=== PATIENT | female | born 1935 | race Caucasian/White ===

== ENCOUNTER 2017-02-01 21:40 | Inpatient (IN) | payer MEDICARE, MEDICAID ==
[~2017-02-01] VITALS: Ht 172.7 cm; Wt 87.0 kg
[~2017-02-01 21:40] MED LIST: ASPI325T PO; LORTA5 PO
[2017-02-01 21:50] VITALS: BP 126/64; PULSE 103; RESP 18; TEMP 98; O2SAT 92
[2017-02-01] MEDS ORDERED: SODIUM CHLOR 0.9% 1000 ML INJ 1,000 ML IV SCH (21:53)
[2017-02-01] MEDS ORDERED: ATOR20TA15 PO (21:55)
[2017-02-01] MEDS ORDERED: METO25TA3 PO (21:55)
[2017-02-01] MEDS ORDERED: PLAV75TA29 PO (21:55)
[2017-02-01] MEDS ORDERED: LINA145C PO (21:55)
[2017-02-01] MEDS ORDERED: RESP: ALBUTEROL 2.5 MG/IPRATROPIUM 0.5 MG NEB (SCH) INH ONE (22:00)
[2017-02-01 22:21] LABS: AUTOMATED NEUTROPHIL # 5.2 TH/MM3 (1.8-7.7); BASOPHIL % 0.4 % (0.0-2.0); EOSINOPHIL # 0.1 TH/MM3 (0-0.4); EOSINOPHIL % 1.3 % (0.0-4.0); HEMATOCRIT 39.2 % (35.0-46.0); HEMO FLAGS DIFF FINAL; LYMPH % 27.9 % (9.0-44.0); LYMPHOCYTE # 2.3 TH/MM3 (1.0-4.8); MEAN CELL VOLUME 94.4 FL (80.0-100.0); MEAN CORPUSCULAR HEMOGLOBIN 31.2 PG (27.0-34.0); MEAN CORPUSCULAR HGB CONC 33.1 % (32.0-36.0); MONO % 8.2 % (0.0-8.0); NEUT % 62.2 % (16.0-70.0); PLATELET COUNT 183 TH/MM3 (150-450); RED BLOOD COUNT 4.16 MIL/MM3 (4.00-5.30); RED CELL DISTRIBUTION WIDTH 14.7 % (11.6-17.2); WHITE BLOOD COUNT 8.3 TH/MM3 (4.0-11.0)
--- NOTE | 2017-02-01 22:22 | PD ---
HPI Chief Complaint: GI Complaint Time Seen by Provider: 21:45 Travel History International Travel<30 days: No Contact w/Intl Traveler<30days: No Traveled to known affect area: No History of Present Illness HPI 83-year-old female that presents to the ED for evaluation of constipation 10 days. Patient has a history of asthma as well as ACS. Per patient she has no chest pain but she was also found to be short of breath on examination by ambulance. Patient called ambulance because she couldn't handle the constipation anymore. Per patient she went to urgent care yesterday and she was prescribed Linzess which has not provided any relief. Per patient she started everything [id number] including an NM with minimal relief. She does pass gas but she's not able to pass stool. She denies any recent surgeries or any surgeries to her abdomen. The only surgery she's ever had was stents to her heart this was 2 years ago. She states that she feels short of breath but denies any other symptom. She was given breathing treatments by ambulance with resolution of this. Per patient she feels nauseous but she has not vomited. Per patient she's not been able to take the medication today because she feels very nauseous. She states having abdominal cramping mainly on the lower abdomen. No blood in the stool. No fevers chills or sweats. No other medical issues at this time. No chest pain. Pain per patient if any is 4 out of 10. Patient personally. Denies taking any narcotic medications. PFSH Past Medical History Arthritis: No Asthma: Yes Heart Rhythm Problems: No Cancer: No Cardiovascular Problems: Yes High Cholesterol: Yes Chest Pain: No Congestive Heart Failure: Yes COPD: No Diminished Hearing: No Endocrine: No Genitourinary: No Hypertension: Yes Immune Disorder: No Musculoskeletal: No Neurologic: No Psychiatric: No Reproductive: No Respiratory: Yes Myocardial Infarction: Yes Sleep Apnea: Yes Influenza Vaccination: No Menopausal: Yes : 9 Para: 9 Past Surgical History Abdominal Surgery: No Cardiac Surgery: Yes (STENT) Ear Surgery: No Endocrine Surgery: No Eye Surgery: Yes (RIGHT EYE REMOVED CATARACTS) Genitourinary Surgery: No Gynecologic Surgery: No Oral Surgery: No Thoracic Surgery: No Other Surgery: Yes Social History Alcohol Use: No Tobacco Use: No Substance Use: No Allergies-Medications (Allergen,Severity, Reaction): Coded Allergies: penicillin G (Unverified Allergy, Severe, 02/01/17) Reported Meds & Prescriptions Reported Meds & Active Scripts Active Reported Linzess (Linaclotide) 145 Mcg Cap 145 Mcg PO DAILY Plavix (Clopidogrel Bisulfate) 75 Mg Tab 75 Mg PO HS Atorvastatin (Atorvastatin Calcium) 20 Mg Tab 20 Mg PO HS Metoprolol Tartrate 25 Mg Tab 25 Mg PO DAILY Review of Systems Except as stated in HPI: all other systems reviewed are Neg Physical Exam Narrative GENERAL: SKIN: Warm and dry. HEAD: Atraumatic. Normocephalic. EYES: Pupils equal and round. No scleral icterus. No injection or drainage. ENT: No nasal bleeding or discharge. Mucous membranes pink and moist. Tongue is midline. No uvula deviation. NECK: Trachea midline. No JVD. CARDIOVASCULAR: Regular rate and rhythm. No murmurs, S3, S4. RESPIRATORY: No accessory muscle use. Expiratory wheezing heard in all lung manriquez. Breath sounds equal bilaterally. GASTROINTESTINAL: Abdomen soft, mildly tender in the lower abdomen, nondistended. Hepatic and splenic margins not palpable. Rectal exam done with female nurse present. Patient does have old hemorrhoids on the and no wall but none insight. No obvious masses or deformities or stool noted on rectal exam. Hemoccult was done and was negative. MUSCULOSKELETAL: Extremities without clubbing, cyanosis, or edema. No obvious deformities. Full range of motion of the upper and lower extremities bilaterally. 2+ pulses bilaterally. NEUROLOGICAL: Awake and alert. No obvious cranial nerve deficits. Motor grossly within normal limits. Five out of 5 muscle strength in the arms and legs. Normal speech. PSYCHIATRIC: Appropriate mood and affect; insight and judgment normal. Data Data Last Documented VS Vital Signs Date Time Temp Pulse Resp B/P (MAP) Pulse Ox O2 Delivery O2 Flow Rate FiO2 02/01/17 21:50 98.0 103 18 126/64 (84) 92 Orders Orders Complete Blood Count With Diff (02/01/17 21:53) Comprehensive Metabolic Panel (02/01/17 21:53) Lipase (02/01/17 21:53) Urinalysis - C+S If Indicated (02/01/17 21:53) Abdomen, Flat & Upright (02/01/17 ) Iv Access Insert/Monitor (02/01/17 21:53) Sodium Chlor 0.9% 1000 Ml Inj (Ns 1000 M (02/01/17 21:53) Chest, Single Ap (02/01/17 21:53) Albuterol-Ipratropium Neb (Duoneb Neb) (02/01/17 22:00) Fleets Enema (Adult) (Fleets Enema (Adul (02/01/17 22:30) Labs Laboratory Tests Test 02/01/17 21:22 White Blood Count 8.3 TH/MM3 Red Blood Count 4.16 MIL/MM3 Hemoglobin 13.0 GM/DL Hematocrit 39.2 % Mean Corpuscular Volume 94.4 FL Mean Corpuscular Hemoglobin 31.2 PG Mean Corpuscular Hemoglobin Concent 33.1 % Red Cell Distribution Width 14.7 % Platelet Count 183 TH/MM3 Mean Platelet Volume 9.7 FL Neutrophils (%) (Auto) 62.2 % Lymphocytes (%) (Auto) 27.9 % Monocytes (%) (Auto) 8.2 % Eosinophils (%) (Auto) 1.3 % Basophils (%) (Auto) 0.4 % Neutrophils # (Auto) 5.2 TH/MM3 Lymphocytes # (Auto) 2.3 TH/MM3 Monocytes # (Auto) 0.7 TH/MM3 Eosinophils # (Auto) 0.1 TH/MM3 Basophils # (Auto) 0.0 TH/MM3 CBC Comment DIFF FINAL Differential Comment MDM Medical Decision Making Medical Screen Exam Complete: Yes Emergency Medical Condition: Yes Medical Record Reviewed: Yes Differential Diagnosis Constipation versus COPD versus asthma versus diverticulitis versus obstruction versus partial obstruction Narrative Course 81-year-old female that presents to the ED for evaluation of constipation. Patient was properly examined and was found to have signs and symptoms consistent appears to be constipation. Possible asthma exacerbation as well. On exam patient does have symmetric and wheezing heard but she is not symptomatic at this time after given 2 breathing treatments with good relief. Labs and imaging ordered. Patient was given a breathing treatment here. Given IV fluids. Rectal exam was benign and I do not feel any sign of fecal impaction to disimpact. Case signed out to my attending pending disposition. Corey Castillo Feb 01, 2017 22:22
[2017-02-01] MEDS ORDERED: SOD PHOSPHATE/SOD BIPHOSPHATE (ADULT) ENEMA 133ML RECTAL ONE (22:30)
[2017-02-01 22:58] LABS: ANION GAP 9 MEQ/L (5-15); AST (GOT) 17 U/L (15-37); BICARBONATE 28.3 MEQ/L (21.0-32.0); BLOOD UREA NITROGEN 10 MG/DL (7-18); CHLORIDE 103 MEQ/L (98-107); GLOMERULAR FILTRATION RATE 74 ML/MIN (>89); SODIUM (NA) 140 MEQ/L (136-145)
[2017-02-01 22:59] LABS: ALT (GPT) 17 U/L (10-53)
[2017-02-01 23:01] LABS: ALKALINE PHOSPHATASE 80 U/L (45-117); TOTAL BILIRUBIN ADULT 0.6 MG/DL (0.2-1.0)
--- NOTE | 2017-02-01 23:02 | RADRPT ---
EXAM DATE/TIME: 02/01/2017 22:42 [facility] COMPARISON: No previous studies available for comparison. INDICATIONS : Shortness of breath. MEDICAL HISTORY : Hypertension. Hypercholesterolemia. Congestive heart failure. Asthma. SURGICAL HISTORY : Cardiac stent. ENCOUNTER: Initial ACUITY: 3 days PAIN SCORE: 0/10 LOCATION: Bilateral chest FINDINGS: Trace basilar atelectasis, mostly on the left. No large effusion. No pneumothorax. Heart size upper limits of normal. Thoracic aorta is atherosclerotic. CONCLUSION: Very mild bibasilar atelectasis and borderline cardiomegaly. Francis Zafar MD on February 01, 2017 at 23:00 Board Certified Radiologist. This report was verified electronically.
--- NOTE | 2017-02-01 23:05 | RADRPT ---
EXAM DATE/TIME: 02/01/2017 22:43 [facility] COMPARISON: No previous studies available for comparison. INDICATIONS : Abdominal pain and constipation. MEDICAL HISTORY : Hypertension. Hypercholesterolemia. Congestive heart failure. Asthma. SURGICAL HISTORY : Cardiac stent. ENCOUNTER: Initial ACUITY: 1 week PAIN SCORE: 8/10 LOCATION: Abdomen. FINDINGS: Colon is upper limits of normal diffusely. There is thumbprinting noted indicative of wall thickening , especially transverse colon. No small bowel or gastric distention. No free air. CONCLUSION: Suspected colitis. Nonobstructive pattern. Francis Zafar MD on February 01, 2017 at 23:03 Board Certified Radiologist. This report was verified electronically.
--- NOTE | 2017-02-01 23:47 | PD ---
Data Data Last Documented VS Vital Signs Date Time Temp Pulse Resp B/P (MAP) Pulse Ox O2 Delivery O2 Flow Rate FiO2 02/01/17 21:50 98.0 103 18 126/64 (84) 92 Orders Orders Complete Blood Count With Diff (02/01/17 21:53) Comprehensive Metabolic Panel (02/01/17 21:53) Lipase (02/01/17 21:53) Urinalysis - C+S If Indicated (02/01/17 21:53) Abdomen, Flat & Upright (02/01/17 ) Iv Access Insert/Monitor (02/01/17 21:53) Sodium Chlor 0.9% 1000 Ml Inj (Ns 1000 M (02/01/17 21:53) Chest, Single Ap (02/01/17 21:53) Albuterol-Ipratropium Neb (Duoneb Neb) (02/01/17 22:00) Fleets Enema (Adult) (Fleets Enema (Adul (02/01/17 22:30) Ct Abd/Pel W/O Iv Contrast (02/01/17 22:57) Potassium Chloride (Kcl) (02/02/17 00:15) Urine Culture (02/02/17 01:00) Ciprofloxacin 400 Mg Premix (Cipro 400 M (02/02/17 01:45) Metronidazole 500 Mg Inj (Flagyl 500 Mg (02/02/17 01:45) Admit Order (Ed Use Only) (02/02/17 ) Vital Signs (Adult) Q4H (02/02/17 01:38) Diet Npo (02/02/17 Breakfast) Activity Bed Rest (02/02/17 01:38) Labs Laboratory Tests Test 02/01/17 21:22 02/02/17 01:00 White Blood Count 8.3 TH/MM3 Red Blood Count 4.16 MIL/MM3 Hemoglobin 13.0 GM/DL Hematocrit 39.2 % Mean Corpuscular Volume 94.4 FL Mean Corpuscular Hemoglobin 31.2 PG Mean Corpuscular Hemoglobin Concent 33.1 % Red Cell Distribution Width 14.7 % Platelet Count 183 TH/MM3 Mean Platelet Volume 9.7 FL Neutrophils (%) (Auto) 62.2 % Lymphocytes (%) (Auto) 27.9 % Monocytes (%) (Auto) 8.2 % Eosinophils (%) (Auto) 1.3 % Basophils (%) (Auto) 0.4 % Neutrophils # (Auto) 5.2 TH/MM3 Lymphocytes # (Auto) 2.3 TH/MM3 Monocytes # (Auto) 0.7 TH/MM3 Eosinophils # (Auto) 0.1 TH/MM3 Basophils # (Auto) 0.0 TH/MM3 CBC Comment DIFF FINAL Differential Comment Blood Urea Nitrogen 10 MG/DL Creatinine 0.75 MG/DL Random Glucose 103 MG/DL Total Protein 7.5 GM/DL Albumin 3.4 GM/DL Calcium Level 8.8 MG/DL Alkaline Phosphatase 80 U/L Aspartate Amino Transf (AST/SGOT) 17 U/L Alanine Aminotransferase (ALT/SGPT) 17 U/L Total Bilirubin 0.6 MG/DL Sodium Level 140 MEQ/L Potassium Level 3.0 MEQ/L Chloride Level 103 MEQ/L Carbon Dioxide Level 28.3 MEQ/L Anion Gap 9 MEQ/L Estimat Glomerular Filtration Rate 74 ML/MIN Lipase 52 U/L Urine Color YELLOW Urine Turbidity HAZY Urine pH 5.5 Urine Specific [place] 1.015 Urine Protein TRACE mg/dL Urine Glucose (UA) NEG mg/dL Urine Ketones NEG mg/dL Urine Occult Blood NEG Urine Nitrite NEG Urine Bilirubin NEG Urine Urobilinogen 2.0 MG/DL Urine Leukocyte Esterase TRACE Urine RBC 1 /hpf Urine WBC 11 /hpf Urine Squamous Epithelial Cells 2 /hpf Urine Mucus MANY /lpf Microscopic Urinalysis Comment CULTURE INDICATED MDM Medical Record Reviewed: Yes Supervised Visit with TARSHA: No Narrative Course I, Dr. Arce, have reviewed the advance practice practitioner's documentation and am in agreement, met with the patient face to face, made the diagnosis, and the medical decision making was done by me. *My assessment and Findings: CBC & BMP Diagram 02/01/17 21:22 Total Protein 7.5, Albumin 3.4, Calcium Level 8.8, Alkaline Phosphatase 80, Aspartate Amino Transf (AST/SGOT) 17, Alanine Aminotransferase (ALT/SGPT) 17, Total Bilirubin 0.6 Case was discussed with the hospitalist. There is concerned the patient suffering from colon cancer potentially leading to obstruction. Diagnosis Primary Impression: Bowel obstruction Qualified Codes: K56.609 - Unspecified intestinal obstruction, unspecified as to partial versus complete obstruction Additional Impressions: Colonic mass Colitis Hypokalemia Admitting Information Admitting Physician Requests: Admit Naseem Arce MD Feb 01, 2017 23:47
[2017-02-02] MEDS ORDERED: POTASSIUM CHLORIDE 20 MEQ CONTROLLED RELEASE TAB PO ONE (00:15)
--- NOTE | 2017-02-02 00:32 | RADRPT ---
EXAM DATE/TIME: 02/01/2017 23:56 [facility] COMPARISON: No previous studies available for comparison. INDICATIONS : Abdominal pain; possible obstruction ORAL CONTRAST: No oral contrast ingested. RADIATION DOSE: 15.32 CTDIvol (mGy) MEDICAL HISTORY : Cardiovascular disease. Congestive heart failure. Hypertension.Asthma SURGICAL HISTORY : None. ENCOUNTER: Initial ACUITY: 2 days PAIN SCALE: 7/10 LOCATION: abdomen TECHNIQUE: Volumetric scanning of the abdomen and pelvis was performed. Using automated exposure control and ad justment of the mA and/or kV according to patient size, radiation dose was kept as low as reasonably achievable to obtain optimal diagnostic quality images. DICOM format image data is available electro nically for review and comparison. FINDINGS: LOWER LUNGS: The visualized lower lungs are clear. LIVER: 1 cm hypodensity of the left hepatic lobe, most likely a cyst. Liver otherwise appears normal. Increa sed attenuation of the gallbladder suggesting sludge or numerous gravel like stones. No ductal dilata tion. SPLEEN: Normal size without lesion. PANCREAS: Within normal limits. KIDNEYS: Normal in size and shape. There is no mass, stone, or hydronephrosis. ADRENAL GLANDS: Within normal limits. VASCULAR: There is no aortic aneurysm. BOWEL/MESENTERY: There is moderate diverticulosis of the sigmoid colon. An approximately 6 mm long area of wall thicke anna and narrowing seen at the mid sigmoid colon, series 2 image 84. There is some shouldering of the wall thickening noted, especially distally, of concern for underlying mass. There is mild dilatation , wall thickening and pericolonic edema of the upstream colon all the way to the cecum.. The appendix is normal. ABDOMINAL WALL: Within normal limits. RETROPERITONEUM: There is no lymphadenopathy. BLADDER: No wall thickening or mass. REPRODUCTIVE: Within normal limits. INGUINAL: There is no lymphadenopathy or hernia. MUSCULOSKELETAL: No acute bony abnormality demonstrated. No lytic or sclerotic lesion seen. CONCLUSION: 1. 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 No evidence of metastatic disease. 2. 1 cm hypodensity of the left hepatic lobe is most likely a cyst. Francis Zafar MD on February 02, 2017 at 0:25 Board Certified Radiologist. This report was verified electronically.
[2017-02-02 01:22] LABS: BLOOD, URINE NEG (NEG); COMMENT (UR) CULTURE INDICATED; CULTURE IF INDICATED CULTURE INDICATED; GLUCOSE,URINE NEG (NEG); KETONE, URINE NEG (NEG); MUCUS URINE MANY /lpf (OCC); NITRITE,URINE NEG (NEG); PH, URINE 5.5 (5.0-8.5); SQUAMOUS EPITHELIAL CELL URINE 2 /hpf (0-5); URINE COLOR YELLOW (YELLW/STRAW)
[2017-02-02] MEDS ORDERED: BISACODYL 10 MG SUPP RECTAL PRN (01:45)
[2017-02-02] MEDS ORDERED: SODIUM CHLORIDE 0.9% FLUSH 10 ML FLUSH IV FLUSH PRN (01:45)
[2017-02-02] MEDS ORDERED: CIPROFLOXACIN 400 MG PREMIX 200 ML IV ONE (01:45)
[2017-02-02] MEDS ORDERED: MAGNESIUM HYDROXIDE SUSP 30 ML CUP PO PRN (01:45)
[2017-02-02] MEDS ORDERED: LACTULOSE SYRUP 20 GM/30 ML CUP PO PRN (01:45)
[2017-02-02] MEDS ORDERED: ACETAMINOPHEN 325 MG TAB PO PRN (01:45)
[2017-02-02] MEDS ORDERED: SENNOSIDES 8.6 MG TAB PO PRN (01:45)
[2017-02-02] MEDS ORDERED: MORPHINE SULFATE 4 MG/ML INJ IV PUSH PRN ×2 (01:45)
[2017-02-02] MEDS ORDERED: metroNIDAZOLE 500 MG INJ 100 ML IV ONE (01:45)
[2017-02-02] MEDS ORDERED: MORPHINE SULFATE 2 MG/ML INJ IV PRN (02:15)
--- NOTE | 2017-02-02 02:35 | HHI.HP ---
[facility] Service [place] [facility] Primary Care Physician Unknown Admission Diagnosis Colon Mass; Poss Colitis; Partial Obstruction Diagnoses: (1) Colitis Diagnosis: Principal (2) Bowel obstruction Diagnosis: Principal (3) Colonic mass Diagnosis: Principal (4) Hypokalemia Diagnosis: Principal Travel History International Travel<30 Days: No Contact w/Intl Traveler <30 Da: No Traveled to Known Affected Are: No History of Present Illness This is an 81-year-old female with a PMH of HTN, Hyperlipidemia and CHF (Echo w/ EF 45-50%) who presented to the ER w/ complaints of abdominal pain and constipation for approx 1wk. Seen at [facility]gent [facility] yesterday for similar symptoms and prescribed Linzess w/ no improvement. +flatulence. Denies fever, chills, nausea or vomiting. On arrival, BP 126/64, HR 103, O2 sat 92% on RA, Afebrile. CBC unremarkable. Chemistry unremarkable except for GFR 74. K+ 3.0. UA w/ bacteriuria. CXR with mild basilar atelectasis. Abdominal X-ray suspected colitis, nonobstructive pattern. 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 S/p Cipro/Flagyl in ER. Review of Systems Except as stated in HPI: all other systems reviewed are Neg ROS: 14 point review of systems otherwise negative. Past Family Social History Past Medical History PMH: HTN, Hyperlipidemia and CHF (Echo 03/15/12 w/ EF 45-50%) Past Surgical History PAST SURGICAL HISTORY: Cardiac Stent, Cataract Surgery Allergies: Coded Allergies: penicillin G (Unverified Allergy, Severe, 02/01/17) Family History PAST FAMILY HISTORY: Reviewed. No h/o DM or CAD Social History PAST SOCIAL HISTORY: Negative for alcohol, tobacco or drugs. Physical Exam Vital Signs Vital Signs Date Time Temp Pulse Resp B/P (MAP) Pulse Ox O2 Delivery O2 Flow Rate FiO2 02/01/17 21:50 98.0 103 18 126/64 (84) 92 Physical Exam PE: GENERAL: Elderly female in no acute distress. HEENT: PERRLA, EOMI. No scleral icterus or conjunctival pallor. No lid lag or facial droop. CARDIOVASCULAR: Regular rate and rhythm. No obvious murmurs to auscultation. No chest tenderness to palpation. RESPIRATORY: No obvious rhonchi or wheezing. Clear to auscultation. Breath sounds equal bilaterally. GASTROINTESTINAL: Abdomen soft, mild generalized tenderness to palpation, nondistended. BS normal. MUSCULOSKELETAL: Extremities without clubbing, cyanosis, or edema. No obvious deformities. NEUROLOGICAL: Awake, alert and oriented x4. No focal neurologic deficits. Moving both upper and lower extremities spontaneously. Laboratory Laboratory Tests Test 02/01/17 21:22 02/02/17 01:00 White Blood Count 8.3 Red Blood Count 4.16 Hemoglobin 13.0 Hematocrit 39.2 Mean Corpuscular Volume 94.4 Mean Corpuscular Hemoglobin 31.2 Mean Corpuscular Hemoglobin Concent 33.1 Red Cell Distribution Width 14.7 Platelet Count 183 Mean Platelet Volume 9.7 Neutrophils (%) (Auto) 62.2 Lymphocytes (%) (Auto) 27.9 Monocytes (%) (Auto) 8.2 Eosinophils (%) (Auto) 1.3 Basophils (%) (Auto) 0.4 Neutrophils # (Auto) 5.2 Lymphocytes # (Auto) 2.3 Monocytes # (Auto) 0.7 Eosinophils # (Auto) 0.1 Basophils # (Auto) 0.0 CBC Comment DIFF FINAL Differential Comment Blood Urea Nitrogen 10 Creatinine 0.75 Random Glucose 103 Total Protein 7.5 Albumin 3.4 Calcium Level 8.8 Alkaline Phosphatase 80 Aspartate Amino Transf (AST/SGOT) 17 Alanine Aminotransferase (ALT/SGPT) 17 Total Bilirubin 0.6 Sodium Level 140 Potassium Level 3.0 Chloride Level 103 Carbon Dioxide Level 28.3 Anion Gap 9 Estimat Glomerular Filtration Rate 74 Lipase 52 Urine Color YELLOW Urine Turbidity HAZY Urine pH 5.5 Urine Specific [place] 1.015 Urine Protein TRACE Urine Glucose (UA) NEG Urine Ketones NEG Urine Occult Blood NEG Urine Nitrite NEG Urine Bilirubin NEG Urine Urobilinogen 2.0 Urine Leukocyte Esterase TRACE Urine RBC 1 Urine WBC 11 Urine Squamous Epithelial Cells 2 Urine Mucus MANY Microscopic Urinalysis Comment CULTURE INDICATED Date/Time Source Procedure Growth Status 02/02/17 01:00 Urine Clean Catch Urine Culture Pending Received Result Diagram: 02/01/17212102/01/172121 Caprini VTE Risk Assessment Caprini VTE Risk Assessment: No/Low Risk (score <= 1) Caprini Risk Assessment Model Point Value = 1 Point Value = 2 Point Value = 3 Point Value = 5 Age 41-60 Minor surgery BMI > 25 kg/m2 Swollen legs Varicose veins or History of unexplained or recurrent spontaneous Oral contraceptives or hormone replacement Sepsis (< 1 month) Serious lung disease, including pneumonia (< 1 month) Abnormal pulmonary function Acute myocardial infarction Congestive heart failure (< 1 month) History of inflammatory bowel disease Medical patient at bed rest Age 61-74 Arthroscopic surgery Major open surgery (> 45 min) Laparoscopic surgery (> 45 min) Malignancy Confined to bed (> 72 hours) Immobilizing plaster cast Central venous access Age >= 75 History of VTE Family history of VTE Factor V Leiden Prothrombin [id number] Lupus anticoagulant Anticardiolipin antibodies Elevated serum homocysteine Heparin-induced thrombocytopenia Other congenital or acquired thrombophilia Stroke (< 1 month) Elective arthroplasty Hip, pelvis, or leg fracture Acute spinal cord injury (< 1 month) Prophylaxis Regimen Total Risk Factor Score Risk Level Prophylaxis Regimen 0-1 Low Early ambulation 2 Moderate Order ONE of the following: *Sequential Compression Device (SCD) *Heparin 5000 units SQ BID 3-4 Higher Order ONE of the following medications: *Heparin 5000 units SQ TID *Enoxaparin/Lovenox 40 mg SQ daily (WT < 150 kg, CrCl > 30 mL/min) *Enoxaparin/Lovenox 30 mg SQ daily (WT < 150 kg, CrCl > 10-29 mL/min) *Enoxaparin/Lovenox 30 mg SQ BID (WT < 150 kg, CrCl > 30 mL/min) AND/OR *Sequential Compression Device (SCD) 5 or more Highest Order ONE of the following medications: *Heparin 5000 units SQ TID (Preferred with Epidurals) *Enoxaparin/Lovenox 40 mg SQ daily (WT < 150 kg, CrCl > 30 mL/min) *Enoxaparin/Lovenox 30 mg SQ daily (WT < 150 kg, CrCl > 10-29 mL/min) *Enoxaparin/Lovenox 30 mg SQ BID (WT < 150 kg, CrCl > 30 mL/min) AND *Sequential Compression Device (SCD) Assessment and Plan Problem List: (1) Colitis ICD Code: K52.9 - Noninfective gastroenteritis and colitis, unspecified (2) Bowel obstruction ICD Code: K56.609 - Unspecified intestinal obstruction, unspecified as to partial versus complete obstruction (3) Colonic mass ICD Code: K63.9 - Disease of intestine, unspecified (4) Hypokalemia ICD Code: E87.6 - Hypokalemia Assessment and Plan A/P: 1. Colitis: CT Abd/Pelvis w/ mild colitis, images reviewed by me. Afebrile. WBC normal. S/p Cipro/Flagyl in ER, will continue w/ IV Abx. 2. Bowel Obstruction: h/o constipation for approx 1wk, +flatulence, CT Abd/ Pelvis w/ suspected colon mass and obstruction, images reviewed by me. NPO, IVF , Gen Sx for further eval. Analgesics as needed, caution w/ obstruction. 3. 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 Gen Sx for eval, likely Oncology consult. 4. Hypokalemia: K+ 3.0, s/p replacement in ER, will recheck labs and replace as needed. 5. DVT Prophylaxis: SCD/Teds. 6. Social work for d/c planning as needed. 7. Case discussed w/ ER physician at length. Physician Certification 2 Midnight Certification Type: Admission for Inpatient Services Order for Inpatient Services The services are ordered in accordance with Medicare regulations or non- Medicare payer requirements, as applicable. In the case of services not specified as inpatient-only, they are appropriately provided as inpatient services in accordance with the 2-midnight benchmark. Estimated LOS (days): 2 days is the estimated time the patient will need to remain in the hospital, assuming treatment plan goals are met and no additional complications. Post-Hospital Plan: Not yet determined Lachelle Bell MD Feb 02, 2017 02:35
[2017-02-02 04:15] VITALS: BP_SYST 119; BP_SYST 122; BP_DIAS 56; BP_DIAS 93; PULSE 108; PULSE 87; RESP 18; RESP 19; TEMP 96.5; TEMP 97; O2SAT 100; O2SAT 96
[2017-02-02] MEDS: SODIUM CHLOR 0.9% 1000 ML INJ 1,000 ML IV SCH ×3 (04:39→22:54)
[2017-02-02 07:31] VITALS: BP 100/50; PULSE 83; RESP 19; TEMP 98; O2SAT 92
[2017-02-02] MEDS: SODIUM CHLORIDE 0.9% FLUSH 10 ML FLUSH IV FLUSH SCH ×2 (09:00→21:00)
[2017-02-02] MEDS: metroNIDAZOLE 500 MG INJ 100 ML IV SCH ×2 (09:35→17:41)
[2017-02-02] MEDS: DOCUSATE SODIUM 50 MG/SENNA 8.6 MG TAB PO SCH ×2 (09:35→21:51)
[2017-02-02 11:36] VITALS: BP 111/56; PULSE 81; RESP 19; TEMP 98.1; O2SAT 91
--- NOTE | 2017-02-02 11:49 | HHI.PR ---
Subjective Remarks Follow-up colitis/bowel obstruction 02/02/17-patient seen and examined, denies any significant abdominal pain. Objective Vitals Vital Signs Date Time Temp Pulse Resp B/P (MAP) Pulse Ox O2 Delivery O2 Flow Rate FiO2 02/02/17 11:36 98.1 81 19 111/56 (74) 91 02/02/17 07:31 98.0 83 19 100/50 (67) 92 02/02/17 04:15 97.0 87 18 122/56 (78) 96 02/01/17 21:50 98.0 103 18 126/64 (84) 92 I/O 02/01/17 02/01/17 02/01/17 02/02/17 02/02/17 02/02/17 07:00 15:00 23:00 07:00 15:00 23:00 Intake Total 1000 ml 200 ml Balance 1000 ml 200 ml Intake Oral 0 ml IV Total 1000 ml 200 ml # Voids 1 # Bowel Movements 1 Result Diagram: 02/01/17212102/01/172121 Imaging Last Impressions Abdomen/Pelvis CT 02/01/172256 Signed Impressions: Service Date/Time: Wednesday, February 01, 2017 23:56 - CONCLUSION: 1. 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 No evidence of metastatic disease. 2. 1 cm hypodensity of the left hepatic lobe is most likely a cyst. Francis Zafar MD Chest X-Ray 02/01/172152 Signed Impressions: Service Date/Time: Wednesday, February 01, 2017 22:42 - CONCLUSION: Very mild bibasilar atelectasis and borderline cardiomegaly. Francis Zafar MD Abdomen X-Ray 02/01/17 0000 Signed Impressions: Service Date/Time: Wednesday, February 01, 2017 22:43 - CONCLUSION: Suspected colitis. Nonobstructive pattern. Francis Zafar MD Objective Remarks GENERAL: NAD SKIN: Warm and dry. HEAD: Normocephalic. EYES: No scleral icterus. No injection or drainage. NECK: Supple, trachea midline. No JVD or lymphadenopathy. CARDIOVASCULAR: Regular rate and rhythm without murmurs, gallops, or rubs. RESPIRATORY: Breath sounds equal bilaterally. No accessory muscle use. GASTROINTESTINAL: Abdomen soft, non-tender, nondistended. hypoactive BS MUSCULOSKELETAL: No cyanosis, or edema. BACK: Nontender without obvious deformity. No CVA tenderness. A/P Problem List: (1) Colitis ICD Code: K52.9 - Noninfective gastroenteritis and colitis, unspecified (2) Bowel obstruction ICD Code: K56.609 - Unspecified intestinal obstruction, unspecified as to partial versus complete obstruction (3) Colonic mass ICD Code: K63.9 - Disease of intestine, unspecified (4) Hypokalemia ICD Code: E87.6 - Hypokalemia Assessment and Plan 81 year-old female with 1. Colitis: CT Abd/Pelvis w/ mild colitis. Afebrile. WBC normal. S/p Cipro/ Flagyl in ER, continue w/ IV Abx. 2. Bowel Obstruction: h/o constipation for approx 1wk, +flatulence, CT Abd/ Pelvis w/ suspected colon mass and obstruction. NPO, IVF, pending Gen Sx for further eval. Analgesics as needed, caution w/ obstruction. 3. 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 Gen Sx for eval pending, likely Oncology consult. 4. Hypokalemia: Replace electrolytes and monitor 5. DVT Prophylaxis: SCD/Teds. Problem Qualifiers (1) Bowel obstruction: Qualified Codes: K56.609 - Unspecified intestinal obstruction, unspecified as to partial versus complete obstruction Tee Santillan MD Feb 02, 2017 11:49
--- NOTE | 2017-02-02 14:47 | PD.CONS ---
HPI Service General Surgery Consult Requested By Dr. Bell Reason for Consult obstructing colon mass Primary Care Physician Unknown History of Present Illness 81 yo F with one week history of constipation, nausea, and decreased appetite. She states that prior to this she felt well. She denies blood in her stools. She has never had a colonoscopy. CT a/p reveals sigmoid thickening/mass with proximal mild obstruction. She has h/o cardiac cath with stent placement in 2014 and is on plavix. She does not see a wire brusher. Review of Systems Constitutional: COMPLAINS OF: Change in appetite, DENIES: Fever, Chills Eyes: DENIES: Eye inflammation, Eye pain Ears, nose, mouth, throat: DENIES: Throat pain, Hoarseness Respiratory: DENIES: Cough, Shortness of breath Cardiovascular: DENIES: Chest pain, Palpitations Gastrointestinal: COMPLAINS OF: Nausea, Anorexia Musculoskeletal: DENIES: Muscle aches, Stiffness Integumentary: DENIES: Pruritus, Rash Neurologic: DENIES: Seizures, Speech Problems Past Family Social History Past Medical History Peptic ulcer disease Coronary artery disease CHF Hyperlipidemia Past Surgical History Cardiac catheterization with stent placement Reported Medications Reported Meds & Active Scripts Active Reported Linzess (Linaclotide) 145 Mcg Cap 145 Mcg PO DAILY Plavix (Clopidogrel Bisulfate) 75 Mg Tab 75 Mg PO HS Atorvastatin (Atorvastatin Calcium) 20 Mg Tab 20 Mg PO HS Metoprolol Tartrate 25 Mg Tab 25 Mg PO DAILY Allergies: Coded Allergies: penicillin G (Unverified Allergy, Severe, 02/01/17) Active Ordered Medications Current Medications Medications (Trade) Dose Ordered Sig/Lizy Route Start Time Stop Time Status Last Admin Metronidazole 100 ml @ 100 mls/hr Q8H IV 02/02/17 10:00 02/02/17 09:35 Ciprofloxacin/ Dextrose 200 ml @ 200 mls/hr Q12H IV 02/02/17 23:00 Sodium Chloride 1,000 ml @ 100 mls/hr Q10H IV 02/02/17 01:39 02/02/17 04:39 (NS Flush) 2 ml UNSCH PRN IV FLUSH 02/02/17 01:45 (NS Flush) 2 ml BID IV FLUSH 02/02/17 09:00 02/02/17 09:00 (Zofran Inj) 4 mg Q6H PRN IVP 02/02/17 01:45 (Tylenol) 650 mg Q6H PRN PO 02/02/17 01:45 (Sulma-Colace) 1 tab BID PO 02/02/17 09:00 02/02/17 09:35 (Milk Of Magnesia Liq) 30 ml Q12H PRN PO 02/02/17 01:45 (Senokot) 17.2 mg Q12H PRN PO 02/02/17 01:45 (Dulcolax Supp) 10 mg DAILY PRN RECTAL 02/02/17 01:45 (Lactulose Liq) 30 ml DAILY PRN PO 02/02/17 01:45 (Morphine Inj) 2 mg Q3H PRN IV 02/02/17 02:15 (Morphine Inj) 2 mg Q3H PRN IV 02/02/17 02:15 (Duoneb Neb) 1 ampule Q4HR NEB PRN NEB 02/02/17 02:30 Family History Noncontributory Social History No alcohol tobacco or drug use. Physical Exam Vital Signs Vital Signs Date Time Temp Pulse Resp B/P (MAP) Pulse Ox O2 Delivery O2 Flow Rate FiO2 02/02/17 11:36 98.1 81 19 111/56 (74) 91 02/02/17 07:31 98.0 83 19 100/50 (67) 92 02/02/17 04:15 97.0 87 18 122/56 (78) 96 02/01/17 21:50 98.0 103 18 126/64 (84) 92 Physical Exam GENERAL: Awake and alert. Obese. HEAD: Normocephalic. Atraumatic. EYES: Pupils equal round and reactive to light bilaterally. No scleral icterus. CHEST: Lungs clear to auscultation bilaterally with no wheezing or rhonchi. No respiratory distress. CARDIOVASCULAR: Regular rate and rhythm. ABDOMEN: Moderate distention. Mild diffuse tenderness. SKIN: Warm, dry, nonjaundiced. Laboratory Laboratory Tests Test 02/01/17 21:22 02/02/17 01:00 White Blood Count 8.3 Red Blood Count 4.16 Hemoglobin 13.0 Hematocrit 39.2 Mean Corpuscular Volume 94.4 Mean Corpuscular Hemoglobin 31.2 Mean Corpuscular Hemoglobin Concent 33.1 Red Cell Distribution Width 14.7 Platelet Count 183 Mean Platelet Volume 9.7 Neutrophils (%) (Auto) 62.2 Lymphocytes (%) (Auto) 27.9 Monocytes (%) (Auto) 8.2 Eosinophils (%) (Auto) 1.3 Basophils (%) (Auto) 0.4 Neutrophils # (Auto) 5.2 Lymphocytes # (Auto) 2.3 Monocytes # (Auto) 0.7 Eosinophils # (Auto) 0.1 Basophils # (Auto) 0.0 CBC Comment DIFF FINAL Differential Comment Blood Urea Nitrogen 10 Creatinine 0.75 Random Glucose 103 Total Protein 7.5 Albumin 3.4 Calcium Level 8.8 Alkaline Phosphatase 80 Aspartate Amino Transf (AST/SGOT) 17 Alanine Aminotransferase (ALT/SGPT) 17 Total Bilirubin 0.6 Sodium Level 140 Potassium Level 3.0 Chloride Level 103 Carbon Dioxide Level 28.3 Anion Gap 9 Estimat Glomerular Filtration Rate 74 Lipase 52 Urine Color YELLOW Urine Turbidity HAZY Urine pH 5.5 Urine Specific [place] 1.015 Urine Protein TRACE Urine Glucose (UA) NEG Urine Ketones NEG Urine Occult Blood NEG Urine Nitrite NEG Urine Bilirubin NEG Urine Urobilinogen 2.0 Urine Leukocyte Esterase TRACE Urine RBC 1 Urine WBC 11 Urine Squamous Epithelial Cells 2 Urine Mucus MANY Microscopic Urinalysis Comment CULTURE INDICATED Date/Time Source Procedure Growth Status 02/02/17 01:00 Urine Clean Catch Urine Culture Pending Received Result Diagram: 02/01/17212102/01/172121 Imaging Last Impressions Abdomen/Pelvis CT 02/01/172256 Signed Impressions: Service Date/Time: Wednesday, February 01, 2017 23:56 - CONCLUSION: 1. 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 No evidence of metastatic disease. 2. 1 cm hypodensity of the left hepatic lobe is most likely a cyst. Francis Zafar MD Chest X-Ray 02/01/172152 Signed Impressions: Service Date/Time: Wednesday, February 01, 2017 22:42 - CONCLUSION: Very mild bibasilar atelectasis and borderline cardiomegaly. Francis Zafar MD Abdomen X-Ray 02/01/17 0000 Signed Impressions: Service Date/Time: Wednesday, February 01, 2017 22:43 - CONCLUSION: Suspected colitis. Nonobstructive pattern. Francis Zafar MD Assessment and Plan Assessment and Plan 81 yo F with partially obstructing sigmoid mass vs colitis. I will ask GI for sigmoidoscopy. She is on plavix although her daughter states she has not taken it since . Further tx depending on outcomes of scope. Discussed possibility of sigmoid resection with her briefly. Discussed case with Dr. Whittington. I spoke by phone with her daughter at length regarding current findings and possible treatment options. Morris,Antonio NORTON Feb 02, 2017 14:47
--- NOTE | 2017-02-02 15:10 | PD.CONS ---
HPI History of Present Illness This is a 81 year old female who presented to the ED with c/o abdominal pain and constipation for 1 week. Patient states she usually has a BM daily. Reports episode of nausea and vomiting this morning. Abdominal X-ray suspected colitis, nonobstructive pattern. CT Abdomen/Pelvis w/ suspected adenocarcinoma of sigmoid colon with associated colitis and obstruction upstream, no evidence of metastatic disease. PMH significant for HTN, HLD, and CHF. Never had Colonoscopy. PFSH Past Medical History HTN Hyperlipidemia CHF (Echo 03/15/12 w/ EF 45-50%) Past Surgical History PAST SURGICAL HISTORY: Cardiac Stent, Cataract Surgery Coded Allergies: penicillin G (Unverified Allergy, Severe, 02/01/17) Medications Current Medications Medications (Trade) Dose Ordered Sig/Lizy Route PRN Reason Start Time Stop Time Status Last Admin Dose Admin Metronidazole 100 ml @ 100 mls/hr Q8H IV 02/02/17 10:00 02/02/17 09:35 Ciprofloxacin/ Dextrose 200 ml @ 200 mls/hr Q12H IV 02/02/17 23:00 Sodium Chloride 1,000 ml @ 100 mls/hr Q10H IV 02/02/17 01:39 02/02/17 04:39 Sodium Chloride (NS Flush) 2 ml UNSCH PRN IV FLUSH FLUSH AFTER USING IV ACCESS 02/02/17 01:45 Sodium Chloride (NS Flush) 2 ml BID IV FLUSH 02/02/17 09:00 02/02/17 09:00 Ondansetron HCl (Zofran Inj) 4 mg Q6H PRN IVP NAUSEA OR VOMITING 02/02/17 01:45 Acetaminophen (Tylenol) 650 mg Q6H PRN PO FEVER/PAIN SCALE 1 TO 2 02/02/17 01:45 Senna/Docusate Sodium (Sulma-Colace) 1 tab BID PO 02/02/17 09:00 02/02/17 09:35 Magnesium Hydroxide (Milk Of Magnesia Liq) 30 ml Q12H PRN PO Mild constipation 02/02/17 01:45 Sennosides (Senokot) 17.2 mg Q12H PRN PO Moderate constipation 02/02/17 01:45 Bisacodyl (Dulcolax Supp) 10 mg DAILY PRN RECTAL SEVERE CONSITIPATION 02/02/17 01:45 Lactulose (Lactulose Liq) 30 ml DAILY PRN PO SEVERE CONSITIPATION 02/02/17 01:45 Morphine Sulfate (Morphine Inj) 2 mg Q3H PRN IV PAIN SCALE 3 TO 5 02/02/17 02:15 Morphine Sulfate (Morphine Inj) 2 mg Q3H PRN IV PAIN SCALE 6 TO 10 02/02/17 02:15 Albuterol/ Ipratropium (Duoneb Neb) 1 ampule Q4HR NEB PRN NEB SOB/WHEEZING 02/02/17 02:30 Family History Noncontributory Social History Negative for alcohol, tobacco or drugs. Review of Systems Constitutional: DENIES: Diaphoretic episodes, Fatigue, Fever, Weight gain, Weight loss, Chills, Dizziness, Change in appetite, Night Sweats Endocrine: DENIES: Polydipsia, Polyuria Eyes: DENIES: Blurred vision, Photosensitivity, Double Vision Ears, nose, mouth, throat: DENIES: Hearing loss, Vertigo, Oral lesions, Throat pain, Hoarseness Respiratory: DENIES: Cough, Wheezing, Hemoptysis, Sputum production, Shortness of breath Cardiovascular: DENIES: Chest pain, Palpitations, Syncope, Lower Extremity Edema, Orthopnea, Claudication Gastrointestinal: COMPLAINS OF: Abdominal pain, Constipation, DENIES: Black stools, Bloody stools, Diarrhea, Nausea, Vomiting, Difficulty Swallowing, Anorexia, Odynophagia, Swelling of Abdomen, Heartburn, Hematemesis Genitourinary: DENIES: Urinary frequency, Urinary incontinence, Urgency, Hematuria, Dysuria, Nocturia Musculoskeletal: DENIES: Joint pain, Muscle aches, Stiffness, Joint Swelling, Back pain, Neck pain Integumentary: DENIES: Abnormal pigmentation, Nail changes, Pruritus, Rash, Jaundice Hematologic/lymphatic: DENIES: Bruising, Lymphadenopathy Immunologic/allergic: DENIES: Eczema, Urticaria Neurologic: DENIES: Abnormal gait, Headache, Localized weakness, Paresthesias Psychiatric: DENIES: Anxiety, Confusion, Mood changes, Depression, Agitation, Suicidal Ideation GI Exam Vitals I&O Vital Signs Date Time Temp Pulse Resp B/P (MAP) Pulse Ox O2 Delivery O2 Flow Rate FiO2 02/02/17 11:36 98.1 81 19 111/56 (74) 91 02/02/17 07:31 98.0 83 19 100/50 (67) 92 02/02/17 04:15 97.0 87 18 122/56 (78) 96 02/01/17 21:50 98.0 103 18 126/64 (84) 92 I/O 02/01/17 02/01/17 02/01/17 02/02/17 02/02/17 02/02/17 07:00 15:00 23:00 07:00 15:00 23:00 Intake Total 1000 ml 200 ml 0 ml Balance 1000 ml 200 ml 0 ml Intake Oral 0 ml 0 ml IV Total 1000 ml 200 ml # Voids 1 5 # Bowel Movements 1 Imaging Last Impressions Abdomen/Pelvis CT 02/01/177 Signed Impressions: Service Date/Time: Wednesday, February 01, 2017 23:56 - CONCLUSION: 1. 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 No evidence of metastatic disease. 2. 1 cm hypodensity of the left hepatic lobe is most likely a cyst. Francis Zafar MD Chest X-Ray 02/01/173 Signed Impressions: Service Date/Time: Wednesday, February 01, 2017 22:42 - CONCLUSION: Very mild bibasilar atelectasis and borderline cardiomegaly. Francis Zafar MD Abdomen X-Ray 02/01/17 0000 Signed Impressions: Service Date/Time: Wednesday, February 01, 2017 22:43 - CONCLUSION: Suspected colitis. Nonobstructive pattern. Francis Zafar MD Laboratory Test 02/01/17 21:22 02/02/17 01:00 White Blood Count 8.3 TH/MM3 Red Blood Count 4.16 MIL/MM3 Hemoglobin 13.0 GM/DL Hematocrit 39.2 % Mean Corpuscular Volume 94.4 FL Mean Corpuscular Hemoglobin 31.2 PG Mean Corpuscular Hemoglobin Concent 33.1 % Red Cell Distribution Width 14.7 % Platelet Count 183 TH/MM3 Mean Platelet Volume 9.7 FL Neutrophils (%) (Auto) 62.2 % Lymphocytes (%) (Auto) 27.9 % Monocytes (%) (Auto) 8.2 % Eosinophils (%) (Auto) 1.3 % Basophils (%) (Auto) 0.4 % Neutrophils # (Auto) 5.2 TH/MM3 Lymphocytes # (Auto) 2.3 TH/MM3 Monocytes # (Auto) 0.7 TH/MM3 Eosinophils # (Auto) 0.1 TH/MM3 Basophils # (Auto) 0.0 TH/MM3 CBC Comment DIFF FINAL Differential Comment Blood Urea Nitrogen 10 MG/DL Creatinine 0.75 MG/DL Random Glucose 103 MG/DL Total Protein 7.5 GM/DL Albumin 3.4 GM/DL Calcium Level 8.8 MG/DL Alkaline Phosphatase 80 U/L Aspartate Amino Transf (AST/SGOT) 17 U/L Alanine Aminotransferase (ALT/SGPT) 17 U/L Total Bilirubin 0.6 MG/DL Sodium Level 140 MEQ/L Potassium Level 3.0 MEQ/L Chloride Level 103 MEQ/L Carbon Dioxide Level 28.3 MEQ/L Anion Gap 9 MEQ/L Estimat Glomerular Filtration Rate 74 ML/MIN Lipase 52 U/L Urine Color YELLOW Urine Turbidity HAZY Urine pH 5.5 Urine Specific [place] 1.015 Urine Protein TRACE mg/dL Urine Glucose (UA) NEG mg/dL Urine Ketones NEG mg/dL Urine Occult Blood NEG Urine Nitrite NEG Urine Bilirubin NEG Urine Urobilinogen 2.0 MG/DL Urine Leukocyte Esterase TRACE Urine RBC 1 /hpf Urine WBC 11 /hpf Urine Squamous Epithelial Cells 2 /hpf Urine Mucus MANY /lpf Microscopic Urinalysis Comment CULTURE INDICATED Date/Time Source Procedure Growth Status 02/02/17 01:00 Urine Clean Catch Urine Culture Pending Received Physical Examination HEENT: Normocephalic; atraumatic; no jaundice. NECK: Neck is supple CHEST: CTA CARDIAC: RRR with no murmur gallop or rubs. ABDOMEN: Soft, obese, nondistended, mild diffuse TTP; no hepatosplenomegaly; bowel sounds are present in all four quadrants. EXTREMITIES: No clubbing, cyanosis, or edema. SKIN: Normal; no rash; no jaundice. HEALTH ADVOCATE: No focal deficits; alert and oriented times three. Assessment and Plan Plan ASSESSMENT: - Colonic Mass, CT Abdomen/Pelvis w/ suspected adenocarcinoma of sigmoid colon with associated colitis and obstruction upstream, no evidence of metastatic disease. Never had Colonoscopy. - Bowel obstruction? CT Abdomen as above. Reports constipation x 1 week. S/p fleet enema last night. BM x 1 noted in EHR. - Colitis, CT Abdomen as above. Cipro, Flagyl. WBC normal. PLAN: - Colonoscopy Friday - Obtain consents - NPO - Continue Cipro/Flagyl - General surgery following - Supportive care - Further recommendations to follow based on results of above Patient seen and examined by Dr. Whittington and myself and this note is written on his behalf. Juli Varma Feb 02, 2017 15:10
[2017-02-02 15:32] VITALS: BP 123/59; PULSE 90; RESP 19; TEMP 96.6; O2SAT 93
[2017-02-02 19:07] VITALS: BP 127/56; PULSE 86; RESP 18; TEMP 97.7; O2SAT 94
[2017-02-02] MEDS: RESP: ALBUTEROL 2.5 MG/IPRATROPIUM 0.5 MG NEB (PRN) NEB (20:49)
[2017-02-02] MEDS: CIPROFLOXACIN 400 MG PREMIX 200 ML IV SCH (22:47)
[2017-02-02 23:19] VITALS: BP 110/55; PULSE 78; RESP 18; TEMP 97.9; O2SAT 92
[2017-02-03] MEDS: metroNIDAZOLE 500 MG INJ 100 ML IV SCH ×3 (01:48→18:11)
[2017-02-03 04:10] VITALS: BP 124/60; PULSE 80; RESP 18; TEMP 97.3; O2SAT 94
[2017-02-03 05:39] LABS: AUTOMATED NEUTROPHIL # 3.3 TH/MM3 (1.8-7.7); BASOPHIL % 0.7 % (0.0-2.0); EOSINOPHIL # 0.2 TH/MM3 (0-0.4); EOSINOPHIL % 3.2 % (0.0-4.0); HEMATOCRIT 35.9 % (35.0-46.0); HEMO FLAGS DIFF FINAL; LYMPH % 31.2 % (9.0-44.0); LYMPHOCYTE # 1.9 TH/MM3 (1.0-4.8); MEAN CELL VOLUME 95.2 FL (80.0-100.0); MEAN CORPUSCULAR HEMOGLOBIN 31.6 PG (27.0-34.0); MEAN CORPUSCULAR HGB CONC 33.2 % (32.0-36.0); MONO % 9.3 % (0.0-8.0); NEUT % 55.6 % (16.0-70.0); PLATELET COUNT 171 TH/MM3 (150-450); RED BLOOD COUNT 3.77 MIL/MM3 (4.00-5.30); RED CELL DISTRIBUTION WIDTH 14.6 % (11.6-17.2)
[2017-02-03 06:03] LABS: ANION GAP 6 MEQ/L (5-15); AST (GOT) 19 U/L (15-37); BICARBONATE 29.4 MEQ/L (21.0-32.0); BLOOD UREA NITROGEN 6 MG/DL (7-18); CHLORIDE 107 MEQ/L (98-107); GLOMERULAR FILTRATION RATE 73 ML/MIN (>89); POTASSIUM 3.4 MEQ/L (3.5-5.1); SODIUM (NA) 142 MEQ/L (136-145)
[2017-02-03 06:04] LABS: ALT (GPT) 18 U/L (10-53)
[2017-02-03 06:07] LABS: ALKALINE PHOSPHATASE 70 U/L (45-117); TOTAL BILIRUBIN ADULT 0.5 MG/DL (0.2-1.0)
[2017-02-03] MEDS ORDERED: POVIDONE IODINE 5% (ANTISEPSIS KIT) 4 APPLICATIONS EACH NARE PRN (06:15)
[2017-02-03] MEDS ORDERED: CHLORHEXIDINE GLUCONATE 2 % 1 PACK (2 CLOTHS) TOPICAL PRN (06:15)
[2017-02-03] MEDS ORDERED: LACTATED RINGER'S 1000 ML IV PRN (06:15)
[2017-02-03] MEDS: SODIUM CHLOR 0.9% 1000 ML INJ 1,000 ML IV SCH (07:39)
[2017-02-03 08:00] VITALS: BP 123/62; PULSE 91; RESP 18; TEMP 97.3; O2SAT 92
[2017-02-03] MEDS: SODIUM CHLORIDE 0.9% FLUSH 10 ML FLUSH IV FLUSH SCH ×2 (09:00→21:00)
[2017-02-03] MEDS: DOCUSATE SODIUM 50 MG/SENNA 8.6 MG TAB PO SCH ×2 (09:00→21:05)
[2017-02-03] MEDS ORDERED: RESP: ALBUTEROL 2.5 MG/IPRATROPIUM 0.5 MG NEB (SCH) ONE (10:32)
[2017-02-03] MEDS: CIPROFLOXACIN 400 MG PREMIX 200 ML IV SCH ×2 (11:00→22:58)
--- NOTE | 2017-02-03 11:46 | GIPROC ---
[facility] [address] [facility]. [facility], [address] COLONOSCOPY PROCEDURE REPORT EXAM DATE: 02/03/2017 PATIENT NAME: Ofelia Snell MR #: [id number] BIRTHDATE: 1935 ENDOSCOPIST: Jennifer Denson MD ORDER #: [id number] COAL DIGGER: Roxanne Slater and Kym Marroquin STATUS: inpatient INDICATIONS: The patient is a 81 yr old female here for a colonoscopy due to therapy of for previously diagnosed obstruction PROCEDURE PERFORMED: Colonoscopy with biopsy MEDICATIONS: None and Per Anesthesia. PREP QUALITY: poor PREP TYPE:Other: PREP TYPE:Other: None ESTIMATED BLOOD LOSS: None CONSENT: The patient understands the risks and benefits of the procedure and understands that these risks include, but are not limited to: sedation, allergic reaction, infection, perforation and/or bleeding. Alternative means of evaluation and treatment include, among others: physical exam, x-rays, and/or surgical intervention. The patient elects to proceed with this endoscopic procedure. medical equipment was checked for proper function. Hand hygiene and appropriate measures for infection prevention was taken. After the risks, benefits and alternatives of the procedure were thoroughly explained, Informed consent was verified, confirmed and timeout was successfully executed by the treatment team. A digital exam was performed and revealed no abnormalities of the rectum The Pentax [id number] endoscope was introduced through the anus and advanced to the sigmoid ve. The instrument was then slowly withdrawn as the colon was fully examined. COLON FINDINGS: A completely obstructing tumor/mass was seen in the sigmoid colon. The most likely pathology could not be predicted by colonoscopy. Multiple biopsies were performed using cold forceps. Retroflexion was not performed due to a narrow rectal vault The scope was then completely withdrawn from the patient and the procedure terminated. PROCEDURE WITHDRAWAL TIME:10minutes ADVERSE EVENTS: There were no complications. IMPRESSIONS: 1. Tumor/mass in the sigmoid colon; multiple biopsies were performed using cold forceps 2. Total obstruction of the lumen and poor bowel prep and unable to pass wire/catherter under fluoroscopy , stent could not be passed . RECOMMENDATIONS: Await biopsy results. Surgical consult for colectomy pending biopsies, and will consider re-attempting with better prep after biopsy results. RECALL: As needed Jennifer Denson MD eSigned: Jennifer Denson MD 02/03/2017 11:46 AM cc:
[2017-02-03 12:40] VITALS: BP 117/53; PULSE 86; RESP 18; TEMP 96.4; O2SAT 93
--- NOTE | 2017-02-03 13:49 | HHI.PR ---
Subjective Subjective Notes Colonoscopy performed today showed obstructing sigmoid mass unable to be passed with a wire. She is stable without major complaint. Daughter is at bedside. Objective Vitals/I&O Vital Signs Date Time Temp Pulse Resp B/P (MAP) Pulse Ox O2 Delivery O2 Flow Rate FiO2 02/03/17 11:50 97.6 92 20 106/51 (69) 94 Labs Laboratory Tests Test 02/02/17 19:48 02/03/17 05:11 Carcinoembryonic Antigen 2.2 White Blood Count 6.0 Red Blood Count 3.77 Hemoglobin 11.9 Hematocrit 35.9 Mean Corpuscular Volume 95.2 Mean Corpuscular Hemoglobin 31.6 Mean Corpuscular Hemoglobin Concent 33.2 Red Cell Distribution Width 14.6 Platelet Count 171 Mean Platelet Volume 9.8 Neutrophils (%) (Auto) 55.6 Lymphocytes (%) (Auto) 31.2 Monocytes (%) (Auto) 9.3 Eosinophils (%) (Auto) 3.2 Basophils (%) (Auto) 0.7 Neutrophils # (Auto) 3.3 Lymphocytes # (Auto) 1.9 Monocytes # (Auto) 0.6 Eosinophils # (Auto) 0.2 Basophils # (Auto) 0.0 CBC Comment DIFF FINAL Differential Comment Blood Urea Nitrogen 6 Creatinine 0.76 Random Glucose 80 Total Protein 7.0 Albumin 3.2 Calcium Level 8.2 Alkaline Phosphatase 70 Aspartate Amino Transf (AST/SGOT) 19 Alanine Aminotransferase (ALT/SGPT) 18 Total Bilirubin 0.5 Sodium Level 142 Potassium Level 3.4 Chloride Level 107 Carbon Dioxide Level 29.4 Anion Gap 6 Estimat Glomerular Filtration Rate 73 Date/Time Source Procedure Growth Status 02/02/17 01:00 Urine Clean Catch Urine Culture - Final 50-100,000 CFU/ML MIXED KARLA... Complete Radiology Last Impressions Abdomen/Pelvis CT 02/01/17 3730 Signed Impressions: Service Date/Time: Wednesday, February 01, 2017 23:56 - CONCLUSION: 1. 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 No evidence of metastatic disease. 2. 1 cm hypodensity of the left hepatic lobe is most likely a cyst. Francis Zafar MD Chest X-Ray 02/01/17 2153 Signed Impressions: Service Date/Time: Wednesday, February 01, 2017 22:42 - CONCLUSION: Very mild bibasilar atelectasis and borderline cardiomegaly. Francis Zafar MD Abdomen X-Ray 02/01/17 0000 Signed Impressions: Service Date/Time: Wednesday, February 01, 2017 22:43 - CONCLUSION: Suspected colitis. Nonobstructive pattern. Francis Zafar MD Narrative Exam NAD, comfortable in bed Abd: soft, distended Pulm: kallie wheezing and rhonchi A/P Assessment and Plan 81 yo F with obstructing sigmoid mass, likely cancer but biopsies pending. She is wheezing with ? bronchitis or COPD excacerbation. Recommend she remain NPO. I am leaving town tomorrow and my colleague Dr. Oneal surgical oncology will assume care of Ms. Snell. He will see her today for further surgical planning. Case discussed in detail with him. This was all discussed in detail with patient and her daughter. Antonio Caceres MD Feb 03, 2017 13:49
[2017-02-03 16:00] VITALS: BP 116/53; PULSE 72; RESP 18; TEMP 97.7; O2SAT 92
--- NOTE | 2017-02-03 16:15 | HHI.PR ---
Subjective Remarks The patient was resting comfortably. She said she tolerated the colonoscopy. She said her daughter talked with the surgeon. She had no acute concerns at this time. She said she was hungry. Objective Vitals Vital Signs Date Time Temp Pulse Resp B/P (MAP) Pulse Ox O2 Delivery O2 Flow Rate FiO2 02/03/17 12:40 96.4 86 18 117/53 (74) 93 02/03/17 11:50 97.6 92 20 106/51 (69) 94 02/03/17 08:00 97.3 91 18 123/62 (82) 92 02/03/17 04:10 97.3 80 18 124/60 (81) 94 02/02/17 23:19 97.9 78 18 110/55 (73) 92 02/02/17 19:07 97.7 86 18 127/56 (79) 94 I/O 02/02/17 02/02/17 02/02/17 02/03/17 02/03/17 02/03/17 07:00 15:00 23:00 07:00 15:00 23:00 Intake Total 200 ml 0 ml 1000 ml 1552 ml 300 ml Balance 200 ml 0 ml 1000 ml 1552 ml 300 ml Intake Oral 0 ml 0 ml 0 ml 0 ml IV Total 200 ml 1000 ml 1552 ml Other 300 ml # Voids 1 5 5 4 # Bowel Movements 1 0 0 Result Diagram: 02/03/17 0511 02/03/17 0511 Imaging Last Impressions Abdomen/Pelvis CT 02/01/172256 Signed Impressions: Service Date/Time: Wednesday, February 01, 2017 23:56 - CONCLUSION: 1. 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 No evidence of metastatic disease. 2. 1 cm hypodensity of the left hepatic lobe is most likely a cyst. Francis Zafar MD Chest X-Ray 02/01/173 Signed Impressions: Service Date/Time: Wednesday, February 01, 2017 22:42 - CONCLUSION: Very mild bibasilar atelectasis and borderline cardiomegaly. Francis Zafar MD Abdomen X-Ray 02/01/17 0000 Signed Impressions: Service Date/Time: Wednesday, February 01, 2017 22:43 - CONCLUSION: Suspected colitis. Nonobstructive pattern. Francis Zafar MD Objective Remarks GENERAL: NAD SKIN: Warm and dry. HEAD: Normocephalic. EYES: No scleral icterus. No injection or drainage. NECK: Supple, trachea midline. No JVD or lymphadenopathy. CARDIOVASCULAR: Regular rate and rhythm without murmurs, gallops, or rubs. RESPIRATORY: Breath sounds equal bilaterally. No accessory muscle use. GASTROINTESTINAL: Abdomen soft, non-tender, nondistended. hypoactive BS. MUSCULOSKELETAL: No cyanosis, or edema. BACK: Nontender without obvious deformity. No CVA tenderness. PSYCH: Mood and affect appropriate. Procedures Colonoscopy Medications and IVs Current Medications Medications (Trade) Dose Ordered Sig/Lizy Route Start Time Stop Time Status Last Admin Metronidazole 100 ml @ 100 mls/hr Q8H IV 02/02/17 10:00 02/03/17 01:48 Ciprofloxacin/ Dextrose 200 ml @ 200 mls/hr Q12H IV 02/02/17 23:00 02/02/17 22:47 Sodium Chloride 1,000 ml @ 100 mls/hr Q10H IV 02/02/17 01:39 02/02/17 22:54 (NS Flush) 2 ml UNSCH PRN IV FLUSH 02/02/17 01:45 (NS Flush) 2 ml BID IV FLUSH 02/02/17 09:00 02/02/17 09:00 (Zofran Inj) 4 mg Q6H PRN IVP 02/02/17 01:45 (Tylenol) 650 mg Q6H PRN PO 02/02/17 01:45 (Sulma-Colace) 1 tab BID PO 02/02/17 09:00 02/02/17 21:51 (Milk Of Magnesia Liq) 30 ml Q12H PRN PO 02/02/17 01:45 (Senokot) 17.2 mg Q12H PRN PO 02/02/17 01:45 (Dulcolax Supp) 10 mg DAILY PRN RECTAL 02/02/17 01:45 (Lactulose Liq) 30 ml DAILY PRN PO 02/02/17 01:45 (Morphine Inj) 2 mg Q3H PRN IV 02/02/17 02:15 (Morphine Inj) 2 mg Q3H PRN IV 02/02/17 02:15 (Duoneb Neb) 1 ampule Q4HR NEB PRN NEB 02/02/17 02:30 02/02/17 20:49 Lactated Ringer's 1,000 ml @ 30 mls/hr Q24H PRN IV 02/03/17 06:15 02/06/17 06:14 02/03/17 09:38 (Betadine 5% Antisepsis Kit) 1 applic HYDRATE THICKENER OPERATOR PRN EACH NARE 02/03/17 06:15 02/06/17 06:14 (Chlorhexidine 2% Cloth) 3 pack HYDRATE THICKENER OPERATOR PRN TOPICAL 02/03/17 06:15 02/06/17 06:14 A/P Problem List: (1) Colitis ICD Code: K52.9 - Noninfective gastroenteritis and colitis, unspecified (2) Bowel obstruction ICD Code: K56.609 - Unspecified intestinal obstruction, unspecified as to partial versus complete obstruction (3) Colonic mass ICD Code: K63.9 - Disease of intestine, unspecified (4) Hypokalemia ICD Code: E87.6 - Hypokalemia Assessment and Plan Colitis CT Abd/Pelvis w/ mild colitis. Afebrile. WBC normal. S/p Cipro/Flagyl in ER, continue w/ IV Abx. Bowel Obstruction H/o constipation for approx 1wk, +flatulence, CT Abd/Pelvis w/ suspected colon mass and obstruction. Colonoscopy with mass, s/p biopsies. - NPO, IVF. - pending Gen Sx for further eval. - Analgesics as needed, caution w/ obstruction. 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 - Gen Sx for eval pending, likely Oncology consult. - follow pathology. Hypokalemia - IVFs with KCl. - Replace electrolytes and monitor DVT Prophylaxis: SCD/Teds. Problem Qualifiers (1) Bowel obstruction: Qualified Codes: K56.609 - Unspecified intestinal obstruction, unspecified as to partial versus complete obstruction Dwain Tolbert DO Feb 03, 2017 16:15
--- NOTE | 2017-02-03 16:34 | EKG ---
Date Performed: 02/03/2017 Time Performed: 06:17:06 PTAGE: 81 years EKG: Sinus rhythm . Left axis deviation IV conduction defect Extensive ST elevation suggests pericarditis Lateral ST-T changes are nonspecific Since previous tracing, no significant change noted Abnormal ECG PREVIOUS TRACING : 03/14/2012 07.22.00 DOCTOR: Denis Baez Interpretating Date/Time 02/03/2017 16:33:05
[2017-02-03 17:46] VITALS: O2SAT 93
[2017-02-03] MEDS: POTASSIUM CHLORIDE INJ 30 MEQ in DEXT 5%-NACL 0.9% 1000 ML INJ 1,000 ML IV SCH (18:11)
--- NOTE | 2017-02-03 20:31 | HHI.PR ---
Subjective Subjective Notes patient feels fine currently, wants to eat Objective Vitals/I&O Vital Signs Date Time Temp Pulse Resp B/P (MAP) Pulse Ox O2 Delivery O2 Flow Rate FiO2 02/03/17 17:46 93 Nasal Cannula 2.00 02/03/17 16:00 97.7 72 18 116/53 (74) Labs Laboratory Tests Test 02/03/17 05:11 White Blood Count 6.0 Red Blood Count 3.77 Hemoglobin 11.9 Hematocrit 35.9 Mean Corpuscular Volume 95.2 Mean Corpuscular Hemoglobin 31.6 Mean Corpuscular Hemoglobin Concent 33.2 Red Cell Distribution Width 14.6 Platelet Count 171 Mean Platelet Volume 9.8 Neutrophils (%) (Auto) 55.6 Lymphocytes (%) (Auto) 31.2 Monocytes (%) (Auto) 9.3 Eosinophils (%) (Auto) 3.2 Basophils (%) (Auto) 0.7 Neutrophils # (Auto) 3.3 Lymphocytes # (Auto) 1.9 Monocytes # (Auto) 0.6 Eosinophils # (Auto) 0.2 Basophils # (Auto) 0.0 CBC Comment DIFF FINAL Differential Comment Blood Urea Nitrogen 6 Creatinine 0.76 Random Glucose 80 Total Protein 7.0 Albumin 3.2 Calcium Level 8.2 Alkaline Phosphatase 70 Aspartate Amino Transf (AST/SGOT) 19 Alanine Aminotransferase (ALT/SGPT) 18 Total Bilirubin 0.5 Sodium Level 142 Potassium Level 3.4 Chloride Level 107 Carbon Dioxide Level 29.4 Anion Gap 6 Estimat Glomerular Filtration Rate 73 Date/Time Source Procedure Growth Status 02/02/17 01:00 Urine Clean Catch Urine Culture - Final 50-100,000 CFU/ML MIXED KARLA... Complete Radiology Last Impressions Abdomen/Pelvis CT 02/01/172256 Signed Impressions: Service Date/Time: Wednesday, February 01, 2017 23:56 - CONCLUSION: 1. 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 No evidence of metastatic disease. 2. 1 cm hypodensity of the left hepatic lobe is most likely a cyst. Francis Zafar MD Chest X-Ray 02/01/173 Signed Impressions: Service Date/Time: Wednesday, February 01, 2017 22:42 - CONCLUSION: Very mild bibasilar atelectasis and borderline cardiomegaly. Francis Zafar MD Abdomen X-Ray 02/01/17 0000 Signed Impressions: Service Date/Time: Wednesday, February 01, 2017 22:43 - CONCLUSION: Suspected colitis. Nonobstructive pattern. Francis Zafar MD Cardiovascular: Regular Lungs: Clear, Upper airway course sound Abdomen: Non-tender Extremities: No edema, Perfused A/P Assessment and Plan 81yo female with high grade partial distal colon obstruction, likely malignant, stable. c-scople likely cancer, biopsy pending. long d/w patient and granddaughter, will need surgery urgently. will do lap vs open colon resection tomorrow, will need colostomy as reanastomosis is contraindicated in obstruction. They agree with surgery, r/b/a discussed. posted for 4PM. NPO. Ricardo Oneal MD Feb 03, 2017 20:31
[2017-02-03 21:33] VITALS: BP 137/77; PULSE 93; RESP 18; TEMP 97.8; O2SAT 93
[2017-02-03] MEDS: RESP: ALBUTEROL 2.5 MG/IPRATROPIUM 0.5 MG NEB (PRN) NEB (22:00)
[2017-02-04 00:37] VITALS: BP 123/61; PULSE 97; RESP 18; TEMP 98; O2SAT 93
[2017-02-04] MEDS: metroNIDAZOLE 500 MG INJ 100 ML IV SCH ×3 (02:02→18:57)
[2017-02-04] MEDS: POTASSIUM CHLORIDE INJ 30 MEQ in DEXT 5%-NACL 0.9% 1000 ML INJ 1,000 ML IV SCH ×2 (02:24→12:33)
[2017-02-04 08:00] VITALS: BP 121/69; PULSE 87; RESP 16; TEMP 98.5; O2SAT 92
[2017-02-04] MEDS: SODIUM CHLORIDE 0.9% FLUSH 10 ML FLUSH IV FLUSH SCH ×2 (09:00→21:00)
[2017-02-04] MEDS: DOCUSATE SODIUM 50 MG/SENNA 8.6 MG TAB PO SCH ×2 (09:00→21:00)
[2017-02-04 09:46] LABS: HEMATOCRIT 32.6 % (35.0-46.0); MEAN CELL VOLUME 94.1 FL (80.0-100.0); MEAN CORPUSCULAR HEMOGLOBIN 31.7 PG (27.0-34.0); MEAN CORPUSCULAR HGB CONC 33.7 % (32.0-36.0); PLATELET COUNT 163 TH/MM3 (150-450); RED BLOOD COUNT 3.47 MIL/MM3 (4.00-5.30); RED CELL DISTRIBUTION WIDTH 14.4 % (11.6-17.2); REVIEW FLAG FINAL; WHITE BLOOD COUNT 8.1 TH/MM3 (4.0-11.0)
[2017-02-04 10:07] LABS: BICARBONATE 27.4 MEQ/L (21.0-32.0); MAGNESIUM 1.9 MG/DL (1.5-2.5); POTASSIUM 3.4 MEQ/L (3.5-5.1)
[2017-02-04] MEDS: CIPROFLOXACIN 400 MG PREMIX 200 ML IV SCH ×2 (11:00→23:00)
[2017-02-04 12:00] VITALS: BP 118/70; PULSE 93; RESP 16; TEMP 97.5; O2SAT 93
[2017-02-04] MEDS: RESP: ALBUTEROL 2.5 MG/IPRATROPIUM 0.5 MG NEB (PRN) NEB (12:26)
[2017-02-04 12:28] VITALS: O2SAT 92
[2017-02-04 16:00] VITALS: BP 129/78; PULSE 97; RESP 16; TEMP 98; O2SAT 94
--- NOTE | 2017-02-04 16:18 | HHI.GIFU ---
Subjective Remarks resting in the bed tolerating liquids, no nausea/vomiting (Eneida Arciniega) Objective Vitals I&O Vital Signs Date Time Temp Pulse Resp B/P (MAP) Pulse Ox O2 Delivery O2 Flow Rate FiO2 02/04/17 12:28 92 02/04/17 12:00 97.5 93 16 118/70 (86) 93 02/04/17 08:00 98.5 87 16 121/69 (86) 92 02/04/17 00:37 98.0 97 18 123/61 (81) 93 02/03/17 21:33 97.8 93 18 137/77 (97) 93 02/03/17 17:46 93 Nasal Cannula 2.00 I/O 02/03/17 02/03/17 02/03/17 02/04/17 02/04/17 02/04/17 07:00 15:00 23:00 07:00 15:00 23:00 Intake Total 1552 ml 300 ml 0 ml 200 ml Balance 1552 ml 300 ml 0 ml 200 ml Intake Oral 0 ml 0 ml 0 ml 0 ml IV Total 1552 ml 200 ml Other 300 ml # Voids 4 3 1 1 # Bowel Movements 0 0 0 Laboratory Laboratory Tests Test 02/04/17 09:14 White Blood Count 8.1 Red Blood Count 3.47 Hemoglobin 11.0 Hematocrit 32.6 Mean Corpuscular Volume 94.1 Mean Corpuscular Hemoglobin 31.7 Mean Corpuscular Hemoglobin Concent 33.7 Red Cell Distribution Width 14.4 Platelet Count 163 Mean Platelet Volume 9.8 Blood Urea Nitrogen 5 Creatinine 0.57 Random Glucose 105 Calcium Level 8.4 Magnesium Level 1.9 Sodium Level 141 Potassium Level 3.4 Chloride Level 105 Carbon Dioxide Level 27.4 Anion Gap 9 Estimat Glomerular Filtration Rate 102 Date/Time Source Procedure Growth Status 02/02/17 01:00 Urine Clean Catch Urine Culture - Final 50-100,000 CFU/ML MIXED KARLA... Complete Imaging Last Impressions Abdomen/Pelvis CT 02/01/17 5605 Signed Impressions: Service Date/Time: Wednesday, February 01, 2017 23:56 - CONCLUSION: 1. 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 No evidence of metastatic disease. 2. 1 cm hypodensity of the left hepatic lobe is most likely a cyst. Francis Zafar MD Chest X-Ray 02/01/17 2153 Signed Impressions: Service Date/Time: Wednesday, February 01, 2017 22:42 - CONCLUSION: Very mild bibasilar atelectasis and borderline cardiomegaly. Francis Zafar MD Abdomen X-Ray 02/01/17 0000 Signed Impressions: Service Date/Time: Wednesday, February 01, 2017 22:43 - CONCLUSION: Suspected colitis. Nonobstructive pattern. Francis Zafar MD Physical Exam HEENT: Pupils round and reactive to light; normocephalic; atraumatic; no jaundice. NECK: Neck is supple, no JVD, obese CHEST: Chest is clear without rhonchi CARDIAC: Regular rate and rhythm ABDOMEN: obese, Soft, nondistended, nontender; no hepatosplenomegaly; bowel sounds are present in all four quadrants. EXTREMITIES: No clubbing, cyanosis, or edema. SKIN: Normal; no rash; no jaundice. FILM SPOOLER: alert and oriented times three. (Eneida Arciniega) Assessment and Plan Plan ASSESSMENT: - Colonic Mass, CT Abdomen/Pelvis w/ suspected adenocarcinoma of sigmoid colon with associated colitis and obstruction upstream, no evidence of metastatic disease. Colonoscopy done, -, mass seen in sigmoid colon. - PLAN: - General surgery plan for surgery - Supportive care - Further recommendations to follow based on results of above GI sign off, call if needed. Patient seen and examined by Dr. Denson and myself and this note is written on his behalf. (Eneida Arciniega) Physician Comments Seen and examined, plan as above. Will S/O for now, please notify us if needed. (Jennifer Denson MD) Eneida Arciniega Feb 04, 2017 16:17 Jennifer Denson MD Feb 05, 2017 03:33
--- NOTE | 2017-02-04 16:46 | HHI.PR ---
Subjective Remarks The patient was resting in bed comfortably. She had no acute complaints. She was tolerating a clear liquid diet. Discussed with family at the bedside. Also discussed with nursing and GI. Objective Vitals Vital Signs Date Time Temp Pulse Resp B/P (MAP) Pulse Ox O2 Delivery O2 Flow Rate FiO2 02/04/17 12:28 92 02/04/17 12:00 97.5 93 16 118/70 (86) 93 02/04/17 08:00 98.5 87 16 121/69 (86) 92 02/04/17 00:37 98.0 97 18 123/61 (81) 93 02/03/17 21:33 97.8 93 18 137/77 (97) 93 02/03/17 17:46 93 Nasal Cannula 2.00 I/O 02/03/17 02/03/17 02/03/17 02/04/17 02/04/17 02/04/17 07:00 15:00 23:00 07:00 15:00 23:00 Intake Total 1552 ml 300 ml 0 ml 200 ml Balance 1552 ml 300 ml 0 ml 200 ml Intake Oral 0 ml 0 ml 0 ml 0 ml IV Total 1552 ml 200 ml Other 300 ml # Voids 4 3 1 1 # Bowel Movements 0 0 0 Result Diagram: 02/04/17 0914 02/04/1714 Imaging Last Impressions Abdomen/Pelvis CT 02/01/172256 Signed Impressions: Service Date/Time: Wednesday, February 01, 2017 23:56 - CONCLUSION: 1. 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 No evidence of metastatic disease. 2. 1 cm hypodensity of the left hepatic lobe is most likely a cyst. Francis Zafar MD Chest X-Ray 02/01/172152 Signed Impressions: Service Date/Time: Wednesday, February 01, 2017 22:42 - CONCLUSION: Very mild bibasilar atelectasis and borderline cardiomegaly. Francis Zafar MD Abdomen X-Ray 02/01/17 0000 Signed Impressions: Service Date/Time: Wednesday, February 01, 2017 22:43 - CONCLUSION: Suspected colitis. Nonobstructive pattern. Francis Zafar MD Objective Remarks GENERAL: NAD SKIN: Warm and dry. HEAD: Normocephalic. EYES: No scleral icterus. No injection or drainage. NECK: Supple, trachea midline. No JVD or lymphadenopathy. CARDIOVASCULAR: Regular rate and rhythm without murmurs, gallops, or rubs. RESPIRATORY: Breath sounds equal bilaterally. No accessory muscle use. GASTROINTESTINAL: Abdomen soft, non-tender, nondistended. hypoactive BS. MUSCULOSKELETAL: No cyanosis, or edema. BACK: Nontender without obvious deformity. No CVA tenderness. PSYCH: Mood and affect appropriate. Procedures Colonoscopy Medications and IVs Current Medications Medications (Trade) Dose Ordered Sig/Lizy Route Start Time Stop Time Status Last Admin Metronidazole 100 ml @ 100 mls/hr Q8H IV 02/02/17 10:00 02/04/17 10:01 Ciprofloxacin/ Dextrose 200 ml @ 200 mls/hr Q12H IV 02/02/17 23:00 02/04/17 11:00 (NS Flush) 2 ml UNSCH PRN IV FLUSH 02/02/17 01:45 (NS Flush) 2 ml BID IV FLUSH 02/02/17 09:00 02/02/17 09:00 (Zofran Inj) 4 mg Q6H PRN IVP 02/02/17 01:45 (Tylenol) 650 mg Q6H PRN PO 02/02/17 01:45 (Sulma-Colace) 1 tab BID PO 02/02/17 09:00 02/03/17 21:05 (Milk Of Magnesia Liq) 30 ml Q12H PRN PO 02/02/17 01:45 (Senokot) 17.2 mg Q12H PRN PO 02/02/17 01:45 (Dulcolax Supp) 10 mg DAILY PRN RECTAL 02/02/17 01:45 (Lactulose Liq) 30 ml DAILY PRN PO 02/02/17 01:45 (Morphine Inj) 2 mg Q3H PRN IV 02/02/17 02:15 (Morphine Inj) 2 mg Q3H PRN IV 02/02/17 02:15 (Duoneb Neb) 1 ampule Q4HR NEB PRN NEB 02/02/17 02:30 02/04/17 12:26 Lactated Ringer's 1,000 ml @ 30 mls/hr Q24H PRN IV 02/03/17 06:15 02/06/17 06:14 02/03/17 09:38 (Betadine 5% Antisepsis Kit) 1 applic GARMENT FINISHER PRN EACH NARE 02/03/17 06:15 02/06/17 06:14 (Chlorhexidine 2% Cloth) 3 pack GARMENT FINISHER PRN TOPICAL 02/03/17 06:15 02/06/17 06:14 Potassium Chloride 30 meq/ Dextrose/Sodium Chloride 1,015 ml @ 100 mls/hr Q10H9M IV 02/03/17 16:15 02/03/17 18:11 A/P Problem List: (1) Colitis ICD Code: K52.9 - Noninfective gastroenteritis and colitis, unspecified (2) Bowel obstruction ICD Code: K56.609 - Unspecified intestinal obstruction, unspecified as to partial versus complete obstruction (3) Colonic mass ICD Code: K63.9 - Disease of intestine, unspecified (4) Hypokalemia ICD Code: E87.6 - Hypokalemia Assessment and Plan Colitis CT Abd/Pelvis w/ mild colitis. Afebrile. WBC normal. S/p Cipro/Flagyl in ER. - continue w/ IV Abx. Bowel Obstruction H/o constipation for approx 1wk, +flatulence, CT Abd/Pelvis w/ suspected colon mass and obstruction. Colonoscopy with mass, s/p biopsies. Surgical consult appreciated. - Clear liquids, IV fluids.. - pending surgery per general surgery. - Analgesics as needed, caution w/ obstruction. 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 - Gen Sx planning on surgery. - follow pathology. Hypokalemia - IVFs with KCl. - Replace electrolytes and monitor DVT Prophylaxis: SCD/Teds. Discharge Planning Awaiting surgery Problem Qualifiers (1) Bowel obstruction: Qualified Codes: K56.609 - Unspecified intestinal obstruction, unspecified as to partial versus complete obstruction Dwain Tolbert DO Feb 04, 2017 16:46
--- NOTE | 2017-02-04 17:33 | HHI.PR ---
cc: Ricardo Oneal MD Subjective Subjective Notes Was scheduled for OR today at 4PM but given clear liquid tray daughter at bedside Objective Vitals/I&O Vital Signs Date Time Temp Pulse Resp B/P (MAP) Pulse Ox O2 Delivery O2 Flow Rate FiO2 02/04/17 12:28 92 02/04/17 12:00 97.5 93 16 118/70 (86) 02/03/17 17:46 Nasal Cannula 2.00 Labs Laboratory Tests Test 02/04/17 09:14 White Blood Count 8.1 Red Blood Count 3.47 Hemoglobin 11.0 Hematocrit 32.6 Mean Corpuscular Volume 94.1 Mean Corpuscular Hemoglobin 31.7 Mean Corpuscular Hemoglobin Concent 33.7 Red Cell Distribution Width 14.4 Platelet Count 163 Mean Platelet Volume 9.8 Blood Urea Nitrogen 5 Creatinine 0.57 Random Glucose 105 Calcium Level 8.4 Magnesium Level 1.9 Sodium Level 141 Potassium Level 3.4 Chloride Level 105 Carbon Dioxide Level 27.4 Anion Gap 9 Estimat Glomerular Filtration Rate 102 Date/Time Source Procedure Growth Status 02/02/17 01:00 Urine Clean Catch Urine Culture - Final 50-100,000 CFU/ML MIXED KARLA... Complete Radiology Last Impressions Abdomen/Pelvis CT 02/01/177 Signed Impressions: Service Date/Time: Wednesday, February 01, 2017 23:56 - CONCLUSION: 1. 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 No evidence of metastatic disease. 2. 1 cm hypodensity of the left hepatic lobe is most likely a cyst. Francis Zafar MD Chest X-Ray 02/01/17 2153 Signed Impressions: Service Date/Time: Wednesday, February 01, 2017 22:42 - CONCLUSION: Very mild bibasilar atelectasis and borderline cardiomegaly. Francis Zafar MD Abdomen X-Ray 02/01/17 0000 Signed Impressions: Service Date/Time: Wednesday, February 01, 2017 22:43 - CONCLUSION: Suspected colitis. Nonobstructive pattern. Francis Zafar MD Cardiovascular: Regular Lungs: Clear Abdomen: Other (soft ) Extremities: No edema A/P Assessment and Plan 81 year old female with high grade distal colon obstruction, likely malignant, -Patient moved to OR schedule for tomorrow -Consents on chart -Will need to be NPO -Awaiting echo -Discussed with daughter and NM Katelyn Merino Feb 04, 2017 17:33
--- NOTE | 2017-02-04 17:42 | ECHRPT ---
Indication: EF CHF CONCLUSIONS Moderately dilated left ventricle. The left ventricular systolic function is severely reduced with an estimated ejection fraction in th e range of 30-35%. There is global left ventricular dysfunction. Ntvrxnjt-[id number] mitral valve regurgitation. There is mild tricuspid valve regurgitation. There is estimated alkmgpbj-wr-ptrpfe pulmonary hypertension present ( 65 mmHg). BP: 123 / 62 HR: 91 Rhythm: MEASUREMENTS (Male / Female) Normal Values Technical Quality:Good 2D ECHO LV Diastolic Diameter PLAX 6.5 cm 4.2 - 5.9 / 3.9 - 5.3 cm LV Systolic Diameter PLAX 5.7 cm IVS Diastolic Thickness 1.3 cm 0.6 - 1.0 / 0.6 - 0.9 cm LVPW Diastolic Thickness 0.8 cm 0.6 - 1.0 / 0.6 - 0.9 cm LV Relative Wall Thickness 0.3 RV Internal Dim ED PLAX 2.4 cm LA Systolic Diameter LX 4.5 cm 3.0 - 4.0 / 2.7 - 3.8 cm DOPPLER MR Peak Velocity 540.0 cm/s MR Peak Gradient 116.6 mmHg Mitral E Point Velocity 96.3 cm/s Mitral A Point Velocity 102.0 cm/s Mitral E to A Ratio 0.9 TR Peak Velocity 353.0 cm/s TR Peak Gradient 49.8 mmHg Right Atrial Pressure 15.0 mmHg Pulmonary Artery Systolic Pressu 64.8 mmHg Right Ventricular Systolic Press 64.8 mmHg FINDINGS LEFT VENTRICLE Moderately dilated left ventricle. Wall thickness is normal. The left ventricular systolic function is severely reduced with an estimated ejection fraction in th e range of 30-35%. There is global left ventricular dysfunction. RIGHT VENTRICLE The right ventricular size is normal. The right ventricular systoilc function is mildly decreased. LEFT ATRIUM The left atrial size is mildly dilated. RIGHT ATRIUM The right atrial size is normal. ATRIAL SEPTUM Normal atrial septal thickness. AORTA The aortic root and proximal ascending aorta are normal in size on limited imaging. MITRAL VALVE Structurally normal mitral valve. Lbjcuoew-gm-uljjwr mitral valve regurgitation. The mitral valve regurgitation jet is directed centrally due to poor leaflet coaptation. AORTIC VALVE Trileaflet aortic valve. No aortic valve stenosis or regurgitation. TRICUSPID VALVE Structurally normal tricuspid valve. There is mild tricuspid valve regurgitation. There is estimated eipliqrv-zr-scbvlm pulmonary hypertension present ( 65 mmHg). PULMONARY VALVE No pulmonary valve regurgitation or stenosis. VESSELS The inferior vena cava is normal in size. PERICARDIUM No pericardial effusion. Shay Arce DO (Electronically Signed) Final Date:04 February 2017 17:41
[2017-02-04 20:10] VITALS: BP 117/59; PULSE 98; RESP 17; TEMP 97.2; O2SAT 94
[2017-02-05 00:10] VITALS: BP 121/62; PULSE 95; RESP 17; TEMP 97.5; O2SAT 95
[2017-02-05] MEDS: ONDANSETRON HCL 4 MG/2 ML VIAL IVP PRN (01:48)
[2017-02-05] MEDS: metroNIDAZOLE 500 MG INJ 100 ML IV SCH ×3 (01:49→17:53)
[2017-02-05] MEDS: POTASSIUM CHLORIDE INJ 30 MEQ in DEXT 5%-NACL 0.9% 1000 ML INJ 1,000 ML IV SCH (02:00)
[2017-02-05 08:00] VITALS: BP 108/61; PULSE 102; RESP 17; TEMP 99.4; O2SAT 93
[2017-02-05] MEDS: SODIUM CHLORIDE 0.9% FLUSH 10 ML FLUSH IV FLUSH SCH ×2 (08:18→22:45)
[2017-02-05] MEDS: DOCUSATE SODIUM 50 MG/SENNA 8.6 MG TAB PO SCH ×2 (08:19→21:00)
[2017-02-05 08:42] LABS: BICARBONATE 30.3 MEQ/L (21.0-32.0); MAGNESIUM 1.9 MG/DL (1.5-2.5)
[2017-02-05 08:43] LABS: POTASSIUM 3.9 MEQ/L (3.5-5.1)
[2017-02-05] MEDS: CIPROFLOXACIN 400 MG PREMIX 200 ML IV SCH ×2 (10:39→23:37)
--- NOTE | 2017-02-05 11:02 | HHI.PR ---
Subjective Remarks The patient was resting comfortably in bed. She did endorse some mild shortness of breath. Discussed with nursing at the bedside who reported that the patient's oxygen saturation dropped into the 80s on room air. No other acute concerns. Objective Vitals Vital Signs Date Time Temp Pulse Resp B/P (MAP) Pulse Ox O2 Delivery O2 Flow Rate FiO2 02/05/17 08:19 Nasal Cannula 2.00 02/05/17 08:00 99.4 102 17 108/61 (77) 93 02/05/17 07:56 Room Air 02/05/17 00:10 97.5 95 17 121/62 (81) 95 02/04/17 20:10 97.2 98 17 117/59 (78) 94 02/04/17 16:00 98.0 97 16 129/78 (95) 94 02/04/17 12:28 92 02/04/17 12:00 97.5 93 16 118/70 (86) 93 I/O 02/04/17 02/04/17 02/04/17 02/05/17 02/05/17 02/05/17 07:00 15:00 23:00 07:00 15:00 23:00 Intake Total 200 ml 600 ml 200 ml Balance 200 ml 600 ml 200 ml Intake Oral 0 ml 600 ml 0 ml IV Total 200 ml 200 ml # Voids 1 4 2 # Bowel Movements 0 0 0 Result Diagram: 02/04/17 0914 02/05/17 0730 Imaging Last Impressions Abdomen/Pelvis CT 02/01/177 Signed Impressions: Service Date/Time: Wednesday, February 01, 2017 23:56 - CONCLUSION: 1. 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 No evidence of metastatic disease. 2. 1 cm hypodensity of the left hepatic lobe is most likely a cyst. Francis Zafar MD Chest X-Ray 02/01/173 Signed Impressions: Service Date/Time: Wednesday, February 01, 2017 22:42 - CONCLUSION: Very mild bibasilar atelectasis and borderline cardiomegaly. Francis Zafar MD Abdomen X-Ray 02/01/17 0000 Signed Impressions: Service Date/Time: Wednesday, February 01, 2017 22:43 - CONCLUSION: Suspected colitis. Nonobstructive pattern. Francis Zafar MD Objective Remarks GENERAL: NAD SKIN: Warm and dry. HEAD: Normocephalic. EYES: No scleral icterus. No injection or drainage. NECK: Supple, trachea midline. No JVD or lymphadenopathy. CARDIOVASCULAR: Regular rate and rhythm without murmurs, gallops, or rubs. RESPIRATORY: Bilateral wheezing appreciated. GASTROINTESTINAL: Abdomen soft, non-tender, nondistended. hypoactive BS. MUSCULOSKELETAL: 1+ LE edema. BACK: Nontender without obvious deformity. No CVA tenderness. PSYCH: Mood and affect appropriate. Procedures Colonoscopy Medications and IVs Current Medications Medications (Trade) Dose Ordered Sig/Lizy Route Start Time Stop Time Status Last Admin Metronidazole 100 ml @ 100 mls/hr Q8H IV 02/02/17 10:00 02/05/17 10:40 Ciprofloxacin/ Dextrose 200 ml @ 200 mls/hr Q12H IV 02/02/17 23:00 02/05/17 10:39 (NS Flush) 2 ml UNSCH PRN IV FLUSH 02/02/17 01:45 (NS Flush) 2 ml BID IV FLUSH 02/02/17 09:00 02/02/17 09:00 (Zofran Inj) 4 mg Q6H PRN IVP 02/02/17 01:45 02/05/17 01:48 (Tylenol) 650 mg Q6H PRN PO 02/02/17 01:45 02/05/17 08:16 (Sulma-Colace) 1 tab BID PO 02/02/17 09:00 02/03/17 21:05 (Milk Of Magnesia Liq) 30 ml Q12H PRN PO 02/02/17 01:45 (Senokot) 17.2 mg Q12H PRN PO 02/02/17 01:45 (Dulcolax Supp) 10 mg DAILY PRN RECTAL 02/02/17 01:45 (Lactulose Liq) 30 ml DAILY PRN PO 02/02/17 01:45 (Morphine Inj) 2 mg Q3H PRN IV 02/02/17 02:15 (Morphine Inj) 2 mg Q3H PRN IV 02/02/17 02:15 (Duoneb Neb) 1 ampule Q4HR NEB PRN NEB 02/02/17 02:30 02/04/17 12:26 Lactated Ringer's 1,000 ml @ 30 mls/hr Q24H PRN IV 02/03/17 06:15 02/06/17 06:14 02/03/17 09:38 (Betadine 5% Antisepsis Kit) 1 applic CANDY COOKER HELPER PRN EACH NARE 02/03/17 06:15 02/06/17 06:14 (Chlorhexidine 2% Cloth) 3 pack CANDY COOKER HELPER PRN TOPICAL 02/03/17 06:15 02/06/17 06:14 Potassium Chloride 30 meq/ Dextrose/Sodium Chloride 1,015 ml @ 100 mls/hr Q10H9M IV 02/03/17 16:15 02/05/17 02:00 (Duoneb Neb) 1 ampule ONCE ONCE NEB 02/05/17 11:00 02/05/17 11:01 UNV A/P Problem List: (1) Colitis ICD Code: K52.9 - Noninfective gastroenteritis and colitis, unspecified (2) Bowel obstruction ICD Code: K56.609 - Unspecified intestinal obstruction, unspecified as to partial versus complete obstruction (3) Colonic mass ICD Code: K63.9 - Disease of intestine, unspecified (4) Hypokalemia ICD Code: E87.6 - Hypokalemia Assessment and Plan Colitis CT Abd/Pelvis w/ mild colitis. Afebrile. WBC normal. S/p Cipro/Flagyl in ER. - continue w/ IV Abx. Bowel Obstruction H/o constipation for approx 1wk, +flatulence, CT Abd/Pelvis w/ suspected colon mass and obstruction. Colonoscopy with mass, s/p biopsies. Surgical consult appreciated. - keep the pt NPO. D/c IVFs s/t CHF. - pending surgery per general surgery if respiratory status improves. - Analgesics as needed, caution w/ obstruction. 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 - Gen Sx planning on surgery. - follow pathology. Acute on chronic systolic CHF Echo with EF 30-35%. Currently on 2L NC. Exacerbated by IVFs received for above conditions. - Lasix 20 mg IV x 1. - CXR pending. - resume Lopressor and statin. - Duonebs. - IS. - PT/ OT. Hypokalemia Resolved. - D/c IVFs with KCl. - follow BMP. DVT Prophylaxis: SCD/Teds. Discharge Planning Awaiting surgery Problem Qualifiers (1) Bowel obstruction: Qualified Codes: K56.609 - Unspecified intestinal obstruction, unspecified as to partial versus complete obstruction Dwain Tolbert DO Feb 05, 2017 11:01
[2017-02-05] MEDS ORDERED: POTASSIUM CHLORIDE 25 MEQ EFFERVESCENT TAB PO ONE (11:15)
[2017-02-05] MEDS ORDERED: RESP: ALBUTEROL 2.5 MG/IPRATROPIUM 0.5 MG NEB (SCH) NEB ONE (11:30)
[2017-02-05] MEDS ORDERED: FUROSEMIDE 20 MG/2 ML VIAL IV PUSH ONE (11:30)
--- NOTE | 2017-02-05 11:33 | RADRPT ---
EXAM DATE/TIME: 02/05/2017 10:57 [facility] COMPARISON: CT ABDOMEN & PELVIS W/O CONTRAST, February 01, 2017, 23:56. CHEST SINGLE AP, February 01, 2017, 22:4 2. INDICATIONS : Shortness of breath. MEDICAL HISTORY : Hypertension. Hypercholesterolemia. Congestive heart failure. Asthma. SURGICAL HISTORY : Cardiac stent. ENCOUNTER: Subsequent ACUITY: 1 week PAIN SCORE: 0/10 LOCATION: Bilateral chest FINDINGS: A single portable frontal view of the chest shows minimal atelectasis within the left lung base. Righ t lung is clear. No infiltrates or effusions. Heart is mildly enlarged but stable. Bony structures ar e unremarkable. CONCLUSION: Cardiomegaly with minimal left basilar atelectasis. Jorge Bradford Jr., MD on February 05, 2017 at 11:29 Board Certified Radiologist. This report was verified electronically.
[2017-02-05 12:00] VITALS: BP 113/69; PULSE 86; RESP 16; TEMP 97.8; O2SAT 93; O2SAT 94
[2017-02-05] MEDS: METOPROLOL TARTRATE 25 MG TAB PO SCH ×2 (12:24→23:00)
[2017-02-05 16:00] VITALS: BP 116/61; PULSE 77; RESP 16; TEMP 97; O2SAT 92
[2017-02-05] MEDS: FUROSEMIDE 20 MG/2 ML VIAL IV PUSH SCH (17:53)
[2017-02-05] MEDS ORDERED: BUPIVACAINE/EPINEPHRINE 0.25% PF 10 ML VIAL INFIL ONE (20:02)
[2017-02-05] MEDS: ATORVASTATIN 20 MG TAB PO SCH (21:00)
[2017-02-05] MEDS ORDERED: SUGAMMADEX SODIUM 200 MG/2 ML VIAL IV PUSH ONE ×2 (21:16)
[2017-02-05] MEDS ORDERED: DO NOT ADM ANY ANTICOAGULANT DRUGS PRN (21:34)
[2017-02-05] MEDS ORDERED: *morphine SULFATE 8 MG/ML PERIprocedure ONLY ONE ×2 (21:42→22:13)
[2017-02-05] MEDS ORDERED: *ONDANSETRON 4 MG VIAL PERIprocedural Use ONLY ONE (21:51)
[2017-02-05 22:30] VITALS: BP 134/63; PULSE 68; RESP 17; TEMP 96.9; O2SAT 98
[2017-02-06] VITALS (7 sets, daily range): BP systolic 116–148; BP diastolic 60–78; PULSE 72–96; RESP 18; TEMP 96–98.3; O2SAT 93–99
[2017-02-06] MEDS: MORPHINE SULFATE 2 MG/ML INJ IV PRN ×5 (01:03→23:32)
[2017-02-06] MEDS: ONDANSETRON HCL 4 MG/2 ML VIAL IVP PRN ×3 (01:03→23:33)
[2017-02-06] MEDS: metroNIDAZOLE 500 MG INJ 100 ML IV SCH ×3 (01:03→18:27)
[2017-02-06 07:13] LABS: BICARBONATE 30.6 MEQ/L (21.0-32.0); MAGNESIUM 2.1 MG/DL (1.5-2.5); POTASSIUM 4.1 MEQ/L (3.5-5.1)
[2017-02-06 07:17] LABS: HEMATOCRIT 36.9 % (35.0-46.0); MEAN CELL VOLUME 94.5 FL (80.0-100.0); MEAN CORPUSCULAR HEMOGLOBIN 31.2 PG (27.0-34.0); PLATELET COUNT 188 TH/MM3 (150-450); RED BLOOD COUNT 3.91 MIL/MM3 (4.00-5.30); RED CELL DISTRIBUTION WIDTH 14.8 % (11.6-17.2); REVIEW FLAG FINAL; WHITE BLOOD COUNT 17.3 TH/MM3 (4.0-11.0)
[2017-02-06] MEDS: SODIUM CHLORIDE 0.9% FLUSH 10 ML FLUSH IV FLUSH SCH ×2 (08:59→20:00)
[2017-02-06] MEDS: FUROSEMIDE 20 MG/2 ML VIAL IV PUSH SCH ×2 (09:00→18:28)
[2017-02-06] MEDS: DOCUSATE SODIUM 50 MG/SENNA 8.6 MG TAB PO SCH ×2 (09:00→19:59)
[2017-02-06] MEDS: METOPROLOL TARTRATE 25 MG TAB PO SCH ×2 (10:21→23:28)
[2017-02-06] MEDS: CIPROFLOXACIN 400 MG PREMIX 200 ML IV SCH ×2 (10:21→23:27)
--- NOTE | 2017-02-06 15:25 | HHI.PR ---
Subjective Remarks The patient said that she was having some back pain but not abdominal pain. She said that her breathing was better. She had no acute complaints. Objective Vitals Vital Signs Date Time Temp Pulse Resp B/P (MAP) Pulse Ox O2 Delivery O2 Flow Rate FiO2 02/06/17 11:07 97.5 96 18 129/68 (88) 98 02/06/17 07:20 97.7 95 18 134/72 (92) 97 02/06/17 06:50 Nasal Cannula 2.00 02/06/17 04:05 98.3 76 18 141/78 (99) 95 02/06/17 04:00 Nasal Cannula 3.00 02/06/17 00:02 96.9 72 18 148/76 (100) 98 02/05/17 22:59 Nasal Cannula 3.00 02/05/17 22:30 96.9 68 17 134/63 (86) 98 02/05/17 22:00 66 17 137/65 (89) 99 Nasal Cannula 4 02/05/17 21:45 75 17 146/70 (95) 98 Nasal Cannula 4 02/05/17 21:30 75 17 139/63 (88) 92 Nasal Cannula 4 02/05/17 21:27 98.6 68 15 134/58 (83) 87 Nasal Cannula 4 02/05/17 18:40 98.1 92 16 131/67 (88) 98 02/05/17 16:00 97.0 77 16 116/61 (79) 92 I/O 02/05/17 02/05/17 02/05/17 02/06/17 02/06/17 02/06/17 07:00 15:00 23:00 07:00 15:00 23:00 Intake Total 200 ml 1500 ml 540 ml Output Total 260 ml 125 ml Balance 200 ml 1240 ml 415 ml Intake Oral 0 ml 240 ml IV Total 200 ml 100 ml 300 ml Other 1400 ml Drainage Total 160 ml 125 ml Estimated Blood Loss 100 ml # Voids 2 4 3 # Bowel Movements 0 0 0 Result Diagram: 02/06/17 0545 02/06/17 0545 Imaging Last Impressions Chest X-Ray 02/05/17 0000 Signed Impressions: Service Date/Time: Sunday, February 05, 2017 10:57 - CONCLUSION: Cardiomegaly with minimal left basilar atelectasis. Jorge Bradford Jr., MD Abdomen/Pelvis CT 02/01/17 2257 Signed Impressions: Service Date/Time: Wednesday, February 01, 2017 23:56 - CONCLUSION: 1. 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 No evidence of metastatic disease. 2. 1 cm hypodensity of the left hepatic lobe is most likely a cyst. Francis Zafar MD Abdomen X-Ray 02/01/17 0000 Signed Impressions: Service Date/Time: Wednesday, February 01, 2017 22:43 - CONCLUSION: Suspected colitis. Nonobstructive pattern. Francis Zafar MD Objective Remarks GENERAL: NAD, resting in bed. SKIN: Warm and dry. HEAD: Normocephalic. EYES: No scleral icterus. No injection or drainage. NECK: Supple, trachea midline. No JVD or lymphadenopathy. CARDIOVASCULAR: Regular rate and rhythm without murmurs, gallops, or rubs. RESPIRATORY: Mild bilateral wheezing appreciated. GASTROINTESTINAL: Abdomen soft, non-tender, nondistended. hypoactive BS. MUSCULOSKELETAL: 1+ LE edema. BACK: Nontender without obvious deformity. No CVA tenderness. PSYCH: Mood and affect appropriate. Procedures Colonoscopy Medications and IVs Current Medications Medications (Trade) Dose Ordered Sig/Lizy Route Start Time Stop Time Status Last Admin Metronidazole 100 ml @ 100 mls/hr Q8H IV 02/02/17 10:00 02/06/17 09:02 Ciprofloxacin/ Dextrose 200 ml @ 200 mls/hr Q12H IV 02/02/17 23:00 02/06/17 10:21 (NS Flush) 2 ml UNSCH PRN IV FLUSH 02/02/17 01:45 (NS Flush) 2 ml BID IV FLUSH 02/02/17 09:00 02/06/17 08:59 (Zofran Inj) 4 mg Q6H PRN IVP 02/02/17 01:45 02/06/17 01:03 (Tylenol) 650 mg Q6H PRN PO 02/02/17 01:45 02/05/17 08:16 (Sulma-Colace) 1 tab BID PO 02/02/17 09:00 02/06/17 09:00 (Milk Of Magnesia Liq) 30 ml Q12H PRN PO 02/02/17 01:45 (Senokot) 17.2 mg Q12H PRN PO 02/02/17 01:45 (Dulcolax Supp) 10 mg DAILY PRN RECTAL 02/02/17 01:45 (Lactulose Liq) 30 ml DAILY PRN PO 02/02/17 01:45 (Morphine Inj) 2 mg Q3H PRN IV 02/02/17 02:15 02/06/17 12:00 (Morphine Inj) 2 mg Q3H PRN IV 02/02/17 02:15 (Duoneb Neb) 1 ampule Q4HR NEB PRN NEB 02/02/17 02:30 02/04/17 12:26 (Lopressor) 25 mg Q12H PO 02/05/17 11:00 02/06/17 10:21 (Lipitor) 20 mg HS PO 02/05/17 21:00 (Lasix Inj) 20 mg BID@09,18 IV PUSH 02/05/17 18:00 02/06/17 09:00 Miscellaneous Information ALL NURSING DEPARTME... UNSCH PRN .XX 02/05/17 21:34 02/06/17 21:33 A/P Problem List: (1) Colitis ICD Code: K52.9 - Noninfective gastroenteritis and colitis, unspecified (2) Bowel obstruction ICD Code: K56.609 - Unspecified intestinal obstruction, unspecified as to partial versus complete obstruction (3) Colonic mass ICD Code: K63.9 - Disease of intestine, unspecified (4) Hypokalemia ICD Code: E87.6 - Hypokalemia Assessment and Plan Colitis CT Abd/Pelvis w/ mild colitis. Afebrile. WBC normal. S/p Cipro/Flagyl in ER. - continue w/ IV Abx. Bowel Obstruction H/o constipation for approx 1wk, +flatulence, CT Abd/Pelvis w/ suspected colon mass and obstruction. Colonoscopy with mass, s/p biopsies. Surgical consult appreciated. S/p surgery 02/05. - wound care and pain control per surgery. - follow pathology. 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 S/p surgery. - follow pathology. Acute on chronic systolic CHF Echo with EF 30-35%. Currently on 2L NC. Exacerbated by IVFs received for above conditions. - Lasix 20 mg IV BID. - resume Lopressor and statin. - Duonebs. - IS. - PT/ OT. Hypokalemia Resolved. - D/c IVFs with KCl. - follow BMP. Leukocytosis Likely reactive secondary to surgery. - Follow CBC. DVT Prophylaxis: SCD/Teds. Discharge Planning Awaiting surgery clearance Problem Qualifiers (1) Bowel obstruction: Qualified Codes: K56.609 - Unspecified intestinal obstruction, unspecified as to partial versus complete obstruction Dwain Tolbert DO Feb 06, 2017 15:25
--- NOTE | 2017-02-06 15:46 | HHI.PR ---
Subjective Subjective Notes Resting in bed Tolerating clears Objective Vitals/I&O Vital Signs Date Time Temp Pulse Resp B/P (MAP) Pulse Ox O2 Delivery O2 Flow Rate FiO2 02/06/17 11:07 97.5 96 18 129/68 (88) 98 02/06/17 06:50 Nasal Cannula 2.00 Labs Laboratory Tests Test 02/06/17 05:45 White Blood Count 17.3 Red Blood Count 3.91 Hemoglobin 12.2 Hematocrit 36.9 Mean Corpuscular Volume 94.5 Mean Corpuscular Hemoglobin 31.2 Mean Corpuscular Hemoglobin Concent 33.0 Red Cell Distribution Width 14.8 Platelet Count 188 Mean Platelet Volume 10.3 Blood Urea Nitrogen 7 Creatinine 0.68 Random Glucose 120 Calcium Level 8.3 Magnesium Level 2.1 Sodium Level 140 Potassium Level 4.1 Chloride Level 103 Carbon Dioxide Level 30.6 Anion Gap 6 Estimat Glomerular Filtration Rate 83 Date/Time Source Procedure Growth Status 02/02/17 01:00 Urine Clean Catch Urine Culture - Final 50-100,000 CFU/ML MIXED KARLA... Complete Radiology Last Impressions Abdomen/Pelvis CT 02/01/172256 Signed Impressions: Service Date/Time: Wednesday, February 01, 2017 23:56 - CONCLUSION: 1. 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 No evidence of metastatic disease. 2. 1 cm hypodensity of the left hepatic lobe is most likely a cyst. Francis Zafar MD Chest X-Ray 02/01/172152 Signed Impressions: Service Date/Time: Wednesday, February 01, 2017 22:42 - CONCLUSION: Very mild bibasilar atelectasis and borderline cardiomegaly. Francis Zafar MD Abdomen X-Ray 02/01/17 0000 Signed Impressions: Service Date/Time: Wednesday, February 01, 2017 22:43 - CONCLUSION: Suspected colitis. Nonobstructive pattern. Francis Zafar MD Cardiovascular: Regular Lungs: Clear Abdomen: Other (incision c/d/i; EMERY with serosanguineous drainage; colostomy--- stoma pink; liquid drainage in bag ) Extremities: No edema A/P Assessment and Plan 81 year old female with high grade distal colon obstruction, likely malignant; POD1 dx lap; open sigmoid resection; end colostomy -Clear liquids -Consult to Colostomy nurse -PT -Await pathology Attending Statement pain controlled postop await bowel function at ostomy abdominal exam, stable postop exam with incisional pain, no peritonitis or rebound tenderness The exam, history, and the medical decision-making described in the above note were completed with the assistance of the mid-level provider. I reviewed and agree with the findings presented. I attest that I had a [id number] encounter with the patient on the same day, and personally performed and documented my assessment and findings in the medical record. Katelyn Law Feb 06, 2017 15:46 Ricardo Oneal MD Feb 09, 2017 08:13
--- NOTE | 2017-02-06 17:07 | PD.WCN.NOT ---
Ostomy Type: Colostomy Surgeon: Ricardo Oneal MD Date of Surgery: Feb 05, 2017 Complete: Starter kit, Education materials Educated patient on: Stoma appearance, Size,Output,Empting bag when half full, Appliance change and frequency, Sign and symptoms of complications. Additional information Patient was seen today by television script writer on [facility].patient alert in bed on a Airapy mattress.Pain controlled at this time.Colostomy kit delivered to patient room general education given RE: Stoma appearance, type of colostomy ( descending colon) Empting bag when half full.Measurement obtained stoma is( 5.4cm x 5cm x 2.4cm) protruding beefy red with sutures and 1 staple intact producing bloody soft stool.Appliance removed due to leakage .Coloplast cut to fit on hand at this time.Sulma stoma cleansed with normal saline pat dry,skin prep to periwound wafer cut to 60mm round applied to stoma sealed to secure fit with no wrinkles,bag applied.Patient tolerated appliance change well.Demonstrated general education and management of colostomy.Further reinforced teaching required. Maldonado Zimmerman [facility] Feb 06, 2017 17:07
[2017-02-06] MEDS: ATORVASTATIN 20 MG TAB PO SCH (19:59)
[2017-02-07] VITALS (8 sets, daily range): BP systolic 75–152; BP diastolic 44–76; PULSE 83–155; RESP 16–19; TEMP 95.8–98.3; O2SAT 88–100
[2017-02-07] MEDS: metroNIDAZOLE 500 MG INJ 100 ML IV SCH ×3 (01:46→17:27)
[2017-02-07] MEDS: ONDANSETRON HCL 4 MG/2 ML VIAL IVP PRN (06:33)
[2017-02-07 07:02] LABS: AUTOMATED NEUTROPHIL # 10.7 TH/MM3 (1.8-7.7); BASOPHIL % 0.1 % (0.0-2.0); EOSINOPHIL # 0.2 TH/MM3 (0-0.4); EOSINOPHIL % 1.7 % (0.0-4.0); HEMATOCRIT 37.7 % (35.0-46.0); HEMO FLAGS DIFF FINAL; LYMPH % 9.3 % (9.0-44.0); LYMPHOCYTE # 1.2 TH/MM3 (1.0-4.8); MEAN CELL VOLUME 95.2 FL (80.0-100.0); MEAN CORPUSCULAR HEMOGLOBIN 31.1 PG (27.0-34.0); MEAN CORPUSCULAR HGB CONC 32.7 % (32.0-36.0); MONO % 6.3 % (0.0-8.0); NEUT % 82.6 % (16.0-70.0); PLATELET COUNT 211 TH/MM3 (150-450); RED BLOOD COUNT 3.96 MIL/MM3 (4.00-5.30); RED CELL DISTRIBUTION WIDTH 14.6 % (11.6-17.2); WHITE BLOOD COUNT 12.9 TH/MM3 (4.0-11.0)
[2017-02-07] MEDS: DOCUSATE SODIUM 50 MG/SENNA 8.6 MG TAB PO SCH ×2 (09:48→21:01)
[2017-02-07] MEDS: FUROSEMIDE 20 MG/2 ML VIAL IV PUSH SCH (09:48)
[2017-02-07] MEDS: SODIUM CHLORIDE 0.9% FLUSH 10 ML FLUSH IV FLUSH SCH ×2 (09:49→21:00)
[2017-02-07] MEDS: METOPROLOL TARTRATE 25 MG TAB PO SCH ×2 (10:00→22:51)
[2017-02-07] MEDS: MORPHINE SULFATE 2 MG/ML INJ IV PRN ×3 (10:00→21:01)
[2017-02-07] MEDS: CIPROFLOXACIN 400 MG PREMIX 200 ML IV SCH (10:00)
[2017-02-07] MEDS ORDERED: SODIUM CHLORID 0.9% 500 ML INJ 500 ML IV SCH (11:30)
--- NOTE | 2017-02-07 12:20 | RADRPT ---
EXAM DATE/TIME: 02/07/2017 11:40 [facility] COMPARISON: CHEST SINGLE AP, February 05, 2017, 10:57. INDICATIONS : Shortness of breath. MEDICAL HISTORY : Hypertension. Hypercholesterolemia. Congestive heart failure. Asthma. SURGICAL HISTORY : Cardiac stent. ENCOUNTER: Subsequent ACUITY: 1 week PAIN SCORE: 0/10 LOCATION: Bilateral chest FINDINGS: A single view of the chest demonstrates basilar consolidation. No significant effusion. No pneumothor ax. CONCLUSION: 1. Subsegmental consolidation at the lung bases. No significant effusion. No pneumothorax. Filiberto Brown MD on February 07, 2017 at 12:17 Board Certified Radiologist. This report was verified electronically.
--- NOTE | 2017-02-07 13:26 | MP ---
cc: KERRI ALDANA DATE OF SURGERY 02/05/2017 PREOPERATIVE DIAGNOSIS Nearly-obstructing sigmoid mass. Biopsy shows adenocarcinoma. POSTOPERATIVE DIAGNOSIS Nearly-obstructing sigmoid mass. Biopsy shows adenocarcinoma. PROCEDURE 1. Diagnostic laparoscopy. 2. Open sigmoid colectomy with end-colostomy. ANESTHESIA General. ATTENDING SURGEON MD Jm PROJECT FACILITATOR Staff BLOOD LOSS 100 cc. COMPLICATIONS None. FINDINGS A nearly obstructing mass in the sigmoid colon, grossly and completely resected with opening on the back table. No evidence of disease in the liver. No evidence of carcinomatosis or metastatic disease. INDICATIONS FOR PROCEDURE The patient is an 81-year-old female recently diagnosed with a partial large partial bowel obstruction. Colonoscopy and biopsy showed sigmoid apple-core nearly obstructing mass in the distal sigmoid colon that was unable to be centered or decompressed. After discussion with the patient and her granddaughter, her medical decision maker, recommended diverting colostomy versus possible resection. The risks, benefits and alternatives were discussed with the patient and the family who agreed to undergo the procedure. PROCEDURE The patient was taken to the operating room, placed in a supine position, placed under general endotracheal anesthesia. The patient's abdomen was prepped and draped in a sterile fashion. Time-out was performed. We performed the diagnostic laparoscopy first by making a small incision just below the umbilicus with the 11-blade scalpel. We spread the midline fascia and subcutaneous tissue until we entered the abdominal cavity bluntly. We placed a 10-mm balloon trocar into the abdomen under visualization. We insufflated the abdomen and surveyed the abdomen with a 5-mm 0-degree camera and there was no evidence of any complication from our entry. We surveyed the abdomen. Again there was essentially no acute pathology. There was some mildly inflamed dilated colon but this was rather subtle and there was no evidence of liver disease or carcinomatosis. The mass was very deep into the pelvis and was stuck down into the pelvis likely due to inflammation from either previous diverticulitis or possibly the malignancy itself. I felt that at this point in time the patient was stable medically and proceeding with a sigmoid resection, possible curative resection would be indicated and also this would not be amendable to the laparoscopic approach due to it being deep in the pelvis with adhesions on the sigmoid colon. We removed the laparoscope, expressed the pneumoperitoneum. We made a lower midline incision from the umbilicus down to the pubis with the scalpel. Using Bovie electrocautery, dissected the subcutaneous tissue to opened the fascia for the full length of the incision. We placed an Ronnell wound retractor. We then were able to gain access to the abdomen. We mobilized the sigmoid colon with a long Bovie tip. We again had lysis of adhesions down in the pelvis and mobilized the sigmoid colon up. We could easily palpate the mass in the distal sigmoid. We were able to divide the sigmoid colon as it turned the corner medially over the left pelvic brim with a BALAJI 55 stapler. We used the open Enseal to divide the mesentery to mobilize the proximal colon for a colostomy. This was packed out of the way. We then used the Enseal to take the sigmoid mesentery down to the rectal mesocolon as it splayed in the brim of the pelvis. We again lysed some adhesions with Bovie electrocautery to bring up our sigmoid. Once the sigmoid was tented up, we had several cm with the mass in the center portion. Again this was in the distal sigmoid and not at the area of the rectum. We placed a contour stapler distal to the tumor and fired this without difficulty. We then passed the specimen off for permanent processing, however, did open this on the back table to confirm. We did get the obstructing mass. This appeared grossly negative proximal and distal. The mass appeared to be closer to the distal margin. The did at this point irrigate out the abdomen until all succinate was clear. We had placed two Prolene sutures at the edges of the stump at the rectosigmoid junction. We placed a 19-Yakut round Nagi drain looped in the pelvis and brought through a separate stab incision and sutured this in place with a nylon suture. We made a colostomy incision excision to the left of the umbilicus. We cored out the skin and fat using Bovie electrocautery, made a cruciate incision in the anterior rectus sheath, spread the rectus muscles and made a longitudinal incision in the posterior rectus sheath. We passed about 3-4 fingers through this and with taking down some of the tinea we easily brought up our proximal sigmoid and distal descending colon up through this colostomy incision to sit well without any kinking. We were able to turn our attention towards closure. Again we ensured our small bowel lay in normal anatomic position, placed omentum back over the midline. We closed the midline incision with a running #1 looped PDS suture, closed the skin with drea and a sterile dressing was applied. We then removed the staple line from our colon and performed Catina colostomy in standard fashion using 4-0 Vicryl sutures, placed an ostomy appliance over the ostomy. This was then verified to be patent on digital exam and viable mucosa. The patient was discontinued from anesthesia and taken to the PACU in stable condition. The patient tolerated procedure well. No apparent complications. All counts were correct and I was present and scrubbed for the entire procedure. MD FRANCI Barajas/SHAHAB /9:10 PM /12:39 PM
--- NOTE | 2017-02-07 15:31 | HHI.PR ---
Subjective Remarks Alerted by nursing that the patient was found to have low blood pressure and fast heart rate after working with physical therapy. After resting her hypotension and tachycardia resolved. The patient does endorse persistent nausea. She has abdominal pain in the flanks upon movement. She has sugars of breath at times. Her son was at the bedside and their questions were answered. Objective Vitals Vital Signs Date Time Temp Pulse Resp B/P (MAP) Pulse Ox O2 Delivery O2 Flow Rate FiO2 02/07/17 12:04 96.2 90 19 152/76 (101) 100 02/07/17 11:26 117/71 (86) 02/07/17 11:19 116/69 (85) 88 02/07/17 11:15 155 75/44 (54) 88 02/07/17 07:50 98.3 96 18 133/63 (86) 97 02/07/17 04:23 96.7 86 18 106/58 (74) 95 02/06/17 23:32 96.7 83 18 116/65 (82) 95 02/06/17 19:30 96.9 83 18 134/69 (90) 93 02/06/17 16:00 96.0 85 18 118/60 (79) 99 I/O 02/06/17 02/06/17 02/06/17 02/07/17 02/07/17 02/07/17 07:00 15:00 23:00 07:00 15:00 23:00 Intake Total 540 ml 460 ml 780 ml Output Total 125 ml 50 ml 195 ml 235 ml 90 ml Balance 415 ml -50 ml 265 ml 545 ml -90 ml Intake Oral 240 ml 360 ml 480 ml IV Total 300 ml 100 ml 300 ml Output Urine Total 175 ml 175 ml Drainage Total 125 ml 50 ml 20 ml 60 ml 90 ml # Voids 3 # Bowel Movements 0 1 1 Result Diagram: 02/07/17 0617 02/06/17 0545 Imaging Last Impressions Chest X-Ray 02/07/17 0000 Signed Impressions: Service Date/Time: Tuesday, February 07, 2017 11:40 - CONCLUSION: 1. Subsegmental consolidation at the lung bases. No significant effusion. No pneumothorax. Filiberto Brown MD Abdomen/Pelvis CT 02/01/17 2257 Signed Impressions: Service Date/Time: Wednesday, February 01, 2017 23:56 - CONCLUSION: 1. 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 No evidence of metastatic disease. 2. 1 cm hypodensity of the left hepatic lobe is most likely a cyst. Francis Zafar MD Abdomen X-Ray 02/01/17 0000 Signed Impressions: Service Date/Time: Wednesday, February 01, 2017 22:43 - CONCLUSION: Suspected colitis. Nonobstructive pattern. Francis Zafar MD Objective Remarks GENERAL: NAD, resting in bed. SKIN: Warm and dry. HEAD: Normocephalic. EYES: No scleral icterus. No injection or drainage. NECK: Supple, trachea midline. No JVD or lymphadenopathy. CARDIOVASCULAR: Regular rate and rhythm without murmurs, gallops, or rubs. RESPIRATORY: Mild bilateral wheezing appreciated. GASTROINTESTINAL: Abdomen soft, mildly tender, nondistended. Ostomy and surgical scars noted. MUSCULOSKELETAL: 1+ LE edema. BACK: Nontender without obvious deformity. No CVA tenderness. PSYCH: Mood and affect appropriate. Procedures Colonoscopy Medications and IVs Current Medications Medications (Trade) Dose Ordered Sig/Lizy Route Start Time Stop Time Status Last Admin Metronidazole 100 ml @ 100 mls/hr Q8H IV 02/02/17 10:00 02/07/17 09:48 (NS Flush) 2 ml UNSCH PRN IV FLUSH 02/02/17 01:45 (NS Flush) 2 ml BID IV FLUSH 02/02/17 09:00 02/07/17 09:49 (Zofran Inj) 4 mg Q6H PRN IVP 02/02/17 01:45 02/07/17 06:33 (Tylenol) 650 mg Q6H PRN PO 02/02/17 01:45 02/05/17 08:16 (Sulma-Colace) 1 tab BID PO 02/02/17 09:00 02/07/17 09:48 (Milk Of Magnesia Liq) 30 ml Q12H PRN PO 02/02/17 01:45 (Senokot) 17.2 mg Q12H PRN PO 02/02/17 01:45 (Dulcolax Supp) 10 mg DAILY PRN RECTAL 02/02/17 01:45 (Lactulose Liq) 30 ml DAILY PRN PO 02/02/17 01:45 (Morphine Inj) 2 mg Q3H PRN IV 02/02/17 02:15 02/07/17 10:00 (Morphine Inj) 2 mg Q3H PRN IV 02/02/17 02:15 (Duoneb Neb) 1 ampule Q4HR NEB PRN NEB 02/02/17 02:30 02/04/17 12:26 (Lopressor) 25 mg Q12H PO 02/05/17 11:00 02/07/17 10:00 (Lipitor) 20 mg HS PO 02/05/17 21:00 02/06/17 19:59 Sodium Chloride 500 ml @ 75 mls/hr Q6H40M IV 02/07/17 11:30 02/07/17 18:09 02/07/17 11:30 A/P Problem List: (1) Colitis ICD Code: K52.9 - Noninfective gastroenteritis and colitis, unspecified (2) Bowel obstruction ICD Code: K56.609 - Unspecified intestinal obstruction, unspecified as to partial versus complete obstruction (3) Colonic mass ICD Code: K63.9 - Disease of intestine, unspecified (4) Hypokalemia ICD Code: E87.6 - Hypokalemia Assessment and Plan Colitis CT Abd/Pelvis w/ mild colitis. Afebrile. WBC normal. S/p Cipro/Flagyl in ER. - continue w/ IV Abx. Changed to Flagyl and doxycycline. Bowel Obstruction H/o constipation for approx 1wk, +flatulence, CT Abd/Pelvis w/ suspected colon mass and obstruction. Colonoscopy with mass, s/p biopsies. Surgical consult appreciated. S/p surgery 02/05. - wound care and pain control per surgery. - follow pathology. 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 S/p surgery. - follow pathology. Acute on chronic systolic CHF Echo with EF 30-35%. Currently on 2L NC. Exacerbated by IVFs received for above conditions. - D/c Lasix 20 mg IV BID. - resume Lopressor and statin. - Duonebs. - IS. - PT/ OT. Hypokalemia Resolved. - D/c IVFs with KCl. - follow BMP. Hypotension/ tachycardia Resolved with rest. EKG unchanged. - follow trops. - telemetry. - fluids as needed. Pneumonia Consolidation noted at the bases. - change antibiotics to doxycycline and Flagyl IV. - check sputum culture. DVT Prophylaxis: SCD/Teds. Discharge Planning Awaiting surgery clearance Problem Qualifiers (1) Bowel obstruction: Qualified Codes: K56.609 - Unspecified intestinal obstruction, unspecified as to partial versus complete obstruction Dwain Tolbert DO Feb 07, 2017 15:31
--- NOTE | 2017-02-07 16:02 | HHI.PR ---
Subjective Subjective Notes Resting in bed Had episode of sudden hypotension earlier today --- Notified by [facility] [place] Feels better now Likes the clear liquids Objective Vitals/I&O Vital Signs Date Time Temp Pulse Resp B/P (MAP) Pulse Ox O2 Delivery O2 Flow Rate FiO2 02/07/17 12:04 96.2 90 19 152/76 (101) 100 02/06/17 06:50 Nasal Cannula 2.00 Labs Laboratory Tests Test 02/07/17 06:17 02/07/17 13:03 White Blood Count 12.9 Red Blood Count 3.96 Hemoglobin 12.3 Hematocrit 37.7 Mean Corpuscular Volume 95.2 Mean Corpuscular Hemoglobin 31.1 Mean Corpuscular Hemoglobin Concent 32.7 Red Cell Distribution Width 14.6 Platelet Count 211 Mean Platelet Volume 9.7 Neutrophils (%) (Auto) 82.6 Lymphocytes (%) (Auto) 9.3 Monocytes (%) (Auto) 6.3 Eosinophils (%) (Auto) 1.7 Basophils (%) (Auto) 0.1 Neutrophils # (Auto) 10.7 Lymphocytes # (Auto) 1.2 Monocytes # (Auto) 0.8 Eosinophils # (Auto) 0.2 Basophils # (Auto) 0.0 CBC Comment DIFF FINAL Differential Comment Lactic Acid Level 1.4 Troponin I 0.02 Date/Time Source Procedure Growth Status 02/02/17 01:00 Urine Clean Catch Urine Culture - Final 50-100,000 CFU/ML MIXED KARLA... Complete Radiology Last Impressions Abdomen/Pelvis CT 02/01/172256 Signed Impressions: Service Date/Time: Wednesday, February 01, 2017 23:56 - CONCLUSION: 1. 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 No evidence of metastatic disease. 2. 1 cm hypodensity of the left hepatic lobe is most likely a cyst. Francis Zafar MD Chest X-Ray 02/01/171 Signed Impressions: Service Date/Time: Wednesday, February 01, 2017 22:42 - CONCLUSION: Very mild bibasilar atelectasis and borderline cardiomegaly. Francis Zafar MD Abdomen X-Ray 02/01/17 0000 Signed Impressions: Service Date/Time: Wednesday, February 01, 2017 22:43 - CONCLUSION: Suspected colitis. Nonobstructive pattern. Francis Zafar MD Cardiovascular: Regular Lungs: Clear Abdomen: Other (midline incison with moderate drainage on dressing---removed; Colostomy with pink stoma--- liquid drainage in bag; no gas ) Extremities: No edema A/P Assessment and Plan 81 year old female with high grade distal colon obstruction, likely malignant; POD2 dx lap; open sigmoid resection; end colostomy -Clear liquids -Consult to Colostomy nurse -Dry dressing to midline incision -PT -Await pathology Attending Statement s/p sigmoid colectomy no acute events overnight pain controlled, resting exam: abdominal exam benign postop, ostomy pink/viable and with some small output advance diet, DC planning The exam, history, and the medical decision-making described in the above note were completed with the assistance of the mid-level provider. I reviewed and agree with the findings presented. I attest that I had a [id number] encounter with the patient on the same day, and personally performed and documented my assessment and findings in the medical record. Katelyn Lwa Feb 07, 2017 16:02 Ricardo Oneal MD Feb 09, 2017 08:37
[2017-02-07] MEDS: DOXYCYCLINE INJ 100 MG in SODIUM CHLORIDE 0.9% INJ 100 ML IV SCH (17:27)
--- NOTE | 2017-02-07 17:36 | EKG ---
Date Performed: 02/07/2017 Time Performed: 11:31:00 PTAGE: 81 years EKG: Sinus rhythm MARKED LEFT AXIS DEVIATION LEFT BUNDLE BRANCH BLOCK ABNORMAL ECG PREVIOUS TRACING : 02/03/2017 06.17 Compared to prior tracing no significant change DOCTOR: Shay Arce Interpretating Date/Time 02/07/2017 17:34:53
[2017-02-07] MEDS: ATORVASTATIN 20 MG TAB PO SCH (21:01)
[2017-02-08] VITALS (7 sets, daily range): BP systolic 98–140; BP diastolic 61–69; PULSE 81–107; RESP 16–18; TEMP 95.3–98.2; O2SAT 93–98
[2017-02-08] MEDS: metroNIDAZOLE 500 MG INJ 100 ML IV SCH ×3 (01:02→18:33)
[2017-02-08] MEDS: DOXYCYCLINE INJ 100 MG in SODIUM CHLORIDE 0.9% INJ 100 ML IV SCH ×2 (04:15→18:33)
[2017-02-08] MEDS: ONDANSETRON HCL 4 MG/2 ML VIAL IVP PRN (04:26)
[2017-02-08] MEDS: RESP: ALBUTEROL 2.5 MG/IPRATROPIUM 0.5 MG NEB (PRN) NEB ×2 (05:11→22:21)
[2017-02-08 06:44] LABS: HEMATOCRIT 40.8 % (35.0-46.0); MEAN CELL VOLUME 94.6 FL (80.0-100.0); MEAN CORPUSCULAR HEMOGLOBIN 31.7 PG (27.0-34.0); MEAN CORPUSCULAR HGB CONC 33.4 % (32.0-36.0); PLATELET COUNT 241 TH/MM3 (150-450); RED BLOOD COUNT 4.31 MIL/MM3 (4.00-5.30); RED CELL DISTRIBUTION WIDTH 14.7 % (11.6-17.2); REVIEW FLAG FINAL; WHITE BLOOD COUNT 10.2 TH/MM3 (4.0-11.0)
[2017-02-08 07:02] LABS: BICARBONATE 32.3 MEQ/L (21.0-32.0); MAGNESIUM 1.9 MG/DL (1.5-2.5); POTASSIUM 3.4 MEQ/L (3.5-5.1)
[2017-02-08] MEDS: METOPROLOL TARTRATE 25 MG TAB PO SCH (10:45)
[2017-02-08] MEDS: SODIUM CHLORIDE 0.9% FLUSH 10 ML FLUSH IV FLUSH SCH ×2 (11:03→20:33)
[2017-02-08] MEDS: DOCUSATE SODIUM 50 MG/SENNA 8.6 MG TAB PO SCH ×2 (11:03→20:32)
[2017-02-08] MEDS ORDERED: POTASSIUM CHLORIDE 20 MEQ CONTROLLED RELEASE TAB PO ONE (12:30)
--- NOTE | 2017-02-08 13:07 | HHI.PR ---
Subjective Remarks The patient was resting in bed comfortably. She says she was nauseous earlier. She has some abdominal pain on the left side. She wanted to get out of bed and work with physical therapy. Discussed with nursing at the bedside. Objective Vitals Vital Signs Date Time Temp Pulse Resp B/P (MAP) Pulse Ox O2 Delivery O2 Flow Rate FiO2 02/08/17 08:00 98.2 95 17 118/61 (80) 98 02/08/17 04:00 97.9 89 16 98/61 (73) 95 02/08/17 00:00 97.7 90 17 125/68 (87) 98 02/07/17 20:00 96.7 88 16 137/69 (91) 97 02/07/17 20:00 93 Nasal Cannula 3.00 02/07/17 16:02 95.8 83 19 133/71 (91) 96 I/O 02/07/17 02/07/17 02/07/17 02/08/17 02/08/17 02/08/17 07:00 15:00 23:00 07:00 15:00 23:00 Intake Total 780 ml 480 ml 240 ml 220 ml Output Total 235 ml 90 ml 490 ml 330 ml Balance 545 ml 390 ml -250 ml -110 ml Intake Oral 480 ml 480 ml 240 ml 120 ml IV Total 300 ml 100 ml Output Urine Total 175 ml 400 ml 200 ml Drainage Total 60 ml 90 ml 90 ml 130 ml # Voids 5 # Bowel Movements 1 0 Result Diagram: 02/08/17 0540 02/08/17 0540 Imaging Last Impressions Chest X-Ray 02/07/17 0000 Signed Impressions: Service Date/Time: Tuesday, February 07, 2017 11:40 - CONCLUSION: 1. Subsegmental consolidation at the lung bases. No significant effusion. No pneumothorax. Filiberto Brown MD Abdomen/Pelvis CT 02/01/17 2257 Signed Impressions: Service Date/Time: Wednesday, February 01, 2017 23:56 - CONCLUSION: 1. 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 No evidence of metastatic disease. 2. 1 cm hypodensity of the left hepatic lobe is most likely a cyst. Francis Zafar MD Abdomen X-Ray 02/01/17 0000 Signed Impressions: Service Date/Time: Saturday, February 01, 2017 22:43 - CONCLUSION: Suspected colitis. Nonobstructive pattern. Francis Zafar MD Objective Remarks GENERAL: NAD, resting in bed. SKIN: Warm and dry. HEAD: Normocephalic. EYES: No scleral icterus. No injection or drainage. NECK: Supple, trachea midline. No JVD or lymphadenopathy. CARDIOVASCULAR: Regular rate and rhythm without murmurs, gallops, or rubs. RESPIRATORY: Mild bilateral wheezing appreciated. GASTROINTESTINAL: Abdomen soft, mildly tender, nondistended. Ostomy and surgical scars noted. MUSCULOSKELETAL: 1+ LE edema. BACK: Nontender without obvious deformity. No CVA tenderness. PSYCH: Mood and affect appropriate. Procedures Colonoscopy Colon surgery Medications and IVs Current Medications Medications (Trade) Dose Ordered Sig/Lizy Route Start Time Stop Time Status Last Admin Metronidazole 100 ml @ 100 mls/hr Q8H IV 02/02/17 10:00 02/08/17 11:06 (NS Flush) 2 ml UNSCH PRN IV FLUSH 02/02/17 01:45 (NS Flush) 2 ml BID IV FLUSH 02/02/17 09:00 02/08/17 11:03 (Zofran Inj) 4 mg Q6H PRN IVP 02/02/17 01:45 02/08/17 04:26 (Tylenol) 650 mg Q6H PRN PO 02/02/17 01:45 02/05/17 08:16 (Sulma-Colace) 1 tab BID PO 02/02/17 09:00 02/08/17 11:03 (Milk Of Magnesia Liq) 30 ml Q12H PRN PO 02/02/17 01:45 (Senokot) 17.2 mg Q12H PRN PO 02/02/17 01:45 (Dulcolax Supp) 10 mg DAILY PRN RECTAL 02/02/17 01:45 (Lactulose Liq) 30 ml DAILY PRN PO 02/02/17 01:45 (Morphine Inj) 2 mg Q3H PRN IV 02/02/17 02:15 02/07/17 21:01 (Morphine Inj) 2 mg Q3H PRN IV 02/02/17 02:15 (Duoneb Neb) 1 ampule Q4HR NEB PRN NEB 02/02/17 02:30 02/08/17 05:11 (Lopressor) 25 mg Q12H PO 02/05/17 11:00 02/08/17 10:45 (Lipitor) 20 mg HS PO 02/05/17 21:00 02/07/17 21:01 Doxycycline Hyclate 100 mg/ Sodium Chloride 100 ml @ 100 mls/hr Q12H IV 02/07/17 17:00 02/08/17 04:15 A/P Problem List: (1) Colitis ICD Code: K52.9 - Noninfective gastroenteritis and colitis, unspecified (2) Bowel obstruction ICD Code: K56.609 - Unspecified intestinal obstruction, unspecified as to partial versus complete obstruction (3) Colonic mass ICD Code: K63.9 - Disease of intestine, unspecified (4) Hypokalemia ICD Code: E87.6 - Hypokalemia Assessment and Plan Colitis CT Abd/Pelvis w/ mild colitis. Afebrile. WBC normal. S/p Cipro/Flagyl in ER. - continue w/ IV Abx. Changed to Flagyl and doxycycline. Bowel Obstruction H/o constipation for approx 1wk, +flatulence, CT Abd/Pelvis w/ suspected colon mass and obstruction. Colonoscopy with mass, s/p biopsies. Surgical consult appreciated. S/p surgery 02/05. - wound care and pain control per surgery. - follow pathology. 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 S/p surgery. - follow pathology. Acute on chronic systolic CHF Echo with EF 30-35%. Currently on 2L NC. Exacerbated by IVFs received for above conditions. - D/c Lasix 20 mg IV BID. - resume Lopressor and statin. - Duonebs. - IS. - PT/ OT. Hypokalemia Stable. - D/c IVFs with KCl. - follow BMP and replete as needed. Hypotension/ tachycardia Resolved with rest. EKG unchanged. Trops negative x 3. - telemetry. - fluids as needed. Pneumonia Consolidation noted at the bases. Leukocytosis resolved. - change antibiotics to doxycycline and Flagyl IV. - check sputum culture. DVT Prophylaxis: SCD/Teds. Discharge Planning Awaiting surgery clearance Problem Qualifiers (1) Bowel obstruction: Qualified Codes: K56.609 - Unspecified intestinal obstruction, unspecified as to partial versus complete obstruction Dwain Tolbert DO Feb 08, 2017 13:07
[2017-02-08] MEDS ORDERED: MORPHINE SULFATE 2 MG/ML INJ IV PRN ×2 (16:00)
[2017-02-08] MEDS: ATORVASTATIN 20 MG TAB PO SCH (20:32)
[2017-02-09] VITALS (7 sets, daily range): BP systolic 120–144; BP diastolic 59–70; PULSE 77–109; RESP 16–20; TEMP 96.6–98.2; O2SAT 93–95
[2017-02-09] MEDS: metroNIDAZOLE 500 MG INJ 100 ML IV SCH ×3 (00:46→18:55)
[2017-02-09] MEDS: METOPROLOL TARTRATE 25 MG TAB PO SCH ×2 (00:46→11:15)
[2017-02-09] MEDS: DOXYCYCLINE INJ 100 MG in SODIUM CHLORIDE 0.9% INJ 100 ML IV SCH ×2 (04:52→17:16)
[2017-02-09] MEDS: SODIUM CHLORIDE 0.9% FLUSH 10 ML FLUSH IV FLUSH SCH ×2 (11:15→21:16)
[2017-02-09] MEDS: DOCUSATE SODIUM 50 MG/SENNA 8.6 MG TAB PO SCH ×2 (11:15→21:15)
--- NOTE | 2017-02-09 13:50 | PD.WCN.NOT ---
Ostomy Type: Colostomy Surgeon: Ricardo Oneal MD Date of Surgery: Feb 05, 2017 Complete: Starter kit, Education materials Educated patient on: Reinforced teaching on when to empty bag half full,stool appearance.Coloplast cut to fit delivered. Additional information Patient was seen today by medical writer on [facility] present,Patient alert in bed .Verbalized understanding on general education given on colostomy. Color , size,S&S of complication.Stoma present beefy red moist with 600ml of softly form stool emptied from pouch.Sulma stoma intact no signs or symptoms of leakage/ dislodgement.Patient encouraged to write down any questions or concerns pen/ paper left with patient. Maldonado Zimmerman [facility] Feb 09, 2017 13:50
[2017-02-09] MEDS: RESP: ALBUTEROL 2.5 MG/IPRATROPIUM 0.5 MG NEB (PRN) NEB (13:59)
--- NOTE | 2017-02-09 14:35 | HHI.PR ---
Subjective Remarks The patient was resting comfortably in bed. Her daughter was at the bedside and their questions were answered. The patient feels like her breathing is better. She still has abdominal pain. Discussed with nursing. Objective Vitals Vital Signs Date Time Temp Pulse Resp B/P (MAP) Pulse Ox O2 Delivery O2 Flow Rate FiO2 02/09/17 14:01 95 Nasal Cannula 3.00 02/09/17 08:00 97.1 95 18 136/62 (86) 95 02/09/17 04:00 98.2 91 16 127/64 (85) 95 02/09/17 00:00 97.7 109 20 131/65 (87) 95 02/08/17 22:24 93 Nasal Cannula 3.00 02/08/17 21:00 Nasal Cannula 3.00 02/08/17 20:00 96.3 107 18 140/69 (92) 97 02/08/17 16:00 95.3 81 18 120/67 (84) 98 I/O 02/08/17 02/08/17 02/08/17 02/09/17 02/09/17 02/09/17 07:00 15:00 23:00 07:00 15:00 23:00 Intake Total 220 ml 240 ml 680 ml 560 ml Output Total 330 ml 550 ml 550 ml 500 ml Balance -110 ml -310 ml 130 ml 60 ml Intake Oral 120 ml 240 ml 480 ml 360 ml IV Total 100 ml 200 ml 200 ml Output Urine Total 200 ml 250 ml 450 ml 350 ml Stool Total 100 ml 100 ml Drainage Total 130 ml 200 ml 150 ml Result Diagram: 02/08/17 0540 02/08/17 0540 Imaging Last Impressions Chest X-Ray 02/07/17 0000 Signed Impressions: Service Date/Time: Tuesday, February 07, 2017 11:40 - CONCLUSION: 1. Subsegmental consolidation at the lung bases. No significant effusion. No pneumothorax. Filiberto Brown MD Abdomen/Pelvis CT 02/01/17 2257 Signed Impressions: Service Date/Time: Wednesday, February 01, 2017 23:56 - CONCLUSION: 1. 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 No evidence of metastatic disease. 2. 1 cm hypodensity of the left hepatic lobe is most likely a cyst. Francis Zafar MD Abdomen X-Ray 02/01/17 0000 Signed Impressions: Service Date/Time: Wednesday, February 01, 2017 22:43 - CONCLUSION: Suspected colitis. Nonobstructive pattern. Francis Zafar MD Objective Remarks GENERAL: NAD, resting in bed. SKIN: Warm and dry. HEAD: Normocephalic. EYES: No scleral icterus. No injection or drainage. NECK: Supple, trachea midline. No JVD or lymphadenopathy. CARDIOVASCULAR: Regular rate and rhythm without murmurs, gallops, or rubs. RESPIRATORY: Mild bilateral wheezing appreciated. GASTROINTESTINAL: Abdomen soft, mildly tender, nondistended. Ostomy and surgical scars noted. MUSCULOSKELETAL: 1+ LE edema. BACK: Nontender without obvious deformity. No CVA tenderness. PSYCH: Mood and affect appropriate. Procedures Colonoscopy Colon surgery Medications and IVs Current Medications Medications (Trade) Dose Ordered Sig/Lizy Route Start Time Stop Time Status Last Admin Metronidazole 100 ml @ 100 mls/hr Q8H IV 02/02/17 10:00 02/09/17 11:15 (NS Flush) 2 ml UNSCH PRN IV FLUSH 02/02/17 01:45 (NS Flush) 2 ml BID IV FLUSH 02/02/17 09:00 02/09/17 11:15 (Zofran Inj) 4 mg Q6H PRN IVP 02/02/17 01:45 02/08/17 04:26 (Tylenol) 650 mg Q6H PRN PO 02/02/17 01:45 02/05/17 08:16 (Sulma-Colace) 1 tab BID PO 02/02/17 09:00 02/09/17 11:15 (Milk Of Magnesia Liq) 30 ml Q12H PRN PO 02/02/17 01:45 (Senokot) 17.2 mg Q12H PRN PO 02/02/17 01:45 (Dulcolax Supp) 10 mg DAILY PRN RECTAL 02/02/17 01:45 (Lactulose Liq) 30 ml DAILY PRN PO 02/02/17 01:45 (Duoneb Neb) 1 ampule Q4HR NEB PRN NEB 02/02/17 02:30 02/09/17 13:59 (Lopressor) 25 mg Q12H PO 02/05/17 11:00 02/09/17 11:15 (Lipitor) 20 mg HS PO 02/05/17 21:00 02/08/17 20:32 Doxycycline Hyclate 100 mg/ Sodium Chloride 100 ml @ 100 mls/hr Q12H IV 02/07/17 17:00 02/09/17 04:52 (Morphine Inj) 2 mg Q4H PRN IV 02/08/17 16:00 (Morphine Inj) 4 mg Q4H PRN IV 02/08/17 16:00 A/P Problem List: (1) Colitis ICD Code: K52.9 - Noninfective gastroenteritis and colitis, unspecified (2) Bowel obstruction ICD Code: K56.609 - Unspecified intestinal obstruction, unspecified as to partial versus complete obstruction (3) Colonic mass ICD Code: K63.9 - Disease of intestine, unspecified (4) Hypokalemia ICD Code: E87.6 - Hypokalemia Assessment and Plan Colitis CT Abd/Pelvis w/ mild colitis. Afebrile. WBC normal. S/p Cipro/Flagyl in ER. - continue w/ IV Abx. Changed to Flagyl and doxycycline. Bowel Obstruction H/o constipation for approx 1wk, +flatulence, CT Abd/Pelvis w/ suspected colon mass and obstruction. Colonoscopy with mass, s/p biopsies. Surgical consult appreciated. S/p surgery 02/05. - wound care and pain control per surgery. - follow pathology. - diet per surgery. Currently clear liquids. 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 S/p surgery. 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 - Follow up with surgery. Acute on chronic systolic CHF Echo with EF 30-35%. Currently on 2L NC. Exacerbated by IVFs received for above conditions. - D/c Lasix 20 mg IV BID. - resume Lopressor and statin. - Duonebs. - IS. - PT/ OT. Hypokalemia Stable. - D/c IVFs with KCl. - follow BMP and replete as needed. Hypotension/ tachycardia Resolved with rest. EKG unchanged. Trops negative x 3. - telemetry. - fluids as needed. Pneumonia Consolidation noted at the bases. Leukocytosis resolved. - change antibiotics to doxycycline and Flagyl IV. - check sputum culture. DVT Prophylaxis: SCD/Teds. Discharge Planning Discharged to SNF when cleared by general surgery. Problem Qualifiers (1) Bowel obstruction: Qualified Codes: K56.609 - Unspecified intestinal obstruction, unspecified as to partial versus complete obstruction Dwain Tolbert DO Feb 09, 2017 14:35
[2017-02-09] MEDS: ACETAMINOPHEN/HYDROcodone 325 MG/5 MG TAB PO PRN (19:31)
[2017-02-09] MEDS: ATORVASTATIN 20 MG TAB PO SCH (21:15)
[2017-02-10] VITALS (8 sets, daily range): BP systolic 103–126; BP diastolic 49–66; PULSE 77–111; RESP 17–18; TEMP 96.4–97.6; O2SAT 93–97
[2017-02-10] MEDS: METOPROLOL TARTRATE 25 MG TAB PO SCH ×3 (00:01→22:24)
[2017-02-10] MEDS: ACETAMINOPHEN/HYDROcodone 325 MG/5 MG TAB PO PRN ×4 (00:01→20:14)
[2017-02-10] MEDS: metroNIDAZOLE 500 MG INJ 100 ML IV SCH ×2 (02:22→09:42)
[2017-02-10] MEDS: DOXYCYCLINE INJ 100 MG in SODIUM CHLORIDE 0.9% INJ 100 ML IV SCH (04:47)
[2017-02-10 06:28] LABS: BICARBONATE 34.2 MEQ/L (21.0-32.0); POTASSIUM 3.1 MEQ/L (3.5-5.1)
[2017-02-10] MEDS: SODIUM CHLORIDE 0.9% FLUSH 10 ML FLUSH IV FLUSH SCH ×2 (08:26→20:24)
[2017-02-10] MEDS: DOCUSATE SODIUM 50 MG/SENNA 8.6 MG TAB PO SCH ×2 (08:26→20:14)
--- NOTE | 2017-02-10 10:37 | HHI.PR ---
Subjective Subjective Notes Resting in bed Feeling hungry; wants soup for lunch Objective Vitals/I&O Vital Signs Date Time Temp Pulse Resp B/P (MAP) Pulse Ox O2 Delivery O2 Flow Rate FiO2 02/10/17 09:38 16 02/10/17 08:00 96.4 77 106/59 (75) 94 02/09/17 19:00 Nasal Cannula 3.00 Labs Laboratory Tests Test 02/10/17 05:30 Blood Urea Nitrogen 10 Creatinine 0.46 Random Glucose 118 Calcium Level 8.0 Phosphorus Level 2.5 Magnesium Level 2.0 Sodium Level 139 Potassium Level 3.1 Chloride Level 100 Carbon Dioxide Level 34.2 Anion Gap 5 Estimat Glomerular Filtration Rate 130 Date/Time Source Procedure Growth Status 02/02/17 01:00 Urine Clean Catch Urine Culture - Final 50-100,000 CFU/ML MIXED KARLA... Complete Radiology Last Impressions Abdomen/Pelvis CT 02/01/172256 Signed Impressions: Service Date/Time: Wednesday, February 01, 2017 23:56 - CONCLUSION: 1. 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 No evidence of metastatic disease. 2. 1 cm hypodensity of the left hepatic lobe is most likely a cyst. Francis Zafar MD Chest X-Ray 02/01/172152 Signed Impressions: Service Date/Time: Wednesday, February 01, 2017 22:42 - CONCLUSION: Very mild bibasilar atelectasis and borderline cardiomegaly. Francis Zafar MD Abdomen X-Ray 02/01/17 0000 Signed Impressions: Service Date/Time: Wednesday, February 01, 2017 22:43 - CONCLUSION: Suspected colitis. Nonobstructive pattern. Francis Zafar MD Cardiovascular: Regular Lungs: Clear Abdomen: Other (incision c/d/i; EMERY with serosanguineous drainage; colostomy with pink stoma---stool in collection bag ) Extremities: No edema A/P Assessment and Plan 81 year old female with high grade distal colon obstruction, likely malignant; POD5 dx lap; open sigmoid resection; end colostomy -Advance to regular soft diet -OOB and mobilize -Pathology--- moderately differentiated adenocarcinoma -Pain control -GS clear for DC -Will need to follow up with Medical Oncology as outpatient -Follow up in [address] Oneal Attending Statement The exam, history, and the medical decision-making described in the above note were completed with the assistance of the mid-level provider. I reviewed and agree with the findings presented. I attest that I had a [id number] encounter with the patient on the same day, and personally performed and documented my assessment and findings in the medical record. patient stable postop, pain controlled abdominal exam stable postop, no peritonitis, ostomy pink/viable Katelyn Law Feb 10, 2017 10:37 Ricardo Oneal MD Feb 13, 2017 18:13
--- NOTE | 2017-02-10 10:53 | HHI.DCPOC ---
Discharge Care Plan Diagnosis: (1) Colonic mass (2) Bowel obstruction Goals to Promote Your Health * To prevent worsening of your condition and complications * To maintain your health at the optimal level Directions to Meet Your Goals Take your medications as prescribed Follow your dietary instruction Follow activity as directed Keep your appointments as scheduled Take your immunizations and boosters as scheduled If your symptoms worsen call your PCP, if no PCP go to Urgent Care Center or Emergency Room Smoking is Dangerous to Your Health. Avoid second hand smoke Call the 24-hour hour crisis hotline for domestic abuse at Jemma Swift MD Feb 10, 2017 10:53
--- NOTE | 2017-02-10 10:53 | HHI.PR ---
Subjective Remarks Patient seen in follow-up for colonic obstruction with known mass and now status post resection Lynda Snell, pain improved with pain meds Objective Vitals Vital Signs Date Time Temp Pulse Resp B/P (MAP) Pulse Ox O2 Delivery O2 Flow Rate FiO2 02/10/17 09:38 16 02/10/17 08:00 96.4 77 18 106/59 (75) 94 02/10/17 04:50 97.0 87 18 107/63 (78) 93 02/10/17 00:45 97.5 111 18 126/64 (84) 94 02/09/17 20:35 97.1 98 18 126/59 (81) 93 02/09/17 19:00 Nasal Cannula 3.00 02/09/17 16:00 96.6 100 18 120/67 (84) 94 02/09/17 14:01 95 Nasal Cannula 3.00 02/09/17 12:00 97.2 77 18 144/70 (94) 93 I/O 02/09/17 02/09/17 02/09/17 02/10/17 02/10/17 02/10/17 07:00 15:00 23:00 07:00 15:00 23:00 Intake Total 560 ml 480 ml 240 ml 240 ml Output Total 500 ml 400 ml 75 ml 75 ml Balance 60 ml 80 ml 165 ml 165 ml Intake Oral 360 ml 480 ml 240 ml 240 ml IV Total 200 ml Output Urine Total 350 ml 200 ml Stool Total 120 ml Drainage Total 150 ml 80 ml 75 ml 75 ml # Voids 1 2 # Bowel Movements 0 0 Result Diagram: 02/08/17 0540 02/10/17 0530 Objective Remarks GENERAL: This is a well-nourished, well-developed patient, in no apparent distress. CARDIOVASCULAR: Regular rate and rhythm without murmurs, gallops, or rubs. RESPIRATORY: Clear to auscultation. Breath sounds equal bilaterally. No wheezes , rales, or rhonchi. GASTROINTESTINAL: Ostomy in place, surgical scars noted, otherwise Abdomen soft , non-tender, nondistended. Normal active bowel sounds MUSCULOSKELETAL: Extremities without clubbing, cyanosis, improved edema NEURO: Alert & Oriented x4 to person, place, time, situation. Moves all ext x4 Procedures Colonoscopy Colon surgery A/P Problem List: (1) Bowel obstruction ICD Code: K56.609 - Unspecified intestinal obstruction, unspecified as to partial versus complete obstruction Plan: Secondary to colonic mass, status post resection. 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 General surgery following Assessment ostomy IV abx completed (2) Acute exacerbation of CHF (congestive heart failure) ICD Code: I50.9 - Heart failure, unspecified Plan: Patient with mild exacerbation of chronic systolic heart failure (EF 30 35%) status post IV Lasix with diuresis Continue Lopressor and statin (3) Hypokalemia ICD Code: E87.6 - Hypokalemia Plan: Continue replacement Discharge Planning Continue with OT rehabilitation Problem Qualifiers (1) Bowel obstruction: Qualified Codes: K56.609 - Unspecified intestinal obstruction, unspecified as to partial versus complete obstruction Jemma Swift MD Feb 10, 2017 10:53
[2017-02-10] MEDS ORDERED: HYDR-3516 PO (11:14)
--- NOTE | 2017-02-10 11:19 | HHI.DS ---
Discharge Summary Admission Date Feb 02, 2017 at 01:40 Discharge Date: Feb 10, 2017 Admitting Diagnosis Colon Mass; Poss Colitis; Partial Obstruction (1) Bowel obstruction ICD Code: K56.609 - Unspecified intestinal obstruction, unspecified as to partial versus complete obstruction (2) Acute exacerbation of CHF (congestive heart failure) ICD Code: I50.9 - Heart failure, unspecified (3) Hypokalemia ICD Code: E87.6 - Hypokalemia Procedures Colonoscopy Colon resection Brief History - From Admission This is an 81-year-old female with a PMH of HTN, Hyperlipidemia and CHF (Echo w/ EF 45-50%) who presented to the ER w/ complaints of abdominal pain and constipation for approx 1wk. [facility]en [facility] yesterday for similar symptoms and prescribed Linzess w/ no improvement. +flatulence. Denies fever, chills, nausea or vomiting. On arrival, BP 126/64, HR 103, O2 sat 92% on RA, Afebrile. CBC unremarkable. Chemistry unremarkable except for GFR 74. K+ 3.0. UA w/ bacteriuria. CXR with mild basilar atelectasis. Abdominal X-ray suspected colitis, nonobstructive pattern. 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 S/p Cipro/Flagyl in ER. CBC/BMP: 02/08/17 0540 02/10/17 0530 Significant Findings Laboratory Tests Test 02/07/17 13:03 02/07/17 19:48 02/08/17 05:40 02/10/17 05:30 Potassium Level 3.4 MEQ/L (3.5-5.1) 3.1 MEQ/L (3.5-5.1) Carbon Dioxide Level 32.3 MEQ/L (21.0-32.0) 34.2 MEQ/L (21.0-32.0) Creatinine 0.46 MG/DL (0.50-1.00) Random Glucose 118 MG/DL (74-106) Calcium Level 8.0 MG/DL (8.5-10.1) Imaging Last Impressions Chest X-Ray 02/07/17 0000 Signed Impressions: Service Date/Time: Tuesday, February 07, 2017 11:40 - CONCLUSION: 1. Subsegmental consolidation at the lung bases. No significant effusion. No pneumothorax. Filiberto Brown MD Abdomen/Pelvis CT 02/01/17 2257 Signed Impressions: Service Date/Time: Wednesday, February 01, 2017 23:56 - CONCLUSION: 1. 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 No evidence of metastatic disease. 2. 1 cm hypodensity of the left hepatic lobe is most likely a cyst. Francis Zafar MD Abdomen X-Ray 02/01/17 0000 Signed Impressions: Service Date/Time: Wednesday, February 01, 2017 22:43 - CONCLUSION: Suspected colitis. Nonobstructive pattern. Francis Zafar MD PE at Discharge GENERAL: This is a well-nourished, well-developed patient, in no apparent distress. CARDIOVASCULAR: Regular rate and rhythm without murmurs, gallops, or rubs. RESPIRATORY: Clear to auscultation. Breath sounds equal bilaterally. No wheezes , rales, or rhonchi. GASTROINTESTINAL: Ostomy in place, surgical scars noted, otherwise Abdomen soft , non-tender, nondistended. Normal active bowel sounds MUSCULOSKELETAL: Extremities without clubbing, cyanosis, improved edema NEURO: Alert & Oriented x4 to person, place, time, situation. Moves all ext x4 Pt update on day of discharge Patient seen today See progress note Hospital Course This is a 1-year-old female who was evaluated for colonic obstruction. She is found to have a mass. Surgical resection margins were clear and only 1 lymph node was positive on biopsy. Patient did have ostomy placed after resection. She had a good control of her pain once medications were given. She had empiric antibiotics which were continued throughout hospital stay. She was discharged to rehabilitation facility Pt Condition on Discharge: Good Discharge Disposition: Discharge to SNF Discharge Time: > 30 minutes Discharge Instructions DIET: Follow Instructions for: As Tolerated, No Restrictions Activities you can perform: Regular-No Restrictions Follow up Referrals: Surgical - 2 Weeks with Ricardo Oneal MD New Medications: Hydrocodone/Acetaminophen (Hydrocodone-Acetamin 5-325 mg) 5 Mg-325 Mg Tablet 1 TAB PO Q4H PRN for pain 3-10, #30 TAB Continued Medications: Atorvastatin (Atorvastatin) 20 Mg Tab 20 MG PO HS for Cholesterol Management, #30 TAB 0 Refills Clopidogrel (Plavix) 75 Mg Tab 75 MG PO HS for Blood Clot Prevention, #30 TAB 0 Refills Linaclotide (Linzess) 145 Mcg Cap 145 MCG PO DAILY, CAP 0 Refills Metoprolol Tartrate (Metoprolol Tartrate) 25 Mg Tab 25 MG PO DAILY, #30 TAB 0 Refills Jemma Swift MD Feb 10, 2017 11:19
[2017-02-10] MEDS: POTASSIUM CHLORIDE 25 MEQ EFFERVESCENT TAB PO SCH ×2 (11:21→20:13)
[2017-02-10] MEDS: ONDANSETRON HCL 4 MG/2 ML VIAL IVP PRN (14:13)
[2017-02-10] MEDS: ATORVASTATIN 20 MG TAB PO SCH (20:13)
[2017-02-10] MEDS ORDERED: CLOPIDOGREL 75 MG TAB PO SCH (21:00)
[2017-02-10] MEDS: RESP: ALBUTEROL 2.5 MG/IPRATROPIUM 0.5 MG NEB (PRN) NEB (21:55)
[2017-02-11 03:38] VITALS: BP 123/61; PULSE 88; RESP 18; TEMP 97.9; O2SAT 95
[2017-02-11] MEDS: ACETAMINOPHEN/HYDROcodone 325 MG/5 MG TAB PO PRN ×2 (06:15→16:13)
[2017-02-11 08:00] VITALS: BP 106/66; PULSE 105; RESP 17; TEMP 96.8; O2SAT 91
[2017-02-11] MEDS: POTASSIUM CHLORIDE 25 MEQ EFFERVESCENT TAB PO SCH (09:00)
[2017-02-11 10:20] VITALS: O2SAT 95
[2017-02-11] MEDS: DOCUSATE SODIUM 50 MG/SENNA 8.6 MG TAB PO SCH (10:48)
[2017-02-11] MEDS: METOPROLOL TARTRATE 25 MG TAB PO SCH (10:48)
[2017-02-11] MEDS: SODIUM CHLORIDE 0.9% FLUSH 10 ML FLUSH IV FLUSH SCH (10:49)
--- NOTE | 2017-02-11 11:31 | PD.WCN.NOT ---
Wound Consult Description: Consulted for NEW OSTOMY TEACHING per Dr Oneal Communicated with: Patient MING Sandhu Recommendation: Empty pouch when 1/3-1/2 full Change ostomy appliance every 5-7 days and PRN before leaks occur using 2 3/4" moldable or cut to fit wafer. Additional Information: Patient seen on [address] [place] [address] for ostomy assessment, changing of appliance, and teaching of new ostomy located on left lower abdomen. Ostomy Type: Colostomy Surgeon: Ricardo Oneal MD Date of Surgery: Feb 05, 2017 Complete: Education materials (ConvaTec kit left in patient room.), Rx (Left on chart today.) Educated patient on: Stoma size Stoma appearance Function of stoma Output consistency of stoma due to location Changing ostomy appliance every 5-7 days Emptying pouch of effluent when 1/3-1/2 full Peristomal skin care Measuring stoma over the next 6-8 weeks Script left on chart to obtain appliances in correct size once patient is discharged Letting the air out of the pouch to avoid spontaneous lifting and removal of wafer/pouch Additional information Patient seen on [address] [place] [address] for ostomy assessment, appliance change, and teaching of new descending colostomy located on the left lower abdomen. Patient was sitting up in chair upon arrival. Wafer was visualized and noted to beginning to leak at 3 o'clock. Patient demonstrated that she could open and close the top of the pouch to let the air out of the pouch of needed. BODY DESIGN CHECKER was called for assistance in placing patient back in bed for comfort.was removed at this time as patient is possibly being discharged today to a SNF. Stoma was measuring 55mm , round, moderately protruding, red, moist, functioning with flatus and soft brown stool from lumen noted at 7-8 o'clock. Mucocutaneous junction is noted with circumferential sutures in place otherwise unremarkable. Peristomal skin is erythematous without any open areas. Peristomal skin was cleansed with water and pat dry using washcloth. Coloplast wafer was cut to fit around stoma and applied to clean dry skin with two gloved hands warming appliance after application. Pouch was applied and bottom was folded and closed using velcro closure tabs. There are 2 cut to fit appliances available in patient room for next wafer/pouch change. ConvaTec moldable appliance size 2 3/4" on back order and unavailable at this time. Megha Pierre [facility] Feb 11, 2017 11:31
[2017-02-11 12:00] VITALS: BP 122/60; PULSE 90; RESP 17; TEMP 97.2; O2SAT 97
[2017-02-11] MEDS ORDERED: POTASSIUM CHLORIDE 20 MEQ CONTROLLED RELEASE TAB PO SCH (12:30)
--- NOTE | 2017-02-11 13:00 | HHI.PR ---
Subjective Remarks Patient seen and evaluated today in follow-up for discharge planning. Some nausea this morning which is improved with antiemetics. Patient's potassium is low and requires replacement Objective Vitals Vital Signs Date Time Temp Pulse Resp B/P (MAP) Pulse Ox O2 Delivery O2 Flow Rate FiO2 02/11/17 12:00 97.2 90 17 122/60 (80) 97 02/11/17 10:20 95 Nasal Cannula 3.00 02/11/17 08:00 96.8 105 17 106/66 (79) 91 02/11/17 03:38 97.9 88 18 123/61 (81) 95 02/10/17 23:20 97.6 86 18 103/49 (67) 95 02/10/17 21:58 97 Nasal Cannula 3.00 02/10/17 20:15 Nasal Cannula 3.00 02/10/17 19:17 97.1 93 17 116/60 (78) 95 02/10/17 16:00 96.6 92 18 121/66 (84) 95 I/O 02/10/17 02/10/17 02/10/17 02/11/17 02/11/17 02/11/17 07:00 15:00 23:00 07:00 15:00 23:00 Intake Total 240 ml 480 ml 480 ml Output Total 75 ml 50 ml 98 ml Balance 165 ml -50 ml 382 ml 480 ml Intake Oral 240 ml 480 ml 480 ml Stool Total 50 ml Drainage Total 75 ml 98 ml # Voids 2 1 3 4 # Bowel Movements 0 1 1 Result Diagram: 02/08/17 0540 02/10/17 0530 Objective Remarks GENERAL: This is a well-nourished, well-developed patient, in no apparent distress. CARDIOVASCULAR: Regular rate and rhythm without murmurs, gallops, or rubs. RESPIRATORY: Clear to auscultation. Breath sounds equal bilaterally. No wheezes , rales, or rhonchi. GASTROINTESTINAL: Ostomy in place, surgical scars noted, otherwise Abdomen soft , non-tender, nondistended. Normal active bowel sounds MUSCULOSKELETAL: Extremities without clubbing, cyanosis, improved edema NEURO: Alert & Oriented x4 to person, place, time, situation. Moves all ext x4 Procedures Colonoscopy Colon resection A/P Problem List: (1) Bowel obstruction ICD Code: K56.609 - Unspecified intestinal obstruction, unspecified as to partial versus complete obstruction Plan: Secondary to colonic mass, status post resection. 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 Continue ostomy care Outpatient oncology follow-up (2) Acute exacerbation of CHF (congestive heart failure) ICD Code: I50.9 - Heart failure, unspecified Plan: Resolved Patient with mild exacerbation of chronic systolic heart failure (EF 30 35%) status post IV Lasix with diuresis Continue Lopressor and statin (3) Hypokalemia ICD Code: E87.6 - Hypokalemia Plan: Continue replacement Discharge Planning Plans for discharge to rehabilitation when bed available Problem Qualifiers (1) Bowel obstruction: Qualified Codes: K56.609 - Unspecified intestinal obstruction, unspecified as to partial versus complete obstruction Jemma Switf MD Feb 11, 2017 13:00
== END 2017-02-11 16:33 | DRG 329 ==
LOC: NEPE 21:40 → PHEDA 02-02 01:40 → NEDA 02-02 02:22 → N06A 02-02 04:16
PROVIDERS: ADMIT Hospitalist; ATTEND Hospitalist
PROC: 0DBN8ZX Excision of Sigmoid Colon, Via Natural or Artificial Opening Endoscopic, Diagnostic (ICD-10-PCS; 2017-02-03)
PROC: 0WJP4ZZ Inspection of Gastrointestinal Tract, Percutaneous Endoscopic Approach (ICD-10-PCS; 2017-02-05)
PROC: 0WJJ4ZZ Inspection of Pelvic Cavity, Percutaneous Endoscopic Approach (ICD-10-PCS; 2017-02-05)
PROC: 0D1N0Z4 Bypass Sigmoid Colon to Cutaneous, Open Approach (ICD-10-PCS; 2017-02-05)
PROC: 07BC0ZX Excision of Pelvis Lymphatic, Open Approach, Diagnostic (ICD-10-PCS; 2017-02-05)
PROC: 0DTN0ZZ Resection of Sigmoid Colon, Open Approach (ICD-10-PCS; principal; 2017-02-05 19:12)
DX: C18.7 Malignant neoplasm of sigmoid colon (principal); I50.23 Acute on chronic systolic (congestive) heart failure; J18.9 Pneumonia, unspecified organism; C77.2 Secondary and unspecified malignant neoplasm of intra-abdominal lymph nodes; K56.690 Other partial intestinal obstruction; I11.0 Hypertensive heart disease with heart failure; J44.0 Chronic obstructive pulmonary disease with (acute) lower respiratory infection; J98.11 Atelectasis; K52.9 Noninfective gastroenteritis and colitis, unspecified; E87.6 Hypokalemia; I25.2 Old myocardial infarction; G47.30 Sleep apnea, unspecified; E78.5 Hyperlipidemia, unspecified; I25.10 Atherosclerotic heart disease of native coronary artery without angina pectoris; Z87.11 Personal history of peptic ulcer disease; Z95.5 Presence of coronary angioplasty implant and graft; Z53.31 Laparoscopic surgical procedure converted to open procedure; N73.6 Female pelvic peritoneal adhesions (postinfective)
CPT/HCPCS: 71010; 74020; 74176; 80048; 80053; 81001; 82378; 82948; 83605; 83690; 83735; 84100; 84484; 85025; 85027; 87086; 88305; 88307; 88309; 93005; 93308; 94150; 94640; 94664; 96360; J0744; J1940; J2270; J2405; J3480; J7030; J7040; J7042; J7120

== ENCOUNTER 2017-02-18 15:49 | Emergency (ER) | payer MEDICARE, MEDICAID ==
[~2017-02-18] VITALS: Ht 172.7 cm; Wt 86.4 kg
[~2017-02-18 15:49] MED LIST changes: -ASPI325T PO; +ATOR20TA15 PO; +HYDR-3516 PO; +LINA145C PO; -LORTA5 PO; +METO25TA3 PO; +PLAV75TA29 PO
[2017-02-18 15:52] VITALS: BP 144/67; PULSE 107; RESP 14; TEMP 98.9; O2SAT 95
[2017-02-18 16:20] VITALS: BP 118/66; PULSE 97; RESP 15; O2SAT 93
--- NOTE | 2017-02-18 16:27 | PD ---
HPI Chief Complaint: Abdominal Pain Time Seen by Provider: 16:06 Travel History International Travel<30 days: No Contact w/Intl Traveler<30days: No Traveled to known affect area: No History of Present Illness HPI 81yo F with PMH of HTN, HLD, CHF presents to the ED for wound check. Pt had resection of sigmoid mass on 02/05/[address] Oneal and it showed adenocarcinoma. Pt was recently discharged from rehab and does not know what to do with the wound. She is here for wound check and staple removal and said that her primary care physician told her to come to the ED. Denies any fever, chest pain, sob, n/v, abdominal pain. PFSH Past Medical History Hx Anticoagulant Therapy: Yes (plavix) Arthritis: No Asthma: Yes Heart Rhythm Problems: No Cancer: Yes (COLON CANCER) Cardiovascular Problems: Yes (stent 4 years ago) High Cholesterol: Yes Chest Pain: No Congestive Heart Failure: Yes COPD: No Diminished Hearing: No Endocrine: No Gastrointestinal Disorders: Yes Genitourinary: No Hypertension: Yes Immune Disorder: No Musculoskeletal: No Neurologic: No Psychiatric: No Reproductive: No Respiratory: Yes (asthma) Myocardial Infarction: Yes Sleep Apnea: Yes Menopausal: Yes : 9 Para: 9 Past Surgical History Abdominal Surgery: No Cardiac Surgery: Yes (STENT) Ear Surgery: No Endocrine Surgery: No Eye Surgery: Yes (RIGHT EYE REMOVED CATARACTS) Genitourinary Surgery: Yes (COLOSTOMY, COLON REMOVED) Gynecologic Surgery: No Oral Surgery: No Thoracic Surgery: No Other Surgery: Yes Social History Alcohol Use: No Tobacco Use: No Substance Use: No Allergies-Medications (Allergen,Severity, Reaction): Coded Allergies: penicillin G (Unverified Allergy, Severe, 02/18/17) Reported Meds & Prescriptions Reported Meds & Active Scripts Active Hydrocodone-Acetamin 5-325 mg (Hydrocodone/Acetaminophen) 5 Mg-325 Mg Tablet 1 Tab PO Q4H PRN Reported Linzess (Linaclotide) 145 Mcg Cap 145 Mcg PO DAILY Plavix (Clopidogrel Bisulfate) 75 Mg Tab 75 Mg PO HS Atorvastatin (Atorvastatin Calcium) 20 Mg Tab 20 Mg PO HS Metoprolol Tartrate 25 Mg Tab 25 Mg PO DAILY Review of Systems Except as stated in HPI: all other systems reviewed are Neg Physical Exam Narrative GENERAL: 81yo F not in distress. SKIN: Focused skin assessment warm/dry. HEAD: Atraumatic. Normocephalic. CARDIOVASCULAR: Regular rate and rhythm. No murmur appreciated. RESPIRATORY: No accessory muscle use. Clear to auscultation. Breath sounds equal bilaterally. GASTROINTESTINAL: Abdomen soft, +Midline surgical incision site. Drea intact. No purulent discharge. Mild erythema wound edges. Not tender to palpation. MUSCULOSKELETAL: No obvious deformities. No clubbing. No cyanosis. No edema. NEUROLOGICAL: Awake and alert. No obvious cranial nerve deficits. Motor grossly within normal limits. Normal speech. PSYCHIATRIC: Appropriate mood and affect; insight and judgment normal. Data Data Last Documented VS Vital Signs Date Time Temp Pulse Resp B/P (MAP) Pulse Ox O2 Delivery O2 Flow Rate FiO2 02/18/17 16:20 97 15 118/66 (83) 93 Room Air 02/18/17 15:52 98.9 Orders Orders Colostomy Kit 2 3/4" Moldable (02/18/17 17:11) Consult General Surgery (02/18/17 ) (Hub Use Only)Inp Phy Cons/Ref (02/18/17 ) Ed Discharge Order (02/18/17 18:58) MDM Medical Decision Making Medical Screen Exam Complete: Yes Emergency Medical Condition: Yes Differential Diagnosis Wound check vs. post op infection Narrative Course 81yo F who is well appearing here for wound check because she does not know when to follow up with Dr. Oneal. Dr. Oneal is concrete paving supervisor today and came to the ED to evaluate the patient. He removed the drea and placed steri strip. Colostomy bag nurse also educted patient. Return precautions given. Diagnosis Primary Impression: Encounter for wound care Referrals: Ricardo Oneal MD call for appointment Patient Instructions: General Instructions Departure Forms: Tests/Procedures Additional Instructions: Please follow up with Dr. Oneal in 1-2 weeks. Return to the ED if any signs of infection. Med/Other Pt SpecificInfo: No Change to Meds Disposition: 01 DISCHARGE HOME Condition: Stable Brittni Santos DO Feb 18, 2017 16:27
--- NOTE | 2017-02-18 17:47 | PD.WCN.NOT ---
Wound Consult Description: Received request from ALEENA Law for ostomy teaching and appliance change per patient and granddaughter Communicated with: Patient Granddaughter ALEENA Law Recommendation: Empty pouch when 1/3-1/2 full Change appliance every 5-7 days and PRN before leaks occur Additional Information: Patient seen in [facility] for ostomy teaching and appliance change using 2 3/4" wafer and pouch obtained from [facility] Ostomy Type: Colostomy Surgeon: Ricardo Oneal MD Date of Surgery: Feb 05, 2017 Complete: Other (Appliance change with teaching) Educated patient on: Changing appliance every 5-7 days and PRN before leaks occur Emptying pouch when 1/3-1/2 full Skin care Additional information Patient seen in [facility] for appliance change with education. Coloplast appliance intact on patient left side abdomen is the same appliance manual writer placed on 02/11 prior to discharge. Coloplast cut to fit appliance was removed using adhesive removal wipes. Peristomal skin was cleansed with water and gauze and then dried with dry gauze. Peristomal skin is unremarkable. Cavilon skin prep was used on the peristomal skin and allowed to dry prior to placing moldable 2 piece ConvaTec 2 3/4" appliance. Gloved hands used to warm the appliance once it was placed over stoma measuring 2" round, red, moist, moderately protruding, functioning with mucus and brown soft and liquid effluent. Megha Pierre [facility] Feb 18, 2017 17:47
== END 2017-02-18 19:35 | disposition home or self-care (01) ==
LOC: NEPC 15:49
DX: C18.7 Malignant neoplasm of sigmoid colon (principal); E78.00 Pure hypercholesterolemia, unspecified; I11.0 Hypertensive heart disease with heart failure; I50.9 Heart failure, unspecified; Z48.01 Encounter for change or removal of surgical wound dressing
CPT/HCPCS: 99283

== ENCOUNTER 2017-02-20 15:04 | Observation (INO) | payer MEDICARE, MEDICAID ==
[~2017-02-20] VITALS: Ht 170.2 cm; Wt 80.0 kg
[2017-02-20 15:20] VITALS: BP 118/63; PULSE 87; RESP 17; TEMP 98.7; O2SAT 98
[2017-02-20] MEDS ORDERED: AZIT500T2 PO (15:53)
[2017-02-20] MEDS ORDERED: DOXY1CAP74 PO (15:53)
[2017-02-20] MEDS ORDERED: MECL12.574 PO (15:53)
--- NOTE | 2017-02-20 17:10 | RADRPT ---
EXAM DATE/TIME: 02/20/2017 16:59 [facility] COMPARISON: CHEST SINGLE AP, February 07, 2017, 11:40. INDICATIONS : Cough and shortness of breath. MEDICAL HISTORY : Hypertension. Hypercholesterolemia. Congestive heart failure. Asthma. SURGICAL HISTORY : Cardiac stent. ENCOUNTER: Initial ACUITY: 1 day PAIN SCORE: 0/10 LOCATION: Bilateral chest FINDINGS: Mild right lung base atelectasis and/or infiltrate is seen. There is slight atelectasis left lung bas e and overall improvement in aeration of left lung base. Heart and mediastinum are unremarkable for t echnique. CONCLUSION: Slight bibasilar atelectasis and/or infiltrate is seen. Brandi Mclean MD on February 20, 2017 at 17:07 Board Certified Radiologist. This report was verified electronically.
[2017-02-20 17:14] LABS: AUTOMATED NEUTROPHIL # 5.3 TH/MM3 (1.8-7.7); BASOPHIL # 0.1 TH/MM3 (0-0.2); BASOPHIL % 0.8 % (0.0-2.0); EOSINOPHIL # 0.4 TH/MM3 (0-0.4); EOSINOPHIL % 4.6 % (0.0-4.0); HEMOGLOBIN 11.6 GM/DL (11.6-15.3); LYMPH % 22.7 % (9.0-44.0); LYMPHOCYTE # 1.9 TH/MM3 (1.0-4.8); MEAN CORPUSCULAR HEMOGLOBIN 31.2 PG (27.0-34.0); MEAN CORPUSCULAR HGB CONC 33.2 % (32.0-36.0); MEAN PLATELET VOLUME 9.2 FL (7.0-11.0); MONO % 9.8 % (0.0-8.0); MONOCYTE # 0.8 TH/MM3 (0-0.9); NEUT % 62.1 % (16.0-70.0); PLATELET COUNT 344 TH/MM3 (150-450); RED BLOOD COUNT 3.73 MIL/MM3 (4.00-5.30); RED CELL DISTRIBUTION WIDTH 14.7 % (11.6-17.2); WHITE BLOOD COUNT 8.5 TH/MM3 (4.0-11.0)
[2017-02-20 17:24] LABS: INTERNATIONAL NORMALIZED RATIO 1.1 RATIO; PROTHROMBIN TIME - PATIENT 11.5 SEC (9.8-11.6)
--- NOTE | 2017-02-20 19:41 | PD ---
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 Lay on 02/07/17, on an antibiotic for bronchitis/pneumonia, however she cannot recall the name of the medication, here for evaluation of feeling hot and cold and feeling as though she may pass out shortness of breath, cough, as well as left flank and abdominal pain. She is not sure if she has had a fever. Abdominal pain is cramping, mild to moderate, worse with movements. Symptoms started today, onset gradual. PFSH Past Medical History Hx Anticoagulant Therapy: Yes (plavix) Arthritis: No Asthma: Yes Heart Rhythm Problems: No Cancer: Yes (HX COLON) Cardiovascular Problems: Yes (stent 4 years ago) High Cholesterol: Yes Chest Pain: No Congestive Heart Failure: Yes COPD: No Diminished Hearing: No Endocrine: No Gastrointestinal Disorders: Yes Genitourinary: No Hypertension: Yes Immune Disorder: No Musculoskeletal: No Neurologic: No Psychiatric: No Reproductive: No Respiratory: Yes (asthma) Myocardial Infarction: Yes Sleep Apnea: Yes Tetanus Vaccination: Unknown Influenza Vaccination: No Menopausal: Yes : 9 Para: 9 Past Surgical History Abdominal Surgery: No Cardiac Surgery: Yes (STENT) Coronary Stent: Yes Ear Surgery: No Endocrine Surgery: No Eye Surgery: Yes (RIGHT EYE REMOVED CATARACTS) Genitourinary Surgery: Yes (COLOSTOMY, COLON REMOVED) Gynecologic Surgery: No Oral Surgery: No Thoracic Surgery: No Other Surgery: Yes Social History Alcohol Use: No Tobacco Use: No Substance Use: No Allergies-Medications (Allergen,Severity, Reaction): Coded Allergies: penicillin G (Unverified Allergy, Severe, 02/18/17) Reported Meds & Prescriptions Reported Meds & Active Scripts Active Hydrocodone-Acetamin 5-325 mg (Hydrocodone/Acetaminophen) 5 Mg-325 Mg Tablet 1 Tab PO Q4H PRN Reported Azithromycin 500 Mg Tab 500 Mg PO DAILY Doxycycline 40 Mg Cap 40 Mg PO DAILY Meclizine (Meclizine HCl) 12.5 Mg Tab 12.5 Mg PO TID PRN Plavix (Clopidogrel Bisulfate) 75 Mg Tab 75 Mg PO HS Atorvastatin (Atorvastatin Calcium) 20 Mg Tab 20 Mg PO HS Metoprolol Tartrate 25 Mg Tab 25 Mg PO DAILY Review of Systems Except as stated in HPI: all other systems reviewed are Neg Physical Exam Narrative GENERAL: Well-developed, well-nourished, comfortable, no apparent distress. SKIN: Focused skin assessment warm/dry. No rash. HEAD: Atraumatic. Normocephalic. EYES: Pupils equal and round. No scleral icterus. No injection or drainage. ENT: Mucous membranes pink and moist. NECK: Trachea midline. No JVD. CARDIOVASCULAR: Regular rate and rhythm. No murmur appreciated. RESPIRATORY: No accessory muscle use. Clear to auscultation. Breath sounds equal bilaterally. GASTROINTESTINAL: Abdomen soft, nondistended. Left lower abdomen with diverting colostomy with brown stool output. There is a midline lower abdominal vertical surgical incision with Steri-Strips in place that appears to be well-healing without warmth or erythema. Mild diffuse abdominal tenderness without peritoneal signs. MUSCULOSKELETAL: No obvious deformities. No clubbing. No cyanosis. No edema. Mild left flank tenderness. NEUROLOGICAL: Awake and alert. No obvious cranial nerve deficits. Motor grossly within normal limits. Normal speech. PSYCHIATRIC: Appropriate mood and affect; insight and judgment normal. Data Data Last Documented VS Vital Signs Date Time Temp Pulse Resp B/P (MAP) Pulse Ox O2 Delivery O2 Flow Rate FiO2 02/20/17 21:00 98.9 02/20/17 19:46 82 18 100 Nasal Cannula 2.00 Orders Orders Chest, Single Ap (02/20/17 ) Complete Blood Count With Diff (02/20/17 16:41) Act Partial Throm Time (Ptt) (02/20/17 16:41) Prothrombin Time / Inr (Pt) (02/20/17 16:41) Lipase (02/20/17 19:38) Ct Abd/Pel W Iv Contrast(Rout) (02/20/17 19:38) Ct Pulmonary Angiogram (02/20/17 ) Electrocardiogram (02/20/17 ) Urinalysis - C+S If Indicated (02/20/17 20:33) Cath For Specimen (02/20/17 20:33) Comprehensive Metabolic Panel (02/20/17 19:39) Iohexol 350 Inj (Omnipaque 350 Inj) (02/20/17 21:47) Urine Culture (02/20/17 19:32) Ciprofloxacin 400 Mg Premix (Cipro 400 M (02/20/17 22:45) Metronidazole 500 Mg Inj (Flagyl 500 Mg (02/20/17 22:45) C Diff Toxin Pcr (02/20/17 22:41) Admit Order (Ed Use Only) (02/20/17 22:51) Labs Laboratory Tests Test 02/20/17 16:50 02/20/17 19:32 02/20/17 19:39 White Blood Count 8.5 TH/MM3 Red Blood Count 3.73 MIL/MM3 Hemoglobin 11.6 GM/DL Hematocrit 35.0 % Mean Corpuscular Volume 94.0 FL Mean Corpuscular Hemoglobin 31.2 PG Mean Corpuscular Hemoglobin Concent 33.2 % Red Cell Distribution Width 14.7 % Platelet Count 344 TH/MM3 Mean Platelet Volume 9.2 FL Neutrophils (%) (Auto) 62.1 % Lymphocytes (%) (Auto) 22.7 % Monocytes (%) (Auto) 9.8 % Eosinophils (%) (Auto) 4.6 % Basophils (%) (Auto) 0.8 % Neutrophils # (Auto) 5.3 TH/MM3 Lymphocytes # (Auto) 1.9 TH/MM3 Monocytes # (Auto) 0.8 TH/MM3 Eosinophils # (Auto) 0.4 TH/MM3 Basophils # (Auto) 0.1 TH/MM3 CBC Comment DIFF FINAL Differential Comment Prothrombin Time 11.5 SEC Prothromb Time International Ratio 1.1 RATIO Activated Partial Thromboplast Time 24.2 SEC Urine Color YELLOW Urine Turbidity CLOUDY Urine pH 6.5 Urine Specific [place] 1.015 Urine Protein 30 mg/dL Urine Glucose (UA) NEG mg/dL Urine Ketones NEG mg/dL Urine Occult Blood TRACE Urine Nitrite POS Urine Bilirubin NEG Urine Urobilinogen LESS THAN 2.0 MG/DL Urine Leukocyte Esterase LARGE Urine RBC 11 /hpf Urine WBC 131 /hpf Urine Squamous Epithelial Cells 137 /hpf Urine Amorphous Sediment RARE Urine Bacteria MANY /hpf Urine Mucus FEW /lpf Microscopic Urinalysis Comment CATH-CULTURE IND Blood Urea Nitrogen 7 MG/DL Creatinine 0.52 MG/DL Random Glucose 94 MG/DL Total Protein 6.8 GM/DL Albumin 2.6 GM/DL Calcium Level 8.5 MG/DL Alkaline Phosphatase 72 U/L Aspartate Amino Transf (AST/SGOT) 31 U/L Alanine Aminotransferase (ALT/SGPT) 42 U/L Total Bilirubin 0.3 MG/DL Sodium Level 142 MEQ/L Potassium Level 3.5 MEQ/L Chloride Level 104 MEQ/L Carbon Dioxide Level 26.5 MEQ/L Anion Gap 12 MEQ/L Estimat Glomerular Filtration Rate 113 ML/MIN Lipase 74 U/L [facility] Medical Decision Making Medical Screen Exam Complete: Yes Emergency Medical Condition: Yes Differential Diagnosis Pneumonia, bronchitis, intra-abdominal infectious process, pyelonephritis, UTI, colitis, diverticulitis Narrative Course Initial vital signs show heart rate 87, blood pressure 118/63, pulse ox 98% on 2 L nasal cannula, oral temp of 98.7F, rectal temp of 98.9F. CBC is essentially unremarkable. CMP is unremarkable. UA: Cloudy, trace occult blood, positive nitrites, large leukocyte esterase, 131 wbc 's, 31 RBCs, many bacteria, few mucus. CT abdomen pelvis: CONCLUSION: Postsurgical changes are noted, and there is abnormal long segment circumferential bowel wall thickening involving the distal transverse colon from the splenic flexure through the distal descending colon to the ostomy site. This is characteristic of colitis. Patient was made aware of all findings. She will be started on Cipro and Flagyl for her colitis as well as UTI/pyelonephritis. C. difficile toxin sent. She'll be admitted for further treatment and evaluation. She is amenable to this plan. Case discussed with hospitalist Dr. Antoine who will admit the patient to her service. Diagnosis Primary Impression: Colitis Additional Impression: Pyelonephritis Admitting Information Admitting Physician Requests: Observation Dain Sanabria MD Feb 20, 2017 19:41
[2017-02-20 19:46] VITALS: BP 119/69; PULSE 82; RESP 18; O2SAT 100
[2017-02-20 20:07] LABS: LIPASE 74 U/L (73-393)
[2017-02-20 20:57] LABS: ALBUMIN 2.6 GM/DL (3.4-5.0); AST (GOT) 31 U/L (15-37); BICARBONATE 26.5 MEQ/L (21.0-32.0); BLOOD UREA NITROGEN 7 MG/DL (7-18); CALCIUM 8.5 MG/DL (8.5-10.1); CHLORIDE 104 MEQ/L (98-107); CREATININE 0.52 MG/DL (0.50-1.00); GLOMERULAR FILTRATION RATE 113 ML/MIN (>89); GLUCOSE,RANDOM 94 MG/DL (74-106); SODIUM (NA) 142 MEQ/L (136-145)
[2017-02-20 20:58] LABS: ALT (GPT) 42 U/L (10-53)
[2017-02-20 21:00] VITALS: TEMP 98.9
[2017-02-20 21:00] LABS: ALKALINE PHOSPHATASE 72 U/L (45-117); TOTAL BILIRUBIN ADULT 0.3 MG/DL (0.2-1.0); TOTAL PROTEIN 6.8 GM/DL (6.4-8.2)
[2017-02-20] MEDS ORDERED: IOHEXOL 350 MG/ML 10 ML VIAL (for RAD DIAG) IVCONTRAST ONE (21:47)
--- NOTE | 2017-02-20 21:59 | RADRPT ---
EXAM DATE/TIME: 02/20/2017 21:31 [facility] COMPARISON: No previous studies available for comparison. INDICATIONS : Short of breath. IV CONTRAST: 100 cc Omnipaque 350 (iohexol) IV ; Cumulative dose for multiple exams. RADIATION DOSE: 9.02 CTDIvol (mGy) MEDICAL HISTORY : Cardiovascular disease. Myocardial infarction. Hypertension. SURGICAL HISTORY : Coronary stent. ENCOUNTER: Initial ACUITY: 1 day PAIN SCALE: 0/10 LOCATION: chest TECHNIQUE: Volumetric scanning of the chest was performed using a pulmonary embolism protocol MIP images were re constructed. Using automated exposure control and adjustment of the mA and/or kV according to patien t size, radiation dose was kept as low as reasonably achievable to obtain optimal diagnostic quality images. DICOM format image data is available electronically for review and comparison. Follow-up recommendations for detected pulmonary nodules are based at a minimum on nodule size and pa tient risk factors according to Fleischner Society Guidelines. FINDINGS: Moderate elevation of the right hemidiaphragm. Mildly prominent lymph nodes are noted in the AP windo w, subcarinal and hilar regions. No pleural or pericardial effusions. There is no evidence of pulmona ry embolism. Coronary artery calcification is noted. CONCLUSION: No evidence of pulmonary embolus. Elevation of the right hemidiaphragm. Trent Mohr MD on February 20, 2017 at 21:56 Board Certified Radiologist. This report was verified electronically.
--- NOTE | 2017-02-20 22:02 | RADRPT ---
EXAM DATE/TIME: 02/20/2017 21:31 [facility] COMPARISON: No previous studies available for comparison. INDICATIONS : Abdominal pain. IV CONTRAST: 100 cc Omnipaque 350 (iohexol) IV ; Cumulative dose for multiple exams. ORAL CONTRAST: No oral contrast ingested. RADIATION DOSE: 15.68 CTDIvol (mGy) MEDICAL HISTORY : Cardiovascular disease. Hypertension. Carcinoma, colon. SURGICAL HISTORY : Colostomy. ENCOUNTER: Initial ACUITY: 1 day PAIN SCALE: 5/10 LOCATION: abdomen TECHNIQUE: Volumetric scanning of the abdomen and pelvis was performed. Using automated exposure control and ad justment of the mA and/or kV according to patient size, radiation dose was kept as low as reasonably achievable to obtain optimal diagnostic quality images. DICOM format image data is available electro nically for review and comparison. FINDINGS: Mild atelectatic changes at the lung bases. No pleural or pericardial effusions are seen. There is a cyst in the left lobe of the liver measuring 1.5 cm. Gallbladder, kidneys, adrenals, spleen, pancreas unremarkable. Atherosclerotic plaquing of the aorta and iliac vessels identified. Urinary bladder un remarkable. Uterus and left ovary unremarkable. 1.2 cm right ovarian cyst. There is previous partial colectomy with a left lower quadrant colostomy identified. There is abnormal circumferential bowel wa ll thickening involving the distal transverse colon and descending colon extending to the ostomy site . There is mild pericolonic formation and hyperemia. There are degenerative changes of the spine. CONCLUSION: Postsurgical changes are noted, and there is abnormal long segment circumferential bowel wall thicken ing involving the distal transverse colon from the splenic flexure through the distal descending colo n to the ostomy site. This is characteristic of colitis. Trent Mohr MD on February 20, 2017 at 21:57 Board Certified Radiologist. This report was verified electronically.
[2017-02-20 22:21] LABS: AMORPHOUS SEDIMENT, URINE RARE; BACTERIA, URINE MANY /hpf; BILIRUBIN, URINE NEG (NEG); BLOOD, URINE TRACE (NEG); GLUCOSE,URINE NEG (NEG); KETONE, URINE NEG (NEG); MUCUS URINE FEW /lpf (OCC); NITRITE,URINE POS (NEG); PH, URINE 6.5 (5.0-8.5); SQUAMOUS EPITHELIAL CELL URINE 137 /hpf (0-5); URINE COLOR YELLOW (YELLW/STRAW); URINE LEUKOCYTE ESTERASE LARGE (NEG)
[2017-02-20] MEDS ORDERED: metroNIDAZOLE 500 MG INJ 100 ML IV ONE (22:45)
[2017-02-20] MEDS ORDERED: CIPROFLOXACIN 400 MG PREMIX 200 ML IV ONE (22:45)
[2017-02-20] MEDS ORDERED: SODIUM CHLORIDE 0.9% FLUSH 10 ML FLUSH IV FLUSH PRN (23:15)
[2017-02-20] MEDS ORDERED: LACTULOSE SYRUP 20 GM/30 ML CUP PO PRN (23:15)
[2017-02-20] MEDS ORDERED: ONDANSETRON HCL 4 MG/2 ML VIAL IVP PRN (23:15)
[2017-02-20] MEDS ORDERED: SENNOSIDES 8.6 MG TAB PO PRN (23:15)
[2017-02-20] MEDS ORDERED: MAGNESIUM HYDROXIDE SUSP 30 ML CUP PO PRN (23:15)
[2017-02-20] MEDS ORDERED: NALOXONE HCL 0.4 MG/ML AMP IV PUSH PRN (23:15)
[2017-02-20] MEDS ORDERED: BISACODYL 10 MG SUPP RECTAL PRN (23:15)
[2017-02-21] VITALS (7 sets, daily range): BP systolic 109–137; BP diastolic 56–68; PULSE 72–97; RESP 16–18; TEMP 96.1–96.3; O2SAT 94–99
[2017-02-21] MEDS: HEPARIN SODIUM - SQ 10,000 UNITS/ML VIAL SQ SCH ×3 (01:50→23:44)
[2017-02-21 07:02] LABS: AUTOMATED NEUTROPHIL # 5.1 TH/MM3 (1.8-7.7); BASOPHIL # 0.1 TH/MM3 (0-0.2); BASOPHIL % 0.8 % (0.0-2.0); EOSINOPHIL # 0.4 TH/MM3 (0-0.4); EOSINOPHIL % 4.5 % (0.0-4.0); HEMATOCRIT 34.4 % (35.0-46.0); HEMOGLOBIN 11.7 GM/DL (11.6-15.3); LYMPH % 25.6 % (9.0-44.0); LYMPHOCYTE # 2.2 TH/MM3 (1.0-4.8); MEAN CELL VOLUME 92.5 FL (80.0-100.0); MEAN CORPUSCULAR HEMOGLOBIN 31.5 PG (27.0-34.0); MEAN PLATELET VOLUME 9.6 FL (7.0-11.0); MONO % 10.6 % (0.0-8.0); MONOCYTE # 0.9 TH/MM3 (0-0.9); NEUT % 58.5 % (16.0-70.0); PLATELET COUNT 346 TH/MM3 (150-450); RED BLOOD COUNT 3.72 MIL/MM3 (4.00-5.30); RED CELL DISTRIBUTION WIDTH 14.6 % (11.6-17.2); WHITE BLOOD COUNT 8.6 TH/MM3 (4.0-11.0)
[2017-02-21 07:24] LABS: BICARBONATE 31.2 MEQ/L (21.0-32.0); CALCIUM 8.6 MG/DL (8.5-10.1); CREATININE 0.58 MG/DL (0.50-1.00)
[2017-02-21] MEDS: metroNIDAZOLE 500 MG INJ 100 ML IV SCH ×3 (07:31→21:10)
--- NOTE | 2017-02-21 08:13 | HHI.HP ---
HPI Service [facility] Hospitalists Primary Care Physician Francis Morrell MD Admission Diagnosis colitis, pyelonephritis Diagnoses: Chief Complaint: Feverish Weak Cough with sputum production Dyspnea Travel History International Travel<30 Days: No Contact w/Intl Traveler <30 Da: No Traveled to Known Affected Are: No History of Present Illness Written by Aruora Marie, acting as scribe for Dr. Vu on 02/21/17 at 08: 11. 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 She endorses feeling feverish and weak. She has been using her inhalers at home, mostly at night, with some improvement. She is on unknown antibiotic for bronchitis/pneumonia as an outpatient. She denies any nausea, vomiting or abdominal pain. She endorses left-sided flank and back pain. Her breathing is improved today. She denies any difficulty swallowing. Following her hospitalization in January, she went to rehab but only stayed 2-3 days before signing herself out AMA due to her being unhappy with the care she was receiving. Prior to her surgery, she was functional with her ADLs but reports now she does not walk and is unable to perform her ADLs. Patient lives alone. She would like to go back to rehab if able. In the ED, her UA was strongly suggestive of urinary tract infection with positive nitrites, large leukocytes, 131 white blood cells, 31 red blood cells and many bacteria. CT of abdomen and pelvis was obtained which showed an abnormal long segment circumferential bowel wall thickening involving the distal transverse colon cancer 6 of colitis. Patient IV Cipro and Flagyl. C. difficile toxin was sent but was negative. Review of Systems Except as stated in HPI: all other systems reviewed are Neg Past Family Social History Past Medical History 02/05/17 status post resection of adenocarcinoma sigmoid colon with diverting colostomy Asthma HTN HLD CHF Past Surgical History 02/05/17 status post resection of adenocarcinoma sigmoid colon with diverting colostomy Cardiac stent implant 4 yrs ago Cataract surgery Reported Medications Azithromycin 500 Mg Tab 500 Mg PO DAILY Doxycycline 40 Mg Cap 40 Mg PO DAILY Meclizine (Meclizine HCl) 12.5 Mg Tab 12.5 Mg PO TID PRN Plavix (Clopidogrel Bisulfate) 75 Mg Tab 75 Mg PO HS Atorvastatin (Atorvastatin Calcium) 20 Mg Tab 20 Mg PO HS Metoprolol Tartrate 25 Mg Tab 25 Mg PO DAILY Allergies: Coded Allergies: penicillin G (Unverified Allergy, Severe, 02/18/17) Active Ordered Medications Current Medications Medications (Trade) Dose Ordered Sig/Lizy Route Start Time Stop Time Status Last Admin Ciprofloxacin/ Dextrose 200 ml @ 200 mls/hr Q12H IV 02/21/17 11:00 Metronidazole 100 ml @ 100 mls/hr Q8H IV 02/21/17 07:00 02/21/17 07:31 (NS Flush) 2 ml UNSCH PRN IV FLUSH 02/20/17 23:15 (NS Flush) 2 ml BID IV FLUSH 02/21/17 09:00 (Tylenol) 650 mg Q4H PRN PO 02/20/17 23:15 (Zofran Inj) 4 mg Q6H PRN IVP 02/20/17 23:15 (Heparin Inj) 5,000 units Q12H SQ 02/21/17 00:00 02/21/17 01:50 (Narcan Inj) 0.4 mg UNSCH PRN IV PUSH 02/20/17 23:15 (Sulma-Colace) 1 tab BID PO 02/21/17 09:00 (Milk Of Magnesia Liq) 30 ml Q12H PRN PO 02/20/17 23:15 (Senokot) 17.2 mg Q12H PRN PO 02/20/17 23:15 (Dulcolax Supp) 10 mg DAILY PRN RECTAL 02/20/17 23:15 (Lactulose Liq) 30 ml DAILY PRN PO 02/20/17 23:15 Family History Denies any FMHX of CAD or DM Social History Patient denies any tobacco use, EtOH consumption or illicit drug use. Physical Exam Vital Signs Vital Signs Date Time Temp Pulse Resp B/P (MAP) Pulse Ox O2 Delivery O2 Flow Rate FiO2 02/21/17 07:20 72 16 118/56 (76) 96 Room Air 02/21/17 04:32 93 18 137/68 (91) 98 02/20/17 21:00 98.9 02/20/17 19:46 82 18 119/69 (86) 100 Nasal Cannula 2.00 02/20/17 19:46 81 18 100 02/20/17 15:20 98.7 87 17 118/63 (81) 98 Physical Exam GENERAL: This is a well-nourished, well-developed elderly female patient, in no apparent distress. Awake and alert. SKIN: No rashes, ecchymoses or lesions. Cool and dry. HEAD: Atraumatic. Normocephalic. No temporal or scalp tenderness. EYES: Pupils equal round and reactive. Extraocular motions intact. No scleral icterus. No injection or drainage. ENT: Nose without bleeding or purulent drainage. Throat without erythema, tonsillar hypertrophy or exudate. Uvula midline. Airway patent. NECK: Trachea midline. No lymphadenopathy. Supple, nontender, no meningeal signs. CARDIOVASCULAR: Regular rate and rhythm without murmurs, gallops, or rubs. RESPIRATORY: Clear to auscultation. Breath sounds equal bilaterally. No wheezes , rales, or rhonchi. GASTROINTESTINAL: Abdomen soft, nondistended. (+)recent midline surgical incision with steristrips in place, appears to be healing well, some surrounding ecchymosis noted. (+)Mild lower abdominal tenderness to palpation. No hepato-splenomegaly, or palpable masses. No guarding. Ostomy left abdominal with small amount of formed stool in bag. MUSCULOSKELETAL: Extremities without clubbing, cyanosis, or edema. No joint tenderness, effusion, or edema noted. No calf tenderness. NEUROLOGICAL: Awake and alert. Motor and sensory grossly within normal limits. Five out of 5 muscle strength in all muscle groups. No focal neurologic findings appreciated. Normal speech. Laboratory Laboratory Tests Test 02/20/17 16:50 02/20/17 19:32 02/20/17 19:39 02/21/17 01:44 White Blood Count 8.5 Red Blood Count 3.73 Hemoglobin 11.6 Hematocrit 35.0 Mean Corpuscular Volume 94.0 Mean Corpuscular Hemoglobin 31.2 Mean Corpuscular Hemoglobin Concent 33.2 Red Cell Distribution Width 14.7 Platelet Count 344 Mean Platelet Volume 9.2 Neutrophils (%) (Auto) 62.1 Lymphocytes (%) (Auto) 22.7 Monocytes (%) (Auto) 9.8 Eosinophils (%) (Auto) 4.6 Basophils (%) (Auto) 0.8 Neutrophils # (Auto) 5.3 Lymphocytes # (Auto) 1.9 Monocytes # (Auto) 0.8 Eosinophils # (Auto) 0.4 Basophils # (Auto) 0.1 CBC Comment DIFF FINAL Differential Comment Prothrombin Time 11.5 Prothromb Time International Ratio 1.1 Activated Partial Thromboplast Time 24.2 Urine Color YELLOW Urine Turbidity CLOUDY Urine pH 6.5 Urine Specific [place] 1.015 Urine Protein 30 Urine Glucose (UA) NEG Urine Ketones NEG Urine Occult Blood TRACE Urine Nitrite POS Urine Bilirubin NEG Urine Urobilinogen LESS THAN 2.0 Urine Leukocyte Esterase LARGE Urine RBC 11 Urine WBC 131 Urine Squamous Epithelial Cells 137 Urine Amorphous Sediment RARE Urine Bacteria MANY Urine Mucus FEW Microscopic Urinalysis Comment CATH-CULTURE IND Blood Urea Nitrogen 7 Creatinine 0.52 Random Glucose 94 Total Protein 6.8 Albumin 2.6 Calcium Level 8.5 Alkaline Phosphatase 72 Aspartate Amino Transf (AST/SGOT) 31 Alanine Aminotransferase (ALT/SGPT) 42 Total Bilirubin 0.3 Sodium Level 142 Potassium Level 3.5 Chloride Level 104 Carbon Dioxide Level 26.5 Anion Gap 12 Estimat Glomerular Filtration Rate 113 Lipase 74 Stool C. difficile Toxin (PCR) NEGATIVE Stl C. difficile Toxin Epiderm 027 PRESUMPTIVE NEGATIVE Test 02/21/17 05:36 White Blood Count 8.6 Red Blood Count 3.72 Hemoglobin 11.7 Hematocrit 34.4 Mean Corpuscular Volume 92.5 Mean Corpuscular Hemoglobin 31.5 Mean Corpuscular Hemoglobin Concent 34.0 Red Cell Distribution Width 14.6 Platelet Count 346 Mean Platelet Volume 9.6 Neutrophils (%) (Auto) 58.5 Lymphocytes (%) (Auto) 25.6 Monocytes (%) (Auto) 10.6 Eosinophils (%) (Auto) 4.5 Basophils (%) (Auto) 0.8 Neutrophils # (Auto) 5.1 Lymphocytes # (Auto) 2.2 Monocytes # (Auto) 0.9 Eosinophils # (Auto) 0.4 Basophils # (Auto) 0.1 CBC Comment DIFF FINAL Differential Comment Blood Urea Nitrogen 5 Creatinine 0.58 Random Glucose 80 Calcium Level 8.6 Sodium Level 140 Potassium Level 3.5 Chloride Level 102 Carbon Dioxide Level 31.2 Anion Gap 7 Estimat Glomerular Filtration Rate 100 Date/Time Source Procedure Growth Status 02/20/17 19:32 Urine Catheterized Urine Urine Culture Pending Received Result Diagram: 02/21/17 0536 02/21/17 0536 Imaging Last Impressions Abdomen/Pelvis CT 02/20/17 1938 Signed Impressions: Service Date/Time: February 21:31 - CONCLUSION: Postsurgical changes are noted, and there is abnormal long segment circumferential bowel wall thickening involving the distal transverse colon from the splenic flexure through the distal descending colon to the ostomy site. This is characteristic of colitis. Trent Mohr MD Chest X-Ray 02/20/17 0000 Signed Impressions: Service Date/Time: February 16:59 - CONCLUSION: Slight bibasilar atelectasis and/or infiltrate is seen. Brandi Mclean MD CT Angiography 02/20/17 0000 Signed Impressions: Service Date/Time: February 21:31 - CONCLUSION: No evidence of pulmonary embolus. Elevation of the right hemidiaphragm. Trent Mohr MD [place] VTE Risk Assessment Caprini VTE Risk Assessment: Mod/High Risk (score >= 2) Caprini Risk Assessment Model Point Value = 1 Point Value = 2 Point Value = 3 Point Value = 5 Age 41-60 Minor surgery BMI > 25 kg/m2 Swollen legs Varicose veins or History of unexplained or recurrent spontaneous Oral contraceptives or hormone replacement Sepsis (< 1 month) Serious lung disease, including pneumonia (< 1 month) Abnormal pulmonary function Acute myocardial infarction Congestive heart failure (< 1 month) History of inflammatory bowel disease Medical patient at bed rest Age 61-74 Arthroscopic surgery Major open surgery (> 45 min) Laparoscopic surgery (> 45 min) Malignancy Confined to bed (> 72 hours) Immobilizing plaster cast Central venous access Age >= 75 History of VTE Family history of VTE Factor V Leiden Prothrombin [id number] Lupus anticoagulant Anticardiolipin antibodies Elevated serum homocysteine Heparin-induced thrombocytopenia Other congenital or acquired thrombophilia Stroke (< 1 month) Elective arthroplasty Hip, pelvis, or leg fracture Acute spinal cord injury (< 1 month) Prophylaxis Regimen Total Risk Factor Score Risk Level Prophylaxis Regimen 0-1 Low Early ambulation 2 Moderate Order ONE of the following: *Sequential Compression Device (SCD) *Heparin 5000 units SQ BID 3-4 Higher Order ONE of the following medications: *Heparin 5000 units SQ TID *Enoxaparin/Lovenox 40 mg SQ daily (WT < 150 kg, CrCl > 30 mL/min) *Enoxaparin/Lovenox 30 mg SQ daily (WT < 150 kg, CrCl > 10-29 mL/min) *Enoxaparin/Lovenox 30 mg SQ BID (WT < 150 kg, CrCl > 30 mL/min) AND/OR *Sequential Compression Device (SCD) 5 or more Highest Order ONE of the following medications: *Heparin 5000 units SQ TID (Preferred with Epidurals) *Enoxaparin/Lovenox 40 mg SQ daily (WT < 150 kg, CrCl > 30 mL/min) *Enoxaparin/Lovenox 30 mg SQ daily (WT < 150 kg, CrCl > 10-29 mL/min) *Enoxaparin/Lovenox 30 mg SQ BID (WT < 150 kg, CrCl > 30 mL/min) AND *Sequential Compression Device (SCD) Assessment and Plan Assessment and Plan 81yo female with PMHX of asthma and recent sigmoid adenocarcinoma with diverting colostomy 02/07/2017, HTN, CAD s/p cardiac stent implants and HLD who presents to [facility] ED complaining of shortness of breath and productive cough with whitish sputum x 1 day. Left pyelonephritis UTI - UA positive for nitrites, leukocytes, 11 red blood cells, 131 white blood cells, and many bacteria. Patient placed on IV antibiotics. Will continue. - Follow up on final urine culture results. 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 Oneal Questionable Colitis - CT abd/pelvis showing there is abnormal long segment circumferential bowel wall thickening involving the distal transverse colon from the splenic flexure through the distal descending colon to the ostomy site. This is characteristic of colitis. - Patient has no complaints of nausea, vomiting or abdominal pain but I am able to elicit some mild tenderness to palpation of the lower abdomen. Discussed findings with Oni FLOOD, will see patient in consultation, appreciate assistance. - Continue on IV metronidazole and ciprofloxacin - Cdiff negative Possible HCAP - CXR personally reviewed showing atelectasis the right lung base and possible infiltrate - Patient on antibiotics as outpatient for pneumonia - incentive spirometry at bedside, encourage or the use - Supplemental oxygen to maintain O2 sat above 92%. Continue to monitor history status. Physical deconditioning postoperatively Unable to perform ADLs - PT/OT eval/tx - consult case management to assist with discharge planning. Patient will likely need rehabilitation at time of discharge. Systolic CHF, compensated - Echocardiogram done 02/04/17 EF 30-35%, global left ventricular dysfunction , [id number] mitral valve regurgitation and [id number] pulmonary hypertension present ( 65 mmHg). - No evidence of fluid overload on exam. Continue monitor closely. - Salt restricted diet. - Continue on beta maxwell CAD s/p cardiac stents - Patient has no complaints of chest pain at this time - monitor - Initiate aspirin therapy if no indication for procedure per DVT prophylaxis - Heparin sq the above note was scribed by Ms. Aurora Marie ( DENG). I attest that I had a [id number] encounter with the patient and personally performed the physical exam and medical decision making and reviewed the findings and plan with the patient. Discussed Condition With patient, Oni Thanh [employer] Physician Certification 2 Midnight Certification Type: Admission for Inpatient Services Order for Inpatient Services The services are ordered in accordance with Medicare regulations or non- Medicare payer requirements, as applicable. In the case of services not specified as inpatient-only, they are appropriately provided as inpatient services in accordance with the 2-midnight benchmark. Estimated LOS (days): 3 3 days is the estimated time the patient will need to remain in the hospital, assuming treatment plan goals are met and no additional complications. Post-Hospital Plan: Not yet determined Aurora Marie Feb 21, 2017 08:13 Ankur Vu MD Feb 21, 2017 13:06
[2017-02-21] MEDS: SODIUM CHLORIDE 0.9% FLUSH 10 ML FLUSH IV FLUSH SCH ×2 (09:29→21:08)
[2017-02-21] MEDS: DOCUSATE SODIUM 50 MG/SENNA 8.6 MG TAB PO SCH ×2 (09:29→21:00)
[2017-02-21] MEDS: guaiFENesin E.R. 600 MG TAB PO SCH ×2 (10:18→21:09)
[2017-02-21] MEDS: CIPROFLOXACIN 400 MG PREMIX 200 ML IV SCH ×2 (11:25→23:44)
[2017-02-21] MEDS: RESP: ALBUTEROL 2.5 MG/IPRATROPIUM 0.5 MG NEB (SCH) NEB ×2 (13:56→20:34)
--- NOTE | 2017-02-21 16:26 | PD.CONS ---
cc: Ricardo Oneal MD [facility] Service General Surgery Consult Requested By Aurora VILCHIS Reason for Consult s/p open sigmoid resection; end colostomy on Feb 05; questionable colitis on CT scan Primary Care Physician Francis Morrell MD History of Present Illness This is an 81-year-old female asthma, hypertension, CAD, cardiac stent placement , CHF with an EF of about 30% and high cholesterol who came to the emergency department today complaining of shortness of breath with a productive cough with sputum. She has recently been in rehabilitation and discharged home. She is known to the General Surgery service because she had a diverting colostomy for a moderately differentiated adenocarcinoma on February 05, 2017. The patient has done well postoperatively. A CT abdomen and pelvis was obtained in the emergency department and there was a question of possible colitis. The patient endorses no abdominal pain or inability to tolerate any by mouth intake. It appears the patient also has a UTI. A General Surgery consultation has been requested for evaluation of colitis visualized on CT scan. Review of Systems Constitutional: DENIES: Fatigue, Weight loss, Change in appetite Endocrine: DENIES: Polydipsia, Polyuria, Polyphagia Eyes: DENIES: Diplopia Ears, nose, mouth, throat: DENIES: Hearing loss Respiratory: COMPLAINS OF: Sputum production, Shortness of breath, DENIES: Snoring Cardiovascular: DENIES: Palpitations Gastrointestinal: DENIES: Abdominal pain, Nausea, Vomiting Genitourinary: DENIES: Urinary frequency Musculoskeletal: DENIES: Joint pain Integumentary: DENIES: Abnormal pigmentation Hematologic/lymphatic: DENIES: Bruising Immunologic/allergic: DENIES: Eczema Neurologic: DENIES: Abnormal gait, Headache Psychiatric: DENIES: Depression, Hallucinations Past Family Social History Past Medical History Asthma Hypertension CAD Cardiac stent placement CHF with an EF of 30% High cholesterol Recently diagnosed moderately differentiated adenocarcinoma Past Surgical History Diagnostic laparoscopy; open sigmoid resection and end colostomy on January. Cardiac stent placement Reported Medications Metoprolol Plavix Meclizine Allergies: Coded Allergies: penicillin G (Unverified Allergy, Severe, 02/18/17) Active Ordered Medications Current Medications Medications (Trade) Dose Ordered Sig/Lizy Route Start Time Stop Time Status Last Admin Ciprofloxacin/ Dextrose 200 ml @ 200 mls/hr Q12H IV 02/21/17 11:00 02/21/17 11:25 Metronidazole 100 ml @ 100 mls/hr Q8H IV 02/21/17 07:00 02/21/17 15:53 (NS Flush) 2 ml UNSCH PRN IV FLUSH 02/20/17 23:15 (NS Flush) 2 ml BID IV FLUSH 02/21/17 09:00 02/21/17 09:29 (Tylenol) 650 mg Q4H PRN PO 02/20/17 23:15 (Zofran Inj) 4 mg Q6H PRN IVP 02/20/17 23:15 (Heparin Inj) 5,000 units Q12H SQ 02/21/17 00:00 02/21/17 11:26 (Narcan Inj) 0.4 mg UNSCH PRN IV PUSH 02/20/17 23:15 (Sulma-Colace) 1 tab BID PO 02/21/17 09:00 02/21/17 09:29 (Milk Of Magnesia Liq) 30 ml Q12H PRN PO 02/20/17 23:15 (Senokot) 17.2 mg Q12H PRN PO 02/20/17 23:15 (Dulcolax Supp) 10 mg DAILY PRN RECTAL 02/20/17 23:15 (Lactulose Liq) 30 ml DAILY PRN PO 02/20/17 23:15 (Duoneb Neb) 1 ampule Q6HR WHILE AWAKE NEB NEB 02/21/17 14:00 (Mucinex Er) 600 mg BID PO 02/21/17 10:00 02/21/17 10:18 Family History Noncontributory Social History Denies tobacco use Denies EtOH use Denies illicit drug use Lives at home by herself. Has recently been in the hospital as well as a rehabilitation facility. Physical Exam Vital Signs Vital Signs Date Time Temp Pulse Resp B/P (MAP) Pulse Ox O2 Delivery O2 Flow Rate FiO2 02/21/17 12:13 96.2 78 18 116/58 (77) 94 02/21/17 11:07 02/21/17 10:18 97 18 120/61 (80) 98 Room Air 02/21/17 07:20 72 16 118/56 (76) 96 Room Air 02/21/17 04:32 93 18 137/68 (91) 98 02/20/17 21:00 98.9 02/20/17 19:46 82 18 119/69 (86) 100 Nasal Cannula 2.00 02/20/17 19:46 81 18 100 Physical Exam GENERAL: Pleasant 81-year-old female resting in bed in no acute distress. SKIN: Warm and dry. HEAD: Atraumatic. Normocephalic. EYES: Pupils equal and round. No scleral icterus. No injection or drainage. ENT: No nasal bleeding or discharge. Mucous membranes pink and moist. NECK: Trachea midline. CARDIOVASCULAR: Regular rate and rhythm. RESPIRATORY: No accessory muscle use. Clear to auscultation. Breath sounds equal bilaterally. GASTROINTESTINAL: Abdomen soft, non-tender, nondistended. Midline incision ( drea removed already)---Steri Strips in place; small amount of clear drainage from incision; colostomy pink--stool in bag. MUSCULOSKELETAL: Extremities without clubbing, cyanosis, or edema. No obvious deformities. NEUROLOGICAL: Awake and alert. No obvious cranial nerve deficits. Motor grossly within normal limits. Five out of 5 muscle strength in the arms and legs. Normal speech. PSYCHIATRIC: Appropriate mood and affect; insight and judgment normal. Laboratory Laboratory Tests Test 02/20/17 16:50 02/20/17 19:32 02/20/17 19:39 02/21/17 01:44 White Blood Count 8.5 Red Blood Count 3.73 Hemoglobin 11.6 Hematocrit 35.0 Mean Corpuscular Volume 94.0 Mean Corpuscular Hemoglobin 31.2 Mean Corpuscular Hemoglobin Concent 33.2 Red Cell Distribution Width 14.7 Platelet Count 344 Mean Platelet Volume 9.2 Neutrophils (%) (Auto) 62.1 Lymphocytes (%) (Auto) 22.7 Monocytes (%) (Auto) 9.8 Eosinophils (%) (Auto) 4.6 Basophils (%) (Auto) 0.8 Neutrophils # (Auto) 5.3 Lymphocytes # (Auto) 1.9 Monocytes # (Auto) 0.8 Eosinophils # (Auto) 0.4 Basophils # (Auto) 0.1 CBC Comment DIFF FINAL Differential Comment Prothrombin Time 11.5 Prothromb Time International Ratio 1.1 Activated Partial Thromboplast Time 24.2 Urine Color YELLOW Urine Turbidity CLOUDY Urine pH 6.5 Urine Specific [place] 1.015 Urine Protein 30 Urine Glucose (UA) NEG Urine Ketones NEG Urine Occult Blood TRACE Urine Nitrite POS Urine Bilirubin NEG Urine Urobilinogen LESS THAN 2.0 Urine Leukocyte Esterase LARGE Urine RBC 11 Urine WBC 131 Urine Squamous Epithelial Cells 137 Urine Amorphous Sediment RARE Urine Bacteria MANY Urine Mucus FEW Microscopic Urinalysis Comment CATH-CULTURE IND Blood Urea Nitrogen 7 Creatinine 0.52 Random Glucose 94 Total Protein 6.8 Albumin 2.6 Calcium Level 8.5 Alkaline Phosphatase 72 Aspartate Amino Transf (AST/SGOT) 31 Alanine Aminotransferase (ALT/SGPT) 42 Total Bilirubin 0.3 Sodium Level 142 Potassium Level 3.5 Chloride Level 104 Carbon Dioxide Level 26.5 Anion Gap 12 Estimat Glomerular Filtration Rate 113 Lipase 74 Stool C. difficile Toxin (PCR) NEGATIVE Stl C. difficile Toxin Epiderm 027 PRESUMPTIVE NEGATIVE Test 02/21/17 05:36 White Blood Count 8.6 Red Blood Count 3.72 Hemoglobin 11.7 Hematocrit 34.4 Mean Corpuscular Volume 92.5 Mean Corpuscular Hemoglobin 31.5 Mean Corpuscular Hemoglobin Concent 34.0 Red Cell Distribution Width 14.6 Platelet Count 346 Mean Platelet Volume 9.6 Neutrophils (%) (Auto) 58.5 Lymphocytes (%) (Auto) 25.6 Monocytes (%) (Auto) 10.6 Eosinophils (%) (Auto) 4.5 Basophils (%) (Auto) 0.8 Neutrophils # (Auto) 5.1 Lymphocytes # (Auto) 2.2 Monocytes # (Auto) 0.9 Eosinophils # (Auto) 0.4 Basophils # (Auto) 0.1 CBC Comment DIFF FINAL Differential Comment Blood Urea Nitrogen 5 Creatinine 0.58 Random Glucose 80 Calcium Level 8.6 Sodium Level 140 Potassium Level 3.5 Chloride Level 102 Carbon Dioxide Level 31.2 Anion Gap 7 Estimat Glomerular Filtration Rate 100 Date/Time Source Procedure Growth Status 02/20/17 19:32 Urine Catheterized Urine Urine Culture - Preliminary Gram Negative Олег Resulted Result Diagram: 02/21/17 0536 02/21/17 0536 Imaging Last 48 hours Impressions Abdomen/Pelvis CT 02/20/17 1938 Signed Impressions: Service Date/Time: February 21:31 - CONCLUSION: Postsurgical changes are noted, and there is abnormal long segment circumferential bowel wall thickening involving the distal transverse colon from the splenic flexure through the distal descending colon to the ostomy site. This is characteristic of colitis. Trent Mohr MD Chest X-Ray 02/20/17 0000 Signed Impressions: Service Date/Time: February 16:59 - CONCLUSION: Slight bibasilar atelectasis and/or infiltrate is seen. Brandi Mclean MD CT Angiography 02/20/17 0000 Signed Impressions: Service Date/Time: February 21:31 - CONCLUSION: No evidence of pulmonary embolus. Elevation of the right hemidiaphragm. Trent Mohr MD Assessment and Plan Assessment and Plan 81 -year-old female status post sigmoid resection and end colostomy for moderately differentiated adenocarcinoma; UTI; questionable colitis on CT scan -Low suspicion of colitis at this time -Clinically stable -Recommend diet as tolerated -IV antibiotics for UTI -Consult ostomy nurse for continued ostomy teaching -Thank you for this consult; General Surgery will follow peripherally of the weekend; please call with any questions Discussed Condition With Dr. Jm Snell Attending Statement The exam, history, and the medical decision-making described in the above note were completed with the assistance of the mid-level provider. I reviewed and agree with the findings presented. I attest that I had a [id number] encounter with the patient on the same day, and personally performed and documented my assessment and findings in the medical record. Abdominal Exam: soft, non-distended, no rebound tenderness or peritonitis, wound clean, healing well no surgical intervention needed, continue ostomy care and care of midline incision Katelyn Law Feb 21, 2017 16:26 Ricardo Oneal MD Feb 28, 2017 00:15
--- NOTE | 2017-02-21 22:39 | EKG ---
Date Performed: 02/20/2017 Time Performed: 19:52:06 PTAGE: 81 years EKG: Sinus rhythm MARKED LEFT AXIS DEVIATION LEFT BUNDLE BRANCH BLOCK ABNORMAL ECG PREVIOUS TRACING : 02/07/2017 11.31 Compared to prior tracing no significant change DOCTOR: Clayton Mcdaniel Interpretating Date/Time 02/21/2017 22:38:12
[2017-02-22] VITALS: BP 126/63; PULSE 98; RESP 17; TEMP 96.6; O2SAT 96
[2017-02-22 04:00] VITALS: BP 106/55; PULSE 81; RESP 16; TEMP 97; O2SAT 97
[2017-02-22] MEDS: RESP: ALBUTEROL 2.5 MG/IPRATROPIUM 0.5 MG NEB (SCH) NEB ×3 (08:04→19:49)
[2017-02-22] MEDS: DOCUSATE SODIUM 50 MG/SENNA 8.6 MG TAB PO SCH ×2 (09:00→21:00)
[2017-02-22] MEDS: metroNIDAZOLE 500 MG INJ 100 ML IV SCH ×3 (09:39→21:36)
[2017-02-22] MEDS: SODIUM CHLORIDE 0.9% FLUSH 10 ML FLUSH IV FLUSH SCH ×2 (09:42→21:37)
[2017-02-22] MEDS: guaiFENesin E.R. 600 MG TAB PO SCH ×2 (09:42→21:37)
[2017-02-22] MEDS: CIPROFLOXACIN 400 MG PREMIX 200 ML IV SCH (09:45)
[2017-02-22 10:17] VITALS: BP 108/57; PULSE 100; RESP 20; TEMP 97.6; O2SAT 96
--- NOTE | 2017-02-22 11:09 | HHI.PR ---
Subjective Remarks in no acute distress. afebrile. denies abdominal pain. has some back pain. Objective Vitals Vital Signs Date Time Temp Pulse Resp B/P (MAP) Pulse Ox O2 Delivery O2 Flow Rate FiO2 02/22/17 10:17 97.6 100 20 108/57 (74) 96 02/22/17 04:00 97.0 81 16 106/55 (72) 97 02/22/17 00:00 96.6 98 17 126/63 (84) 96 02/21/17 20:37 95 Nasal Cannula 2.00 02/21/17 20:00 96.3 96 17 109/59 (76) 95 02/21/17 18:16 96.1 88 18 112/56 (74) 99 02/21/17 12:13 96.2 78 18 116/58 (77) 94 02/21/17 11:07 I/O 02/21/17 02/21/17 02/21/17 02/22/17 02/22/17 02/22/17 07:00 15:00 23:00 07:00 15:00 23:00 Intake Total 300 ml 200 ml 100 ml 720 ml Balance 300 ml 200 ml 100 ml 720 ml Intake Oral 720 ml IV Total 300 ml 200 ml 100 ml # Voids 2 4 Result Diagram: 02/21/17 0536 02/21/17 0536 Objective Remarks GENERAL: elderly female, in no apparent distress. CARDIOVASCULAR: Regular rate and irregular rhythm without murmurs, gallops, or rubs. RESPIRATORY: Clear to auscultation. Breath sounds equal bilaterally. No wheezes , rales, or rhonchi. GASTROINTESTINAL: Abdomen soft, non-tender, nondistended. Normal, active bowel sounds- colostomy in place. MUSCULOSKELETAL: Extremities without clubbing, cyanosis, or edema. NEURO: Alert & Oriented x4 to person, place, time, situation. Moves all ext x4 Medications and IVs Inpatient Medications Acetaminophen (Tylenol) 650 mg Q4H PRN PO TEMP > 100.4; Start 02/20/17 at 23:15 Albuterol/ Ipratropium (Duoneb Neb) 1 ampule Q6HR WHILE AWAKE NEB NEB Last administered on 02/22/17at 08:04; Start 02/21/17 at 14:00 Bisacodyl (Dulcolax Supp) 10 mg DAILY PRN RECTAL SEVERE CONSITIPATION; Start at 23:15 Ciprofloxacin/ Dextrose 200 ml @ 200 mls/hr Q12H IV Last administered on at 09:45; Start 02/21/17 at 11:00 Guaifenesin (Mucinex Er) 600 mg BID PO Last administered on 02/22/17at 09:42; Start 02/21/17 at 10:00 Heparin Sodium (Porcine) (Heparin Inj) 5,000 units Q12H SQ Last administered on 02/21/17at 23:44; Start 02/21/17 at 00:00 Lactulose (Lactulose Liq) 30 ml DAILY PRN PO SEVERE CONSITIPATION; Start at 23:15 Magnesium Hydroxide (Milk Of Magnesia Liq) 30 ml Q12H PRN PO Mild constipation ; Start 02/20/17 at 23:15 Metronidazole 100 ml @ 100 mls/hr Q8H IV Last administered on 02/22/17at 09:39; Start 02/21/17 at 07:00 Naloxone HCl (Narcan Inj) 0.4 mg UNSCH PRN IV PUSH SEE LABEL COMMENTS; Start at 23:15 Ondansetron HCl (Zofran Inj) 4 mg Q6H PRN IVP NAUSEA OR VOMITING; Start at 23:15 Senna/Docusate Sodium (Sulma-Colace) 1 tab BID PO Last administered on 02/21/17at 09:29; Start 02/21/17 at 09:00 Sennosides (Senokot) 17.2 mg Q12H PRN PO Moderate constipation; Start 02/20/17 at 23:15 Sodium Chloride (NS Flush) 2 ml BID IV FLUSH Last administered on 02/22/17at 09: 42; Start 02/21/17 at 09:00 A/P Assessment and Plan A/P Left pyelonephritis UTI - UA positive for nitrites, leukocytes, 11 red blood cells, 131 white blood cells, and many bacteria. Patient placed on IV antibiotics. Will continue. - UC with Klebsiella. 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 Oneal Questionable Colitis - CT abd/pelvis showing there is abnormal long segment circumferential bowel wall thickening involving the distal transverse colon from the splenic flexure through the distal descending colon to the ostomy site. This is characteristic of colitis. - surgery consult appreciated. - Continue on IV metronidazole and ciprofloxacin - Cdiff negative Possible HCAP - CXR personally reviewed showing atelectasis the right lung base and possible infiltrate - Patient on antibiotics as outpatient for pneumonia - incentive spirometry at bedside, encourage or the use - Supplemental oxygen to maintain O2 sat above 92%. Continue to monitor history status. Physical deconditioning postoperatively Unable to perform ADLs - PT/OT eval/tx - consulted case management to assist with discharge planning. Patient will likely need rehabilitation at time of discharge. Systolic CHF, compensated - Echocardiogram done 02/04/17 EF 30-35%, global left ventricular dysfunction , Hjhafxoy-ju-fjpwve mitral valve regurgitation and nhrrejgj-dv-cettje pulmonary hypertension present ( 65 mmHg). - No evidence of fluid overload on exam. Continue monitor closely. - Salt restricted diet. - Continue on beta maxwell CAD s/p cardiac stents - Patient has no complaints of chest pain at this time - monitor - Initiate aspirin therapy if no indication for procedure per DVT prophylaxis - Heparin sq Discharge Planning dc planning to SNF. Ankur Vu MD Feb 22, 2017 11:09
[2017-02-22] MEDS: cefTRIAXone INJ 1,000 MG in SODIUM CHLORIDE 0.9% INJ 100 ML IV SCH (12:03)
[2017-02-22] MEDS: HEPARIN SODIUM - SQ 10,000 UNITS/ML VIAL SQ SCH (12:03)
[2017-02-22 12:34] VITALS: BP 91/52; PULSE 93; RESP 18; TEMP 97.2; O2SAT 94
[2017-02-22 15:19] VITALS: BP 105/58; PULSE 94; RESP 18; TEMP 96; O2SAT 98
[2017-02-22 20:16] VITALS: BP 112/55; PULSE 84; RESP 18; TEMP 96.3; O2SAT 97
[2017-02-22] MEDS: ACETAMINOPHEN 325 MG TAB PO PRN (21:39)
[2017-02-23] VITALS (8 sets, daily range): BP systolic 104–132; BP diastolic 55–64; PULSE 61–112; RESP 16–18; TEMP 96.2–98.4; O2SAT 93–98
[2017-02-23] MEDS: HEPARIN SODIUM - SQ 10,000 UNITS/ML VIAL SQ SCH ×2 (00:09→12:19)
[2017-02-23] MEDS: metroNIDAZOLE 500 MG INJ 100 ML IV SCH ×3 (05:34→23:32)
[2017-02-23] MEDS: ACETAMINOPHEN 325 MG TAB PO PRN (06:21)
[2017-02-23] MEDS: RESP: ALBUTEROL 2.5 MG/IPRATROPIUM 0.5 MG NEB (SCH) NEB ×3 (08:12→19:31)
[2017-02-23] MEDS: DOCUSATE SODIUM 50 MG/SENNA 8.6 MG TAB PO SCH ×2 (09:00→23:27)
[2017-02-23] MEDS: guaiFENesin E.R. 600 MG TAB PO SCH ×2 (09:00→23:28)
--- NOTE | 2017-02-23 11:22 | HHI.PR ---
Subjective Remarks in no acute distress. resting comfortably. denies pain. no fever. Objective Vitals Vital Signs Date Time Temp Pulse Resp B/P (MAP) Pulse Ox O2 Delivery O2 Flow Rate FiO2 02/23/17 08:15 97 Nasal Cannula 2.00 02/23/17 05:11 98.0 88 18 120/58 (78) 98 02/23/17 00:07 96.2 110 18 132/64 (86) 93 02/22/17 20:16 96.3 84 18 112/55 (74) 97 02/22/17 15:19 96.0 94 18 105/58 (74) 98 02/22/17 12:34 97.2 93 18 91/52 (65) 94 I/O 02/22/17 02/22/17 02/22/17 02/23/17 02/23/17 02/23/17 07:00 15:00 23:00 07:00 15:00 23:00 Intake Total 720 ml Balance 720 ml Intake Oral 720 ml # Voids 4 4 2 # Bowel Movements 1 Result Diagram: 02/21/17 0536 02/21/17 0536 Imaging Last Impressions Abdomen/Pelvis CT 02/20/17 1938 Signed Impressions: Service Date/Time: February 21:31 - CONCLUSION: Postsurgical changes are noted, and there is abnormal long segment circumferential bowel wall thickening involving the distal transverse colon from the splenic flexure through the distal descending colon to the ostomy site. This is characteristic of colitis. Trent Mohr MD Chest X-Ray 02/20/17 0000 Signed Impressions: Service Date/Time: February 16:59 - CONCLUSION: Slight bibasilar atelectasis and/or infiltrate is seen. Brandi Mclean MD CT Angiography 02/20/17 0000 Signed Impressions: Service Date/Time: February 21:31 - CONCLUSION: No evidence of pulmonary embolus. Elevation of the right hemidiaphragm. Trent Mohr MD Objective Remarks GENERAL: elderly female, in no apparent distress. CARDIOVASCULAR: Regular rate and irregular rhythm without murmurs, gallops, or rubs. RESPIRATORY: Clear to auscultation. Breath sounds equal bilaterally. No wheezes , rales, or rhonchi. GASTROINTESTINAL: Abdomen soft, non-tender, nondistended. Normal, active bowel sounds- colostomy in place. MUSCULOSKELETAL: Extremities without clubbing, cyanosis, or edema. NEURO: Alert & Oriented x4 to person, place, time, situation. Moves all ext x4 Medications and IVs Inpatient Medications Acetaminophen (Tylenol) 650 mg Q4H PRN PO TEMP > 100.4 Last administered on 02/23at 06:21; Start 02/20/17 at 23:15 Albuterol/ Ipratropium (Duoneb Neb) 1 ampule Q6HR WHILE AWAKE NEB NEB Last administered on 02/23/17at 08:12; Start 02/21/17 at 14:00 Bisacodyl (Dulcolax Supp) 10 mg DAILY PRN RECTAL SEVERE CONSITIPATION; Start at 23:15 Ceftriaxone Sodium 1000 mg/ Sodium Chloride 100 ml @ 200 mls/hr Q24H IV Last administered on 02/22/17at 12:03; Start 02/22/17 at 12:00 Ciprofloxacin/ Dextrose 200 ml @ 200 mls/hr Q12H IV Last administered on at 09:45; Start 02/21/17 at 11:00; Stop 02/22/17 at 11:06; Status DC Guaifenesin (Mucinex Er) 600 mg BID PO Last administered on 02/22/17at 21:37; Start 02/21/17 at 10:00 Heparin Sodium (Porcine) (Heparin Inj) 5,000 units Q12H SQ Last administered on 02/23/17at 00:09; Start 02/21/17 at 00:00 Lactulose (Lactulose Liq) 30 ml DAILY PRN PO SEVERE CONSITIPATION; Start at 23:15 Magnesium Hydroxide (Milk Of Magnesia Liq) 30 ml Q12H PRN PO Mild constipation ; Start 02/20/17 at 23:15 Metronidazole 100 ml @ 100 mls/hr Q8H IV Last administered on 02/23/17at 05:34; Start 02/21/17 at 07:00 Naloxone HCl (Narcan Inj) 0.4 mg UNSCH PRN IV PUSH SEE LABEL COMMENTS; Start at 23:15 Ondansetron HCl (Zofran Inj) 4 mg Q6H PRN IVP NAUSEA OR VOMITING; Start at 23:15 Senna/Docusate Sodium (Sulma-Colace) 1 tab BID PO Last administered on 02/21/17at 09:29; Start 02/21/17 at 09:00 Sennosides (Senokot) 17.2 mg Q12H PRN PO Moderate constipation; Start 02/20/17 at 23:15 Sodium Chloride (NS Flush) 2 ml BID IV FLUSH Last administered on 02/22/17at 21: 37; Start 02/21/17 at 09:00 A/P Assessment and Plan A/P Left pyelonephritis UTI - UA positive for nitrites, leukocytes, 11 red blood cells, 131 white blood cells, and many bacteria. Patient placed on IV antibiotics. Will switch to po abx. - UC with Klebsiella. 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 Oneal Questionable Colitis - CT abd/pelvis showing there is abnormal long segment circumferential bowel wall thickening involving the distal transverse colon from the splenic flexure through the distal descending colon to the ostomy site. This is characteristic of colitis. - surgery consult appreciated; low suspicion for colitis; f/u as outpatient. - Cdiff negative Possible HCAP -change to po antibiotic. - incentive spirometry at bedside, encourage or the use - Supplemental oxygen to maintain O2 sat above 92%. Continue to monitor history status. Physical deconditioning postoperatively Unable to perform ADLs - PT/OT eval/tx - consulted case management to assist with discharge planning. Patient will likely need rehabilitation at time of discharge. Systolic CHF, compensated - Echocardiogram done 02/04/17 EF 30-35%, global left ventricular dysfunction , Qtitudih-cn-xiyrvq mitral valve regurgitation and ynutteuo-ma-nbklff pulmonary hypertension present ( 65 mmHg). - No evidence of fluid overload on exam. Continue monitor closely. - Salt restricted diet. - Continue on beta maxwell CAD s/p cardiac stents - Patient has no complaints of chest pain at this time - monitor - Initiate aspirin therapy if no indication for procedure per GS DVT prophylaxis - Heparin sq Discharge Planning dc to SNF when arrangements made. f/u; pcp and surgery. Ankur Vu MD Feb 23, 2017 11:22
[2017-02-23] MEDS ORDERED: HYDR-3516 PO (11:24)
[2017-02-23] MEDS ORDERED: guaiFENesin ER PO (11:44)
[2017-02-23] MEDS ORDERED: CEFU1TAB18 PO (11:44)
[2017-02-23] MEDS ORDERED: ASPI81TA23 PO (11:55)
--- NOTE | 2017-02-23 11:56 | HHI.DCPOC ---
Discharge Care Plan Diagnosis: (1) Pyelonephritis (2) Systolic CHF, chronic (3) Adenocarcinoma (4) Hospital acquired PNA (5) CAD S/P percutaneous coronary angioplasty (6) S/P partial resection of colon Goals to Promote Your Health * To prevent worsening of your condition and complications * To maintain your health at the optimal level Directions to Meet Your Goals Take your medications as prescribed Follow your dietary instruction Follow activity as directed Keep your appointments as scheduled Take your immunizations and boosters as scheduled If your symptoms worsen call your PCP, if no PCP go to Urgent Care Center or Emergency Room Smoking is Dangerous to Your Health. Avoid second hand smoke Call the 24-hour hour crisis hotline for domestic abuse at [facility] Feb 23, 2017 11:56
[2017-02-23] MEDS: cefTRIAXone INJ 1,000 MG in SODIUM CHLORIDE 0.9% INJ 100 ML IV SCH (12:20)
[2017-02-23] MEDS: ASPIRIN EC 81 MG TABEC PO SCH (12:20)
[2017-02-23] MEDS: SODIUM CHLORIDE 0.9% FLUSH 10 ML FLUSH IV FLUSH SCH ×2 (12:22→23:28)
[2017-02-23] MEDS: METOPROLOL TARTRATE 25 MG TAB PO SCH (12:22)
[2017-02-23] MEDS ORDERED: CLOPIDOGREL 75 MG TAB PO SCH (21:00)
[2017-02-23] MEDS ORDERED: ATORVASTATIN 20 MG TAB PO SCH (21:00)
[2017-02-24] VITALS: BP 110/61; PULSE 99; RESP 17; TEMP 97.8; O2SAT 92
[2017-02-24] MEDS: HEPARIN SODIUM - SQ 10,000 UNITS/ML VIAL SQ SCH ×2 (00:22→12:48)
[2017-02-24 04:00] VITALS: BP 116/78; PULSE 96; RESP 18; TEMP 97.5; O2SAT 93
[2017-02-24] MEDS: metroNIDAZOLE 500 MG INJ 100 ML IV SCH ×2 (06:13→15:00)
[2017-02-24 07:05] VITALS: BP 118/53; PULSE 90; RESP 18; TEMP 98.1; O2SAT 96
[2017-02-24] MEDS: RESP: ALBUTEROL 2.5 MG/IPRATROPIUM 0.5 MG NEB (SCH) NEB ×2 (07:55→14:00)
[2017-02-24] MEDS: DOCUSATE SODIUM 50 MG/SENNA 8.6 MG TAB PO SCH (09:00)
[2017-02-24] MEDS: METOPROLOL TARTRATE 25 MG TAB PO SCH (09:31)
[2017-02-24] MEDS: ASPIRIN EC 81 MG TABEC PO SCH (09:31)
[2017-02-24] MEDS: SODIUM CHLORIDE 0.9% FLUSH 10 ML FLUSH IV FLUSH SCH (09:31)
[2017-02-24] MEDS: guaiFENesin E.R. 600 MG TAB PO SCH (10:49)
[2017-02-24 11:27] VITALS: BP 115/57; PULSE 80; RESP 16; TEMP 97.8; O2SAT 97
--- NOTE | 2017-02-24 11:51 | HHI.PR ---
Subjective Remarks in no distress. has mild back pain. otherwise no other complaints. awaiting transfer to rehab. Objective Vitals Vital Signs Date Time Temp Pulse Resp B/P (MAP) Pulse Ox O2 Delivery O2 Flow Rate FiO2 02/24/17 11:27 97.8 80 16 115/57 (76) 97 02/24/17 07:05 98.1 90 18 118/53 (74) 96 02/24/17 04:00 97.5 96 18 116/78 (91) 93 02/24/17 00:00 97.8 99 17 110/61 (77) 92 02/23/17 21:23 98 Nasal Cannula 2.00 02/23/17 20:00 98.0 61 17 110/58 (75) 96 02/23/17 15:46 97.5 77 18 104/55 (71) 98 02/23/17 12:00 97.9 112 18 111/57 (75) 93 I/O 02/23/17 02/23/17 02/23/17 02/24/17 02/24/17 02/24/17 06:59 14:59 22:59 06:59 14:59 22:59 Intake Total 100 ml 100 ml Balance 100 ml 100 ml IV Total 100 ml 100 ml # Voids 2 3 Result Diagram: 02/21/17 0536 02/21/17 0536 Imaging Last Impressions Abdomen/Pelvis CT 02/20/17 193 Signed Impressions: Service Date/Time: February 21:31 - CONCLUSION: Postsurgical changes are noted, and there is abnormal long segment circumferential bowel wall thickening involving the distal transverse colon from the splenic flexure through the distal descending colon to the ostomy site. This is characteristic of colitis. Trent Mohr MD Chest X-Ray 02/20/17 0000 Signed Impressions: Service Date/Time: February 16:59 - CONCLUSION: Slight bibasilar atelectasis and/or infiltrate is seen. Brandi Mclean MD CT Angiography 02/20/17 0000 Signed Impressions: Service Date/Time: February 21:31 - CONCLUSION: No evidence of pulmonary embolus. Elevation of the right hemidiaphragm. Trent Mohr MD Objective Remarks GENERAL: elderly female, in no apparent distress. CARDIOVASCULAR: Regular rate and irregular rhythm without murmurs, gallops, or rubs. RESPIRATORY: Clear to auscultation. Breath sounds equal bilaterally. No wheezes , rales, or rhonchi. GASTROINTESTINAL: Abdomen soft, non-tender, nondistended. Normal, active bowel sounds- colostomy in place. MUSCULOSKELETAL: Extremities without clubbing, cyanosis, or edema. NEURO: Alert & Oriented x4 to person, place, time, situation. Moves all ext x4 Medications and IVs Inpatient Medications Acetaminophen (Tylenol) 650 mg Q4H PRN PO TEMP > 100.4 Last administered on 02/23 06:21; Start 02/20/17 at 23:15 Albuterol/ Ipratropium (Duoneb Neb) 1 ampule Q6HR WHILE AWAKE NEB NEB Last administered on 02/23/17 08:12; Start 02/21/17 at 14:00 Aspirin (Ecotrin Ec) 81 mg DAILY PO Last administered on 02/24/17 09:31; Start 02/23/17 at 12:00 Atorvastatin Calcium (Lipitor) 20 mg HS PO Last administered on 02/23/17 23:27 ; Start 02/23/17 at 21:00 Bisacodyl (Dulcolax Supp) 10 mg DAILY PRN RECTAL SEVERE CONSITIPATION; Start at 23:15 Ceftriaxone Sodium 1000 mg/ Sodium Chloride 100 ml @ 200 mls/hr Q24H IV Last administered on 02/23/17 12:20; Start 02/22/17 at 12:00 Ciprofloxacin/ Dextrose 200 ml @ 200 mls/hr Q12H IV Last administered on 09:45; Start 02/21/17 at 11:00; Stop 02/22/17 at 11:06; Status DC Clopidogrel Bisulfate (Plavix) 75 mg HS PO Last administered on 02/23/17 23:28 ; Start 02/23/17 at 21:00 Guaifenesin (Mucinex Er) 600 mg BID PO Last administered on 02/24/17 10:49; Start 02/21/17 at 10:00 Heparin Sodium (Porcine) (Heparin Inj) 5,000 units Q12H SQ Last administered on 02/24/17at 00:22; Start 02/21/17 at 00:00 Lactulose (Lactulose Liq) 30 ml DAILY PRN PO SEVERE CONSITIPATION; Start at 23:15 Magnesium Hydroxide (Milk Of Magnesia Liq) 30 ml Q12H PRN PO Mild constipation ; Start 02/20/17 at 23:15 Metoprolol Tartrate (Lopressor) 25 mg DAILY PO Last administered on 02/24/17at 09 :31; Start 02/23/17 at 12:00 Metronidazole 100 ml @ 100 mls/hr Q8H IV Last administered on 02/24/17at 06:13; Start 02/21/17 at 07:00 Naloxone HCl (Narcan Inj) 0.4 mg UNSCH PRN IV PUSH SEE LABEL COMMENTS; Start at 23:15 Ondansetron HCl (Zofran Inj) 4 mg Q6H PRN IVP NAUSEA OR VOMITING; Start at 23:15 Senna/Docusate Sodium (Sulma-Colace) 1 tab BID PO Last administered on 02/23/17at 23:27; Start 02/21/17 at 09:00 Sennosides (Senokot) 17.2 mg Q12H PRN PO Moderate constipation; Start 02/20/17 at 23:15 Sodium Chloride (NS Flush) 2 ml BID IV FLUSH Last administered on 02/24/17at 09: 31; Start 02/21/17 at 09:00 A/P Assessment and Plan A/P Left pyelonephritis UTI - UA positive for nitrites, leukocytes, 11 red blood cells, 131 white blood cells, and many bacteria. Patient placed on IV antibiotics. switched to po abx. - UC with Klebsiella. 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 Oneal Questionable Colitis - CT abd/pelvis showing there is abnormal long segment circumferential bowel wall thickening involving the distal transverse colon from the splenic flexure through the distal descending colon to the ostomy site. This is characteristic of colitis. - surgery consult appreciated; low suspicion for colitis; f/u as outpatient. - C diff negative Possible HCAP -change to po antibiotic upon discharge. - incentive spirometry at bedside, encourage or the use - Supplemental oxygen to maintain O2 sat above 92%. Continue to monitor history status. Physical deconditioning postoperatively Unable to perform ADLs - PT/OT eval/tx - consulted case management to assist with discharge planning. Patient will likely need rehabilitation at time of discharge. Systolic CHF, compensated - Echocardiogram done 02/04/17 EF 30-35%, global left ventricular dysfunction , Yhbzebmb-ez-rdaire mitral valve regurgitation and igeqwqmk-yi-sxcban pulmonary hypertension present ( 65 mmHg). - No evidence of fluid overload on exam. Continue monitor closely. - Salt restricted diet. - Continue on beta maxwell CAD s/p cardiac stents - Patient has no complaints of chest pain at this time - monitor - Initiate aspirin therapy if no indication for procedure per DVT prophylaxis - Heparin sq Discharge Planning dc to SNF when arrangements made. f/u; pcp and surgery. Ankur Vu MD Feb 24, 2017 11:51
[2017-02-24] MEDS: cefTRIAXone INJ 1,000 MG in SODIUM CHLORIDE 0.9% INJ 100 ML IV SCH (12:48)
--- NOTE | 2017-02-24 13:36 | PD.WCN.NOT ---
Wound Consult Description: Consult for Ostomy Management per ALEENA Law Communicated with: Patient RN Recommendation: Empty pouch when half full Change appliance every 5-7 days and PRN for lifting or leaks. Additional Information: Patient seen in G[facility] for Ostomy assessment, teaching, and appliance change. Ostomy Type: Colostomy Surgeon: Ricardo Oneal MD Date of Surgery: Feb 05, 2017 Complete: Other (Appliance change using 2 3/4" moldable appliance with an extra barrier and pouch left in patient room for discharge.) Educated patient on: Emptying pouch before it gets full, possibly when 1/3-1/2 full Changing appliance every 5-7 days Cleansing skin with water only Using a skin prep to protect the peristomal skin When having an itching sensation from under the appliance it should be changed Additional information Patient seen on in G pod for ostomy appliance change, assessment, and teaching. Stoma is measuring 2" red, round, moist, moderately protruding, functioning with soft brown stool noted from lumen @ 7 o'clock. Mucocutaneous junction is noted with circumferential sutures otherwise unremarkable. Peristomal skin was cleansed with water and is noted to be unremarkable as well. Skin prep was used prior to applying a new moldable barrier size 2 3/4" and pouch. RN was notified of the appliance change. Patient was sleeping on and off during assessment, teaching, and appliance change. Megha Pierre [facility] Feb 24, 2017 13:36
== END 2017-02-24 16:54 ==
LOC: NEPC 15:04 → NEDA 22:52 → NEDH 02-21 05:11 → NEPGCP 02-21 11:00
PROVIDERS: ADMIT Internal Medicine; ATTEND Internal Medicine
DX: N12 Tubulo-interstitial nephritis, not specified as acute or chronic (principal); B96.20 Unspecified Escherichia coli [E. coli] as the cause of diseases classified elsewhere; I11.0 Hypertensive heart disease with heart failure; I50.22 Chronic systolic (congestive) heart failure; I25.10 Atherosclerotic heart disease of native coronary artery without angina pectoris; I27.20 Pulmonary hypertension, unspecified; C18.4 Malignant neoplasm of transverse colon; K52.9 Noninfective gastroenteritis and colitis, unspecified; J18.9 Pneumonia, unspecified organism; E78.5 Hyperlipidemia, unspecified; I25.2 Old myocardial infarction; G47.30 Sleep apnea, unspecified; I34.0 Nonrheumatic mitral (valve) insufficiency; J98.11 Atelectasis; Z95.5 Presence of coronary angioplasty implant and graft; Z90.49 Acquired absence of other specified parts of digestive tract
CPT/HCPCS: 71045; 71275; 74177; 80048; 80053; 81001; 83690; 85025; 85610; 85730; 87077; 87086; 87186; 87493; 93005; 94150; 94640; 96365; 96366; 96367; 96368; 96372; 97162; 97167; 99285; G0378; G8987; G8988; J0696; J0744; J1644; Q9967

== ENCOUNTER 2017-07-24 13:26 | Emergency (ER) | payer MEDICARE, MEDICAID ==
[~2017-07-24 13:26] MED LIST changes: +ASPI81TA23 PO; +CEFU1TAB18 PO; -LINA145C PO; +MECL12.574 PO; +guaiFENesin ER PO
[2017-07-24 13:29] VITALS: BP 118/77; PULSE 112; RESP 20; TEMP 98.3; O2SAT 94
[2017-07-24] MEDS ORDERED: PRIL20TA2 (13:33)
[2017-07-24] MEDS ORDERED: VALT1TAB PO (14:00)
--- NOTE | 2017-07-24 14:00 | PD ---
HPI Chief Complaint: GI Complaint Time Seen by Provider: 13:55 Travel History International Travel<30 days: No Contact w/Intl Traveler<30days: No Traveled to known affect area: No History of Present Illness HPI This 81-year-old female is complaining of sharp left-sided abdominal pain. She has been having the pain for several days. She says about a week ago she bumped her back against a truck and she thought that might have triggered. She had taken some Advil for pain and put some cream on the area. She had developed a rash and thought it might of been secondary to the cream. She had a colostomy last January after colon surgery. She does have a history of an ulcer. She has not had fever or chills. Has not been vomiting or diarrhea. PFSH Past Medical History Hx Anticoagulant Therapy: Yes (plavix) Arthritis: No Asthma: Yes Blood Disorders: No Heart Rhythm Problems: No Cancer: Yes (sigmoid colon cancer 2018) Cardiovascular Problems: Yes High Cholesterol: Yes Chemotherapy: No Chest Pain: No Congestive Heart Failure: No COPD: No Diminished Hearing: No Endocrine: No Gastrointestinal Disorders: Yes (mass on colon, colon resection, colostomy placement) Genitourinary: No Hypertension: Yes Immune Disorder: No Implanted Vascular Access Dvce: Yes Musculoskeletal: No Neurologic: No Psychiatric: No Reproductive: No Respiratory: Yes Myocardial Infarction: Yes Radiation Therapy: No Sleep Apnea: No Menopausal: Yes : 9 Para: 9 Past Surgical History Abdominal Surgery: No Cardiac Surgery: Yes (STENT) Coronary Stent: Yes Ear Surgery: No Endocrine Surgery: No Eye Surgery: Yes (RIGHT EYE REMOVED CATARACTS) Genitourinary Surgery: Yes (COLOSTOMY, COLON REMOVED) Gynecologic Surgery: No Oral Surgery: No Thoracic Surgery: No Other Surgery: Yes (stent, colon resection with colostomy) Social History Alcohol Use: No Tobacco Use: No Substance Use: No Allergies-Medications (Allergen,Severity, Reaction): Coded Allergies: penicillin G (Unverified Allergy, Severe, 07/24/17) Reported Meds & Prescriptions Reported Meds & Active Scripts Active Reported Prilosec (Omeprazole Magnesium) 20 Mg Tab Plavix (Clopidogrel Bisulfate) 75 Mg Tab 75 Mg PO HS Atorvastatin (Atorvastatin Calcium) 20 Mg Tab 20 Mg PO HS Metoprolol Tartrate 25 Mg Tab 25 Mg PO BID Review of Systems Except as stated in HPI: all other systems reviewed are Neg General / Constitutional: No: Fever HENT: No: Vertigo Cardiovascular: No: Chest Pain or Discomfort Gastrointestinal: Positive: Abdominal Pain, No: Vomiting, Diarrhea Genitourinary: No: Urgency Musculoskeletal: Positive: Pain, No: Myalgias Skin: Positive Rash Endocrine: No: Heat Intolerance Hematologic/Lymphatic: No: Easy Bruising Physical Exam Narrative GENERAL: Well-developed female SKIN: Focused skin assessment warm/dry. There is an erythematous rash involving the left T6 or T7 dermatome extending from the midline of the back to the midline anteriorly. There are some fine vesicles. HEAD: Atraumatic. Normocephalic. EYES: Pupils equal and round. No scleral icterus. No injection or drainage. ENT: No nasal bleeding or discharge. Mucous membranes pink and moist. NECK: Trachea midline. No JVD. CARDIOVASCULAR: Regular rate and rhythm. No murmur appreciated. RESPIRATORY: No accessory muscle use. Clear to auscultation. Breath sounds equal bilaterally. GASTROINTESTINAL: Abdomen soft, non-tender, nondistended. Hepatic and splenic margins not palpable. MUSCULOSKELETAL: No obvious deformities. No clubbing. No cyanosis. No edema. NEUROLOGICAL: Awake and alert. No obvious cranial nerve deficits. Motor grossly within normal limits. Normal speech. PSYCHIATRIC: Appropriate mood and affect; insight and judgment normal. Data Data Last Documented VS Vital Signs Date Time Temp Pulse Resp B/P (MAP) Pulse Ox O2 Delivery O2 Flow Rate FiO2 07/24/17 13:29 98.3 112 20 118/77 (91) 94 MDM Medical Decision Making Medical Screen Exam Complete: Yes Emergency Medical Condition: Yes Medical Record Reviewed: Yes Differential Diagnosis Differential includes shingles, abdominal pain Narrative Course Exam is consistent with shingles. Patient is not quite sure when it started but I am going to initiate antiviral treatment and will also start Neurontin 300 mg daily for pain Diagnosis Primary Impression: Herpes zoster Scripts Valacyclovir (Valtrex) 1,000 Mg Tab 1000 MG PO TID for Mgmt Viral Infection for 7 Days, #90 TAB 0 Refills Prov: Kt Cole MD 07/24/17 Disposition: 01 DISCHARGE HOME Condition: Stable Kt Cole MD Jul 24, 2017 14:00
== END 2017-07-24 14:14 | disposition home or self-care (01) ==
LOC: PHED 13:26
DX: B02.9 Zoster without complications (principal); J45.909 Unspecified asthma, uncomplicated; E78.00 Pure hypercholesterolemia, unspecified; I10 Essential (primary) hypertension; I25.2 Old myocardial infarction; Z85.038 Personal history of other malignant neoplasm of large intestine; Z90.49 Acquired absence of other specified parts of digestive tract; Z93.3 Colostomy status; Z95.5 Presence of coronary angioplasty implant and graft
CPT/HCPCS: 99283